=== PATIENT | male | born 1935 | race Caucasian/White ===

== ENCOUNTER 2016-09-02 14:48 | Emergency (ER) | payer MEDICARE, OTHER ==
[2016-09-02 15:05] VITALS: BP 140/78; PULSE 76; TEMP 98.5; BMI 24.7
--- NOTE | 2016-09-02 16:21 | PDOC ---
History of Present Illness - General Chief Complaint: Wound Infection Stated Complaint: Allergic Reaction Time Seen by Provider: 09/02/16 15:29 History Source: Patient Exam Limitations: No Limitations - History of Present Illness Initial Comments: 09/02/16 16:16 My Chief Complaint: tiny slit like area left corner of mouth History of present illness: Patient is a 80-year-old male with a history of hypertension, and hyperlipidemia and benign prostatic hypertrophy here today complaining of having a tender area on the corner of his left mouth for which he has been applying Zovirax cream 5% once daily and try minutes alone acetate 0.1% cream twice a day since 07/29/2016. Patient also reports that he put lemon juice on the area today. Skin on the corner of mouth appears hypopigmented & moist. Timing/Duration: other (since 07/29/16) Severity: mild Associated Symptoms: reports: other (moist, hypopigmented skin left corner of mouth ) Past History - Past Medical History Allergies/Adverse Reactions: Allergies Allergy/AdvReac Type Severity Reaction Status Date / Time No Known Allergies Allergy Verified 09/02/16 15:04 Home Medications: Ambulatory Orders Metoprolol Tartrate [Lopressor -] 50 mg PO DAILY 02/01/12 Ramipril 5 mg PO DAILY 02/03/14 Rosuvastatin Calcium [Crestor] 10 mg PO DAILY 02/03/14 Acetaminophen [Tylenol .Extra-Strength -] 500 mg PO Q6H PRN 08/01/15 Tamsulosin HCl [Flomax -] 0.8 mg PO HS 08/01/15 Anemia: No Asthma: No Cancer: No Cardiac Disorders: No CVA: No COPD: No CHF: No Dementia: No Diabetes: No GI Disorders: No Disorders: Yes (BPH) HTN: Yes Hypercholesterolemia: Yes Liver Disease: No Seizures: No Thyroid Disease: No - Surgical History Abdominal Surgery: Yes (Right Inguinal Hernia Repair) Appendectomy: No Cardiac Surgery: No Cholecystectomy: No Lung Surgery: No Neurologic Surgery: No Orthopedic Surgery: Yes (Right Knee Replacement) - Immunization History Immunization Up to Date: Yes - Psycho/Social/Smoking Cessation Hx Anxiety: No Suicidal Ideation: No Smoking Status: No Smoking History: Never smoked Have you smoked in the past 12 months: No Number of Cigarettes Smoked Daily: 0 Information on smoking cessation initiated: No Hx Alcohol Use: No Drug/Substance Use Hx: No Substance Use Type: None Hx Substance Use Treatment: No Review of Systems - Review of Systems HEENTM: No: Symptoms Reported Respiratory: No: Symptoms reported Cardiac (ROS): No: Symptoms Reported ABD/GI: No: Symptoms Reported : No: Symptoms Reported Musculoskeletal: No: Symptoms Reported Integumentary: Yes: Other (skin left corner of mouth moist, hypopigmented) Neurological: No: Symptoms reported *Physical Exam - Vital Signs Last Vital Signs Temp Pulse Resp BP Pulse Ox 98.5 F 76 18 140/78 100 09/02/16 14:55 09/02/16 14:55 09/02/16 14:55 09/02/16 14:55 09/02/16 14:55 - Physical Exam Comments: 09/02/16 16:21 General Appearance: Yes: Appropriately Dressed HEENT: positive: TMs Normal, Other (skin left corner of mouth, closed, hypopigmented, moist ). negative: Pharyngeal Erythema, Tonsillar Exudate, Tonsillar Erythema, Nasal Congestion, Rhinorrhea, Lesions Neck: negative: Lymphadenopathy (R), Lymphadenopathy (L) Respiratory/Chest: positive: Lungs Clear, Normal Breath Sounds. negative: Chest Tender, Respiratory Distress Cardiovascular: positive: Regular Rhythm, Regular Rate, S1, S2 Integumentary: positive: Moist (left corner of mouth, hypopigmented, closed ), Other Neurologic: positive: Fully Oriented, Alert, Normal Response, Responsive *DC/Admit/Observation/Transfer Diagnosis at time of Disposition: Angular cheilitis - Discharge Dispostion Disposition: HOME Condition at time of disposition: Stable - Patient Instructions Additional Instructions: follow up with treatment specialist Dr. Lofton at [phone] as soon as possible for further evaluation Stop using all creams or lemon juice to area Return to Emergency room if symptoms worsen Patient voiced understanding of discharge instructions and all questions were answered
== END 2016-09-02 16:33 | disposition home or self-care (01) ==
LOC: JER 14:48 → JERFT 14:48
DX: K13.0 Diseases of lips (principal); I10 Essential (primary) hypertension; E78.00 Pure hypercholesterolemia, unspecified; N40.0 Benign prostatic hyperplasia without lower urinary tract symptoms
CPT/HCPCS: 99281-25

== ENCOUNTER 2018-02-28 21:06 | Inpatient (IN) | payer MEDICARE, OTHER ==
--- NOTE | 2018-02-28 21:44 | PDOC ---
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 Son at bedside translating.) - History of Present Illness Initial Comments: 02/28/18 22:09 The patient is an 82M with a PMH of HTN, HLD, and BPH who presents to the ER with complaints of abdominal pain. The patient states that he's had 3 days of gradual onset, constant, and worsening LUQ pressure which radiates upwards to his chest. He admits to mild SOB, nausea, and NBNB vomiting 1 hour ago. He denies fevers and chills. He also states that he walked up 4 flights of stairs today (pt lives on 4th floor w/o elevator) and felt near syncopal but did not syncopize. Past History - Past Medical History Allergies/Adverse Reactions: Allergies Allergy/AdvReac Type Severity Reaction Status Date / Time No Known Allergies Allergy Verified 02/28/18 21:11 Home Medications: Ambulatory Orders Metoprolol Tartrate [Lopressor -] 50 mg PO DAILY 02/01/12 Ramipril 5 mg PO DAILY 02/03/14 Rosuvastatin Calcium [Crestor] 10 mg PO DAILY 02/03/14 Acetaminophen [Tylenol .Extra-Strength -] 500 mg PO Q6H PRN 08/01/15 Tamsulosin HCl [Flomax -] 0.8 mg PO HS 08/01/15 Anemia: No Asthma: No Cancer: No Cardiac Disorders: No CVA: No COPD: No CHF: No Dementia: No Diabetes: No GI Disorders: No Disorders: Yes (BPH) HTN: Yes Hypercholesterolemia: Yes Liver Disease: No Seizures: No Thyroid Disease: No - Surgical History Abdominal Surgery: Yes (Right Inguinal Hernia Repair) Appendectomy: No Cardiac Surgery: No Cholecystectomy: No Lung Surgery: No Neurologic Surgery: No Orthopedic Surgery: Yes (Right Knee Replacement) - Immunization History Immunization Up to Date: Yes - Suicide/Smoking/Psychosocial Hx Smoking Status: No Smoking History: Never smoked Have you smoked in the past 12 months: No Number of Cigarettes Smoked Daily: 0 Hx Alcohol Use: No Drug/Substance Use Hx: No Substance Use Type: None Hx Substance Use Treatment: No Review of Systems - Review of Systems Able to Perform ROS?: Yes Comments:: 02/28/18 22:21 GENERAL/CONSTITUTIONAL: No fever or chills. No weakness. HEAD, EYES, EARS, NOSE AND THROAT: No change in vision. No ear pain or discharge. No sore throat. CARDIOVASCULAR: Positive for lightheaded s/p stair climb. No chest pain, palpitations, or lightheadedness. RESPIRATORY: Positive for intermittent SOB. No cough, wheezing, or hemoptysis. GASTROINTESTINAL: Positive for nausea, vomiting, abdominal pain. GENITOURINARY: No dysuria, frequency, hematuria, or change in urination. MUSCULOSKELETAL: No joint or muscle swelling or pain. No neck or back pain. SKIN: No rash or lesions. NEUROLOGIC: No headache, numbness, tingling, focal weakness, loss of consciousness, or change in strength/sensation. Is the patient limited [place] proficient: No *Physical Exam - Vital Signs Last Vital Signs Temp Pulse Resp BP Pulse Ox 98.7 F 67 18 127/66 100 02/28/18 21:08 02/28/18 21:08 02/28/18 21:08 02/28/18 21:08 02/28/18 21:08 - Physical Exam Comments: 02/28/18 22:24 GENERAL: Well developed, well nourished. Awake and alert. No acute distress. HEENT: Normocephalic, atraumatic. Hearing grossly normal. Moist mucous membranes. PERRLA, EOMI. No conjunctival pallor. Sclera are non-icteric. NECK: Supple. Full ROM. No JVD. CARDIOVASCULAR: Regular rate and rhythm. No murmurs, rubs, or gallops. PULMONARY: No evidence of respiratory distress. Lungs clear to auscultation bilaterally. No wheezing, rales or rhonchi. ABDOMINAL: Soft. TTP over LUQ and LLQ. Non-distended. No rebound or guarding. GENITOURINARY: No CVA tenderness bilaterally. MUSCULOSKELETAL: Normal range of motion at all joints. No bony deformities or tenderness. EXTREMITIES: No cyanosis. No clubbing. No edema. No calf tenderness or swelling. SKIN: Warm and dry. Normal capillary refill. No rashes. No jaundice. NEUROLOGICAL: Alert, awake, appropriate. Cranial nerves 2-12 grossly intact. Normal speech. Gait is normal without ataxia. PSYCHIATRIC: Cooperative. Good eye contact. Appropriate mood and affect. ED Treatment Course - LABORATORY CBC & Chemistry Diagram: 02/28/18 21:45 02/28/18 21:45 - RADIOLOGY Radiology Studies Ordered: Category Date Time Status ABDOMEN & PELVIS CT WITH CONTR [CT] Stat CT Scan 02/28/18 21:36 Ordered CHEST X-RAY PORTABLE* [RAD] Stat Radiology 02/28/18 21:37 Ordered Medical Decision Making - Medical Decision Making 02/28/18 22:25 The patient is an 82M with a PMH of HTN, HLD, and BPH who presents to the ER with 3 days of worsening LUQ pain radiating to his chest, concerning for ACS, pancreatitis, diverticulitis. Pending labs, EKG, CXR, and CTAP. CBC shows mild leukocytosis of 12. CMP, lipase, and troponin. 02/28/18 23:10 Lipase >30,000. Will d/c CTAP and admit for pancreatitis. 03/01/18 00:24 I have endorsed the patient to Dr. Benavides for admission. *DC/Admit/Observation/Transfer Diagnosis at time of Disposition: Pancreatitis Qualifiers: Chronicity: acute Pancreatitis type: alcohol induced Acute pancreatitis complication: unspecified Qualified Code(s): K85.20 - Alcohol induced acute pancreatitis without necrosis or infection - Discharge Dispostion Condition at time of disposition: Guarded Decision to Admit order: Yes - Referrals - Patient Instructions - Post Discharge Activity
--- NOTE | 2018-02-28 22:03 | PDOC ---
Attending Attestation - HPI HPI: 02/28/18 22:54 The patient is a 82 year old male with a significant PMH of hypertension and hyperlipidemia who presents to the emergency department with left upper quadrant pain for 3 days. The patient describes his abdominal pain as pressure like. He reports some associated shortness of breath, nausea and vomiting ( non bilious/ non bloody). The patient states that his abdominal pain has been constant and worsening for these past 3 days. As per family at bedside, the patient experienced a near syncopal episode this afternoon secondary to going up 4 flights of stairs at home and feeling lightheadedness. The patient denies any other symptoms. He denies any fever, chills, diarrhea, constipation, or urinary symptoms. He denies any chest pain, headache or dizziness. The patient denies any other complaints. - Physicial Exam PE: 02/28/18 22:55 GENERAL: Awake, alert, and fully oriented, in no acute distress HEAD: No signs of trauma EYES: PERRLA, EOMI, sclera anicteric, conjunctiva clear ENT: Auricles normal inspection, hearing grossly normal, nares patent, oropharynx clear without exudates. Moist mucosa NECK: Normal ROM, supple, no lymphadenopathy, JVD, or masses LUNGS: Breath sounds equal, clear to auscultation bilaterally. No wheezes, and no crackles HEART: Regular rate and rhythm, normal S1 and S2, no murmurs, rubs or gallops ABDOMEN: (+)LUQ EPIGASTRIC TENDERNESS. Soft, normoactive bowel sounds. No guarding, no rebound. No masses EXTREMITIES: Normal range of motion, no edema. No clubbing or cyanosis. No cords, erythema, or tenderness NEUROLOGICAL: Cranial nerves II through XII grossly intact. Normal speech, normal gait SKIN: Warm, Dry, normal turgor, no rashes or lesions noted. Documentation prepared by Judi Bustos, acting as medical laboratory manager for Stacia Stratton MD. <Judi Bustos - Last Filed: 02/28/18 22:54> - Resident Resident Name: Brian Vee - ED Attending Attestation I have performed the following: I have examined & evaluated the patient, The case was reviewed & discussed with the resident, I agree w/resident's findings & plan - Physicial Exam PE: 03/01/18 00:18 Pt has no icterus. His skin is not jaundiced; He has RUQ pain and he has slight pain with respirations as a result. Pt has no flank pain and he has no pitting edema. Pt has some right sided inguinal lymph nodes. Pt has no fever. - Medical Decision Making 03/01/18 00:19 Pt has decreased oral iintake x 3 days. Pt states that he hasn't had a drink in 40 yrs, and that he used to be an alcoholic. <Stacia Stratton - Last Filed: 03/01/18 00:20>
[2018-02-28 22:05] LABS: BASO % 0.4 % (0-2.0); EOS % 0.4 % (0-4.5); HEMOGLOBIN 15.4 GM/dL (11.7-16.9); LYMPH % 5.5 % (8-40); MCH 33.3 pg (25.7-33.7); MCHC 34.3 g/dl (32.0-35.9); MEAN CELL VOLUME 97.1 fl (80-96); MEAN PLT VOLUME 10.6 fl (7.5-11.1); MONO % 5.6 % (3.8-10.2); NEUT % 88.1 % (42.8-82.8); PLATELET COUNT 201 K/MM3 (134-434); RBC 4.63 M/mm3 (4.00-5.60); RDW 13.2 % (11.9-15.9); WHITE BLOOD COUNT 12.1 K/mm3 (4.0-10.0)
[2018-02-28 23:06] LABS: ALBUMIN 3.6 g/dl (3.4-5.0); ALK PHOS 154 U/L (45-117); ANION GAP 7 MMOL/L (8-16); BILIRUBIN,TOTAL 2.7 mg/dL (0.2-1); BLOOD UREA NITROGEN 12 mg/dL (7-18); CALCIUM 8.8 mg/dL (8.5-10.1); CHLORIDE 102 mmol/L (98-107); CO2 31 mmol/L (21-32); CREATININE 0.9 mg/dL (0.55-1.3); GLUCOSE,RANDOM 128 mg/dL (74-106); POTASSIUM 3.5 mmol/L (3.5-5.1); SGOT/AST 506 U/L (15-37); SGPT/ALT 334 U/L (13-61); SODIUM 140 mmol/L (136-145); TOT PROT 7.2 g/dl (6.4-8.2)
[2018-02-28] MEDS ORDERED: ACETAMINOPHEN 1000 MG/100 ML VIAL (NON FORMULARY) IVPB ONE (23:13)
[2018-02-28] MEDS ORDERED: SODIUM CHLORIDE 0.9% 1000 ML INFUS.BAG IV ONE (23:13)
[2018-02-28 23:27] LABS: LIPASE > 30000 U/L (73-393)
[2018-02-28] MEDS ORDERED: ACETAMINOPHEN INJECTION 100 ML IVPB ONE (23:55)
[2018-03-01] MEDS ORDERED: LACTATED RINGERS SOLUTION 1,000 ML IV SCH (01:15)
--- NOTE | 2018-03-01 01:37 | HP ---
CHIEF COMPLAINT: abdominal pain PCP: HISTORY OF PRESENT ILLNESS: Pt is an 82 y/o M with PMH HLD, HTN who presents to ED with 3 d abdominal pain, nausea, and 1 episode vomiting red stomach contents after eating a red fruit. Pain is intermittent with no exacerbating or alleviating factors. Pt states he has never had this pain before. No other complaints. No diarrhea/dysuria. ER course was notable for: (1) vitals stable. (2) WBC 12, AST 506, ALT 334, ALP 154, Lipase 32648 (3) NS, ofirmev Recent Travel: PAST MEDICAL HISTORY: HLD, HTN PAST SURGICAL HISTORY: Social History: Smoking: denies Alcohol: former. No EtOH in 37 years Drugs: denies Family History: Allergies No Known Allergies Allergy (Verified 02/28/18 21:11) HOME MEDICATIONS: Home Medications Medication Instructions Recorded Metoprolol Tartrate [Lopressor -] 50 mg PO DAILY 02/01/12 Ramipril 5 mg PO DAILY 02/03/14 Rosuvastatin Calcium [Crestor] 10 mg PO DAILY 02/03/14 Acetaminophen [Tylenol 500 mg PO Q6H PRN 08/01/15 .Extra-Strength -] Tamsulosin HCl [Flomax -] 0.8 mg PO HS 08/01/15 REVIEW OF SYSTEMS CONSTITUTIONAL: Absent: fever, chills, diaphoresis, generalized weakness, malaise, loss of appetite, weight change HEENT: Absent: rhinorrhea, nasal congestion, throat pain, throat swelling, difficulty swallowing, mouth swelling, ear pain, eye pain, visual changes CARDIOVASCULAR: Absent: chest pain, syncope, palpitations, irregular heart rate, lightheadedness , peripheral edema RESPIRATORY: Absent: cough, shortness of breath, dyspnea with exertion, orthopnea, wheezing, stridor, hemoptysis GASTROINTESTINAL: abdominal pain, nausea, vomiting Absent: , abdominal distension, diarrhea, constipation, melena, hematochezia GENITOURINARY: Absent: dysuria, frequency, urgency, hesitancy, hematuria, flank pain, genital pain MUSCULOSKELETAL: Absent: myalgia, arthralgia, joint swelling, back pain, neck pain SKIN: Absent: rash, itching, pallor HEMATOLOGIC/IMMUNOLOGIC: Absent: easy bleeding, easy bruising, lymphadenopathy, frequent infections ENDOCRINE: Absent: unexplained weight gain, unexplained weight loss, heat intolerance, cold intolerance NEUROLOGIC: Absent: headache, focal weakness or paresthesias, dizziness, unsteady gait, seizure, mental status changes, bladder or bowel incontinence PSYCHIATRIC: Absent: anxiety, depression, suicidal or homicidal ideation, hallucinations. PHYSICAL EXAMINATION Vital Signs - 24 hr 02/28/18 21:08 Temperature 98.7 F Pulse Rate 67 Respiratory 18 Rate Blood Pressure 127/66 O2 Sat by Pulse 100 Oximetry (%) Gen: NAD comfortable HEENT: NCAT, eomi neck: supple no jvd Cardio: rrr, normal s1s2, no mrg Pulm: cta b/l Abd: nondistended, soft, tender in epigastrium, RUQ, LUQ, pos bs ext: 2+ pulses Laboratory Results - last 24 hr 02/28/18 02/28/18 21:45 21:45 WBC 12.1 H RBC 4.63 Hgb 15.4 Hct 45.0 MCV 97.1 H MCH 33.3 MCHC 34.3 RDW 13.2 Plt Count 201 D MPV 10.6 Absolute Neuts (auto) 10.7 H Neutrophils % 88.1 H D Lymphocytes % 5.5 L D Monocytes % 5.6 Eosinophils % 0.4 Basophils % 0.4 Nucleated RBC % 0 Sodium 140 Potassium 3.5 Chloride 102 Carbon Dioxide 31 Anion Gap 7 L BUN 12 Creatinine 0.9 Creat Clearance w eGFR > 60 Random Glucose 128 H Calcium 8.8 Total Bilirubin 2.7 H AST 506 H ALT 334 H Alkaline Phosphatase 154 H Creatine Kinase 78 Troponin I < 0.02 Total Protein 7.2 Albumin 3.6 Lipase > 26312 H CTAP imaging sap pp consultant: Peripancreatic fat stranding, correlate clinically for acute pancreatitis. 1 cm lipomatous focus incidentally noted in pancreatic body. No bowel obstruction, colitis, free fluid or free air. Normal appendix. Diverticulosis colon without acute diverticulitis. Unremarkable gallbladder. Small left renal cyst. Small umbilical and left inguinal region hernias containing fat. ASSESSMENT/PLAN: Pt is an 82 y/o M w/ PMH HTN, HLD who presented to ED with complaint of abd pain , nausea, and vomiting. Pt found to have acute pancreatitis. #Acute pancreatitis -Lipase > 30k -CT with fat stranding -abdominal pain -unclear etiology at this time. Pt is not a drinker, and has concominant transaminitis. No stone on imaging -LR @ 125 -NPO -morphine PRN #transaminitis -follow up official abdominal imaging read -repeat labs #HTN -c/w home Lopressor 50, ramipril 5 #HLD -c/w home crestor 10 #BPH -c/w flomax #FEN -LR -lytes wnl -NPO #PPx -HSQ #Dispo -Medsurg Joby Armstrong MD PGY-2 IM Visit type - Emergency Visit Emergency Visit: Yes ED Registration Date: 02/28/18 Care time: The patient presented to the Emergency Department on the above date and was hospitalized for further evaluation of their emergent condition. - New Patient This patient is new to me today: Yes Date on this admission: 03/01/18 - Critical Care Critical Care patient: No
--- NOTE | 2018-03-01 01:45 | PN ---
Teaching Attending Note Name of Resident: Joby Armstrong ATTENDING PHYSICIAN STATEMENT I saw and evaluated the patient. I reviewed the resident's note and discussed the case with the resident. I agree with the resident's findings and plan as documented. SUBJECTIVE: OBJECTIVE: ASSESSMENT AND PLAN: 82 y/o M with PMH HLD, HTN who presents to ED with 3 d abdominal pain, nausea, and 1 episode vomiting red stomach contents after eating a red fruit. Pain is intermittent with no exacerbating or alleviating factors. Pt states he has never had this pain before. No other complaints. No diarrhea/dysuria. plan: admit patient for acute pancreatitis c/w home medication feed the patient whenever the patient requires GI consult pain management trend LFT abdominal US possible MRCP patient can have developed choledocolithisis induced pancreatitis will follow up with GI recommendation hold the rosuvastatin for the elevated liver enzymes c/w metoprolol c/w ramipirl if the bp is elevated
[2018-03-01] MEDS ORDERED: HEPARIN NA (PORCINE) 5,000 UNITS/ML 1ML VIAL SQ SCH (06:00)
[2018-03-01 06:21] LABS: BASO % 0.4 % (0-2.0); EOS % 0.5 % (0-4.5); HEMATOCRIT 41.2 % (35.4-49); HEMOGLOBIN 14.5 GM/dL (11.7-16.9); LYMPH % 16.2 % (8-40); MCH 33.9 pg (25.7-33.7); MCHC 35.2 g/dl (32.0-35.9); MEAN CELL VOLUME 96.5 fl (80-96); MEAN PLT VOLUME 10.5 fl (7.5-11.1); MONO % 6.7 % (3.8-10.2); NEUT % 76.2 % (42.8-82.8); PLATELET COUNT 202 K/MM3 (134-434); RBC 4.27 M/mm3 (4.00-5.60); RDW 13.4 % (11.9-15.9); WHITE BLOOD COUNT 8.1 K/mm3 (4.0-10.0)
[2018-03-01 06:37] LABS: ALBUMIN 3.2 g/dl (3.4-5.0); ALK PHOS 125 U/L (45-117); ANION GAP 5 MMOL/L (8-16); BILIRUBIN,TOTAL 1.7 mg/dL (0.2-1); BLOOD UREA NITROGEN 12 mg/dL (7-18); CALCIUM 8.2 mg/dL (8.5-10.1); CHLORIDE 104 mmol/L (98-107); CO2 31 mmol/L (21-32); CREATININE 0.8 mg/dL (0.55-1.3); GLUCOSE,RANDOM 110 mg/dL (74-106); MAGNESIUM 2.3 mg/dL (1.8-2.4); PHOSPHOROUS 4.2 mg/dL (2.5-4.9); SGOT/AST 261 U/L (15-37); SGPT/ALT 288 U/L (13-61); SODIUM 140 mmol/L (136-145); TOT PROT 6.2 g/dl (6.4-8.2)
[2018-03-01] MEDS ORDERED: METOPROLOL TARTRATE 50 MG TABLET (FP) PO SCH (10:00)
[2018-03-01] MEDS: MORPHINE SULFATE 2 MG/ML VIAL IVPUSH PRN (10:08)
[2018-03-01] MEDS: RAMIPRIL 5 MG CAPSULE (FP) PO SCH (10:39)
--- NOTE | 2018-03-01 11:41 | EKG ---
Test Reason : Blood Pressure : / mmHG Vent. Rate : 067 BPM Atrial Rate : 067 BPM P-R Int : 194 ms QRS Dur : 080 ms QT Int : 438 ms P-R-T Axes : 044 -22 034 degrees QTc Int : 462 ms SINUS RHYTHM WITH OCCASIONAL PREMATURE VENTRICULAR COMPLEXES AND PREMATURE ATRIAL COMPLEXES WHEN COMPARED WITH ECG OF 01-AUG-2015 11:39, PREMATURE VENTRICULAR COMPLEXES ARE NOW PRESENT Confirmed by RADHA TERRELL MD ([id number]) on 03/01/2018 11:41:08 AM Referred By: Confirmed By:RADHA TERRELL MD
--- NOTE | 2018-03-01 11:54 | PN ---
Progress Note (short form) - Note Progress Note: Subjective: abd pain subsided now after pain meds. reports intermittent pain in LLQ with radiation to epigastric area since . pain lasted x 2-3 hours each time, then became constant yesterday. no alcohol use , no h/o gall stones, no drug use. no episodes like that in past. Objective: Vital Signs: Last Vital Signs Temp Pulse Resp BP Pulse Ox 98.4 F 69 20 140/88 100 03/01/18 06:45 03/01/18 06:45 03/01/18 06:45 03/01/18 06:45 03/01/18 04:30 Laboratory Results - last 24 hr 02/28/18 02/28/18 03/01/18 21:45 21:45 06:08 WBC 12.1 H 8.1 RBC 4.63 4.27 Hgb 15.4 14.5 Hct 45.0 41.2 MCV 97.1 H 96.5 H MCH 33.3 33.9 H MCHC 34.3 35.2 RDW 13.2 13.4 Plt Count 201 D 202 MPV 10.6 10.5 Absolute Neuts (auto) 10.7 H 6.1 Neutrophils % 88.1 H D 76.2 Lymphocytes % 5.5 L D 16.2 D Monocytes % 5.6 6.7 Eosinophils % 0.4 0.5 Basophils % 0.4 0.4 Nucleated RBC % 0 0 Sodium 140 Potassium 3.5 Chloride 102 Carbon Dioxide 31 Anion Gap 7 L BUN 12 Creatinine 0.9 Creat Clearance w eGFR > 60 Random Glucose 128 H Calcium 8.8 Phosphorus Magnesium Total Bilirubin 2.7 H AST 506 H ALT 334 H Alkaline Phosphatase 154 H Creatine Kinase 78 Troponin I < 0.02 Total Protein 7.2 Albumin 3.6 Lipase > 34971 H 03/01/18 06:08 WBC RBC Hgb Hct MCV MCH MCHC RDW Plt Count MPV Absolute Neuts (auto) Neutrophils % Lymphocytes % Monocytes % Eosinophils % Basophils % Nucleated RBC % Sodium 140 Potassium 4.0 Chloride 104 Carbon Dioxide 31 Anion Gap 5 L BUN 12 Creatinine 0.8 Creat Clearance w eGFR > 60 Random Glucose 110 H Calcium 8.2 L Phosphorus 4.2 Magnesium 2.3 Total Bilirubin 1.7 H AST 261 H ALT 288 H Alkaline Phosphatase 125 H Creatine Kinase Troponin I Total Protein 6.2 L Albumin 3.2 L Lipase Physical Exam: NAD , AAox3. HEENT: icteric sclera, jaundiced MM. MMM CV: RRR no mTRG Lungs: CATB Abd: sfot, ND, TTP in all quadrants, no rebound tenderness or guarding, Neg Bautista's Ext : no edema ,. scaly skin on toes Imaging: Ct scan image reviewed. report pending Assessment/Plan: 82 y/o man with h/o HTN, HLP, and BPH who presented with abd pain and was found to have acute pancreatitis with transaminitis . 1- Acute pancreatitis: unclear etiology, but might be due to gall stones . he might have passed a stone. doubt cholecystitis. no alcohol use or drug use. he is not taking statins an y more. - IVF - pain control - check triglycerides - check MRCP to r/o CBD stones and to evaluate tail of pancreas. - GI consult - monitor LFTs 2- HTN: cont toprol and ramipril 3- BPH hold off DVT px in case he needs ERCP d/w him and his son Visit type - Emergency Visit Emergency Visit: Yes ED Registration Date: 02/28/18 Care time: The patient presented to the Emergency Department on the above date and was hospitalized for further evaluation of their emergent condition. - New Patient This patient is new to me today: Yes Date on this admission: 03/01/18 - Critical Care Critical Care patient: No
--- NOTE | 2018-03-01 12:43 | CON.GI ---
Consult Consult Specialty:: Gastroenterology Referred by:: Dr. Jeni Castro Reason for Consultation:: abdominal pain - History of Present Illness Chief Complaint: severe abdominal pain and inability to eat History of Present Illness: 82M developed severe left abdominal pain on 02/26 that later spread to the epigastrium. He has been unable to eat since the pain began. He has been moving his bowels well. Has nausea and did vomit a few times. He had a near syncopal spell at home. He has never had this pain before. He had an EGD with Dr Britt which was unrevealing and a colonoscopy with my group that he also reports as having been normal. No previous GI problems. No alcohol usage. His lipase is over 30K and his LFTs and bilirubin are elevated and trending down. CT scan reveals pancreatitis. His son Cesar served as our foreign language interpreter. 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 (year): age 42 History of Recent Travel: No Home Medications - Allergies Allergies/Adverse Reactions: Allergies Allergy/AdvReac Type Severity Reaction Status Date / Time No Known Allergies Allergy Verified 02/28/18 21:11 - Home Medications Home Medications: Ambulatory Orders Ramipril 5 mg PO DAILY 02/03/14 Tamsulosin HCl [Flomax -] 0.8 mg PO HS 08/01/15 Metoprolol Succinate 50 mg PO DAILY 03/01/18 Family Disease History - Family Disease History Family Disease History: Heart Disease: Mother ( 72 heart disease), CA: Father ( 83 throat cancer), Other: Father, Sister (Alzheimers) Review of Systems - Review of Systems Constitutional: reports: No Symptoms Eyes: reports: No Symptoms HENT: reports: No Symptoms Neck: reports: No Symptoms Cardiovascular: reports: No Symptoms Respiratory: reports: No Symptoms Gastrointestinal: reports: No Symptoms Genitourinary: reports: Frequency Musculoskeletal: reports: No Symptoms Physical Exam-GI Vital Signs: Vital Signs Temperature 98.4 F 03/01/18 06:45 Pulse Rate 69 03/01/18 06:45 Respiratory Rate 20 03/01/18 06:45 Blood Pressure 140/88 03/01/18 06:45 O2 Sat by Pulse Oximetry (%) 100 03/01/18 04:30 CBC,CMP WBC 8.1 K/mm3 (4.0-10.0) 03/01/18 06:08 RBC 4.27 M/mm3 (4.00-5.60) 03/01/18 06:08 Hgb 14.5 GM/dL (11.7-16.9) 03/01/18 06:08 Hct 41.2 % (35.4-49) 03/01/18 06:08 MCV 96.5 fl (80-96) H 03/01/18 06:08 MCH 33.9 pg (25.7-33.7) H 03/01/18 06:08 MCHC 35.2 g/dl (32.0-35.9) 03/01/18 06:08 RDW 13.4 % (11.9-15.9) 03/01/18 06:08 Plt Count 202 K/MM3 (134-434) 03/01/18 06:08 MPV 10.5 fl (7.5-11.1) 03/01/18 06:08 Absolute Neuts (auto) 6.1 K/mm3 (1.5-8.0) 03/01/18 06:08 Neutrophils % 76.2 % (42.8-82.8) 03/01/18 06:08 Lymphocytes % 16.2 % (8-40) D 03/01/18 06:08 Monocytes % 6.7 % (3.8-10.2) 03/01/18 06:08 Eosinophils % 0.5 % (0-4.5) 03/01/18 06:08 Basophils % 0.4 % (0-2.0) 03/01/18 06:08 Nucleated RBC % 0 % (0-0) 03/01/18 06:08 Sodium 140 mmol/L (136-145) 03/01/18 06:08 Potassium 4.0 mmol/L (3.5-5.1) 03/01/18 06:08 Chloride 104 mmol/L (98-107) 03/01/18 06:08 Carbon Dioxide 31 mmol/L (21-32) 03/01/18 06:08 Anion Gap 5 MMOL/L (8-16) L 03/01/18 06:08 BUN 12 mg/dL (7-18) 03/01/18 06:08 Creatinine 0.8 mg/dL (0.55-1.3) 03/01/18 06:08 Creat Clearance w eGFR > 60 (>60) 03/01/18 06:08 Random Glucose 110 mg/dL (74-106) H 03/01/18 06:08 Calcium 8.2 mg/dL (8.5-10.1) L 03/01/18 06:08 Phosphorus 4.2 mg/dL (2.5-4.9) 03/01/18 06:08 Magnesium 2.3 mg/dL (1.8-2.4) 03/01/18 06:08 Total Bilirubin 1.7 mg/dL (0.2-1) H 03/01/18 06:08 AST 261 U/L (15-37) H 03/01/18 06:08 ALT 288 U/L (13-61) H 03/01/18 06:08 Alkaline Phosphatase 125 U/L (45-117) H 03/01/18 06:08 Creatine Kinase 78 IU/L (26-308) 02/28/18 21:45 Troponin I < 0.02 ng/ml (0.00-0.05) 02/28/18 21:45 Total Protein 6.2 g/dl (6.4-8.2) L 03/01/18 06:08 Albumin 3.2 g/dl (3.4-5.0) L 03/01/18 06:08 Lipase > 25323 U/L (73-393) H 02/28/18 21:45 Current Medications Generic Name Dose Route Start Last Admin Trade Name Freq PRN Reason Stop Dose Admin Lactated Ringer's 1,000 mls @ 125 mls/hr 03/01/18 01:15 EST 03/01/18 02:45 Lactated Ringers Solution IV 125 mls/hr ASDIR [facility] Administration Metoprolol Succinate 50 mg 03/02/18 10:00 Toprol Xl - PO DAILY [facility] Morphine Sulfate 2 mg 03/01/18 01:59 EST 03/01/18 10:08 Morphine Sulfate IVPUSH 2 mg Q6H PRN Administration PAIN LEVEL 1-5 Ramipril 5 mg 03/01/18 10:00 03/01/18 10:39 Altace - PO 5 mg DAILY [facility] Administration Tamsulosin HCl 0.8 mg 03/01/18 22:00 Flomax - PO HS [facility] Constitutional: Yes: Calm Eyes: Yes: Conjunctiva Clear HENT: Yes: Atraumatic Neck: Yes: Supple Cardiovascular: Yes: Regular Rate and Rhythm Respiratory: Yes: CTA Bilaterally Gastrointestinal Inspection: Yes: WNL, Scars (RIH incision) ...Auscultate: Yes: Hypoactive Bowel Sounds ...Palpate: Yes: Tenderness (diffuse tenderness that is worst in the LLQ, no peritoneal signs) ...Rectal Exam: Yes: Guaiac Negative, Other (2+ prostate, no masses, g neg stool ) Edema: No Peripheral Pulses WNL: Yes Neurological: Yes: Alert, Oriented Labs: CBC, BMP 03/01/18 06:08 03/01/18 06:08 Laboratory Tests 02/01/12 08/01/15 02/28/18 10:46 11:53 21:45 Total Bilirubin 1.3 H 0.8 D 2.7 H ALT 35 20 D 334 H AST 25 24 506 H Alkaline Phosphatase 154 H Lipase > 06165 H 03/01/18 06:08 Total Bilirubin 1.7 H ALT 288 H AST 261 H Alkaline Phosphatase 125 H Lipase Imaging - Results Cat Scan: Image Reviewed (pancreatitis is evident) Problem List - Problems (1) Acute biliary pancreatitis Assessment/Plan: The pain pattern, imaging and LFT abnormalities are most consistent with biliary pancreatitis. With his son Herbert franco I therefore discussed the ultimate need for surgery and more imminent need for an ERCP. I have informed him of the potential complications associated with ERCP including perforation, hemorrhage and ERCP induced pancreatitis that could lead to multiorgan failure. The downward LFT trend suggests that he has passed the stone. Await MRCP results. Surgery should be consulted. Will order blood cultures, start antibiotics and increase RL rate. Code(s): K85.10 - BILIARY ACUTE PANCREATITIS WITHOUT NECROSIS OR INFECTION (2) Abdominal pain Code(s): R10.9 - UNSPECIFIED ABDOMINAL PAIN (3) Vomiting Code(s): R11.10 - VOMITING, UNSPECIFIED (4) Abnormal liver function tests Code(s): R94.5 - ABNORMAL RESULTS OF LIVER FUNCTION STUDIES Assessment/Plan NPO for biliary pancreatittis Will start antibiotics to protect against cholangitis Await MRCP as may need ERCP Communicated with Dr Castro for surgical consultation and in general about this case
[2018-03-01] MEDS: LACTATED RINGERS SOLUTION 1,000 ML IV SCH (13:18)
[2018-03-01 14:19] VITALS: BMI 24.0
[2018-03-01] MEDS: AMPICILLIN NA/SULBACTAM NA 1.5 GM in SODIUM CHLORIDE 100 ML IVPB SCH (18:17)
[2018-03-01] MEDS: TAMSULOSIN HCL 0.4 MG CAP PO SCH (21:46)
[2018-03-01] MEDS ORDERED: ROSUVASTATIN CA 10 MG TABLET (FP) PO SCH (22:00)
[2018-03-02] MEDS: LACTATED RINGERS SOLUTION 1,000 ML IV SCH (00:30)
[2018-03-02] MEDS: AMPICILLIN NA/SULBACTAM NA 1.5 GM in SODIUM CHLORIDE 100 ML IVPB SCH ×3 (01:04→18:04)
[2018-03-02 06:30] LABS: BASO % 0.3 % (0-2.0); EOS % 0.5 % (0-4.5); HEMATOCRIT 38.8 % (35.4-49); HEMOGLOBIN 13.7 GM/dL (11.7-16.9); LYMPH % 9.7 % (8-40); MCH 34.3 pg (25.7-33.7); MCHC 35.2 g/dl (32.0-35.9); MEAN CELL VOLUME 97.5 fl (80-96); MEAN PLT VOLUME 10.7 fl (7.5-11.1); MONO % 7.1 % (3.8-10.2); NEUT % 82.4 % (42.8-82.8); PLATELET COUNT 179 K/MM3 (134-434); RBC 3.98 M/mm3 (4.00-5.60); RDW 13.2 % (11.9-15.9); WHITE BLOOD COUNT 9.8 K/mm3 (4.0-10.0)
[2018-03-02 06:46] LABS: INR 1.25 (0.83-1.09); PROTHROMBIN TIME (PATIENT) 14.8 SEC (9.7-13.0)
[2018-03-02 07:01] LABS: ALBUMIN 2.8 g/dl (3.4-5.0); ALK PHOS 96 U/L (45-117); AMYLASE 180 U/L (25-115); ANION GAP 9 MMOL/L (8-16); BILIRUBIN,DIRECT 0.4 mg/dL (0.0-0.2); BILIRUBIN,TOTAL 1.8 mg/dL (0.2-1); BLOOD UREA NITROGEN 11 mg/dL (7-18); CALCIUM 7.9 mg/dL (8.5-10.1); CHLORIDE 102 mmol/L (98-107); CO2 27 mmol/L (21-32); CREATININE 0.7 mg/dL (0.55-1.3); GLUCOSE,RANDOM 96 mg/dL (74-106); LIPASE 313 U/L (73-393); MAGNESIUM 1.9 mg/dL (1.8-2.4); PHOSPHOROUS 3.5 mg/dL (2.5-4.9); POTASSIUM 3.5 mmol/L (3.5-5.1); SGOT/AST 96 U/L (15-37); SGPT/ALT 153 U/L (13-61); SODIUM 138 mmol/L (136-145); TOT PROT 5.5 g/dl (6.4-8.2)
[2018-03-02] MEDS ORDERED: LACTATED RINGERS SOLUTION 1,000 ML IV SCH ×2 (08:45→21:23)
[2018-03-02] MEDS ORDERED: AMPICILLIN NA/SULBACTAM NA 1.5 GM VIAL ONE ×2 (09:05→17:42)
[2018-03-02] MEDS ORDERED: SODIUM CHLORIDE 100 ML IVPB ONE ×2 (09:05→17:42)
[2018-03-02] MEDS: RAMIPRIL 5 MG CAPSULE (FP) PO SCH (10:28)
--- NOTE | 2018-03-02 10:42 | CONSULT ---
- Consultation REQUESTING PROVIDER: Matthew SHEPHERD CONSULT REQUEST: We have been asked to surgically evaluate this patient for ( specify). PCP:Jeni Castro HISTORY OF PRESENT ILLNESS: Nausea and vomiting and abdominal pain after eating which brought him to the ER; he never had this before PMHx: HTN; BPH PSHx: none Home Medications Medication Instructions Recorded Ramipril 5 mg PO DAILY 02/03/14 Tamsulosin HCl [Flomax -] 0.8 mg PO HS 08/01/15 Metoprolol Succinate 50 mg PO DAILY 03/01/18 Allergies Allergy/AdvReac Type Severity Reaction Status Date / Time No Known Allergies Allergy Verified 02/28/18 21:11 REVIEW OF SYSTEMS: CONSTITUTIONAL: Absent: fever, chills, diaphoresis, generalized weakness, malaise, loss of appetite, weight change CARDIOVASCULAR: Absent: chest pain, syncope, palpitations, irregular heart rate, lightheadedness , peripheral edema RESPIRATORY: Absent: cough, shortness of breath, dyspnea with exertion, wheezing, stridor, hemoptysis GASTROINTESTINAL: Absent: abdominal pain, abdominal distension, nausea, vomiting, diarrhea, constipation, melena, hematochezia GENITOURINARY: Present: dysuria, frequency, urgency, hesitancy, MUSCULOSKELETAL: Absent: myalgia, arthralgia, joint swelling, back pain, neck pain SKIN: Absent: rash, itching, pallor HEMATOLOGIC/IMMUNOLOGIC: Absent: easy bleeding, easy bruising, lymphadenopathy NEUROLOGIC: Absent: headache, focal weakness, paresthesias, dizziness, unsteady gait, seizure, mental status changes, bladder or bowel incontinence PSYCHIATRIC: Absent: anxiety, depression, suicidal or homicidal ideation, hallucinations. PHYSICAL EXAM: GENERAL: Awake, alert, and fully oriented, in no acute distress. HEAD: Normal with no signs of trauma. EYES: sclera anicteric, conjunctiva clear. NECK: Normal ROM, supple without lymphadenopathy, JVD, or masses. ABDOMEN: Soft, nontender, not distended, normoactive bowel sounds, no guarding, no rebound, no masses. No organomegaly. reducible umbilical hernia MUSCULOSKELETAL: Normal ROM at all joints. No bony deformities or tenderness. No CVA tenderness. UPPER EXTREMITIES: 2+ pulses, warm, well-perfused. No cyanosis. Cap refill <2 seconds. No peripheral edema. LOWER EXTREMITIES: 2+ pulses, warm, well-perfused. No calf tenderness. No peripheral edema. NEUROLOGICAL: Normal speech, gait not observed. PSYCH: Cooperative. Good eye contact. Appropriate mood and affect. SKIN: Warm, dry, normal turgor, no rashes or lesions noted. Vital Signs Temperature 98.6 F 03/02/18 09:10 Pulse Rate 70 03/02/18 09:10 Respiratory Rate 18 03/02/18 09:10 Blood Pressure 108/72 03/02/18 09:10 O2 Sat by Pulse Oximetry (%) 99 03/01/18 20:44 Lab Results WBC 9.8 K/mm3 (4.0-10.0) 03/02/18 05:30 RBC 3.98 M/mm3 (4.00-5.60) L 03/02/18 05:30 Hgb 13.7 GM/dL (11.7-16.9) 03/02/18 05:30 Hct 38.8 % (35.4-49) 03/02/18 05:30 MCV 97.5 fl (80-96) H 03/02/18 05:30 MCHC 35.2 g/dl (32.0-35.9) 03/02/18 05:30 RDW 13.2 % (11.9-15.9) 03/02/18 05:30 Plt Count 179 K/MM3 (134-434) 03/02/18 05:30 Sodium 138 mmol/L (136-145) 03/02/18 05:30 Potassium 3.5 mmol/L (3.5-5.1) 03/02/18 05:30 Chloride 102 mmol/L (98-107) 03/02/18 05:30 Carbon Dioxide 27 mmol/L (21-32) 03/02/18 05:30 Anion Gap 9 MMOL/L (8-16) 03/02/18 05:30 BUN 11 mg/dL (7-18) 03/02/18 05:30 Creatinine 0.7 mg/dL (0.55-1.3) 03/02/18 05:30 Random Glucose 96 mg/dL (74-106) 03/02/18 05:30 Calcium 7.9 mg/dL (8.5-10.1) L 03/02/18 05:30 INR 1.25 (0.83-1.09) H 03/02/18 05:30 IMP: gallstone pancreatitis PLAN:NPO/IVF/MRCP +/- ERCP; US RUQ and lap marcy possible open once pancreatitis resolves and imaging w/u is completed. Montrell Domingo MD FACS
--- NOTE | 2018-03-02 13:00 | PN ---
Teaching Attending Note Name of Resident: Wes Stearns ATTENDING PHYSICIAN STATEMENT I saw and evaluated the patient. I reviewed the resident's note and discussed the case with the resident. I agree with the resident's findings and plan as documented. SUBJECTIVE: No fever or chills . No abd pain, no diarrhea , no BM yesterday OBJECTIVE: NAD, AAox3. CV: RRR no MRG Lungs: CATB Abd: soft, ND, no TTP . nl BS Ext : no edema Assessment/Plan: 82 y/o man with h/o HTN, HLP, and BPH who presented with abd pain and was found to have acute pancreatitis with transaminitis . 1- Acute pancreatitis: likely due to gall stones. LFTS trended down and pain has resolved no evidence of hypertriglyceredemia and US showed thickened gall bladder with stones - cont IVF - cont NPO in case he needs procedure, and pending GI eval - pain control - MRCP pending - surgery input noted and appreciated 2- HTN: cont toprol and ramipril 3- BPH cont to hold off DVT px in case he needs ERCP
--- NOTE | 2018-03-02 15:59 | PN ---
<Wes Stearns - Last Filed: 03/02/18 18:52> Physical Exam: SUBJECTIVE: Patient seen and examined. No acute events overnight. Teleetry strip noted to have HR to 130s. Discussed with Pt.s son Pt.s condition and expected plan for next few days, questions answered to good effect and agreement with everyone on hospital course. OBJECTIVE: Vital Signs Period Temp Pulse Resp BP Sys/Mcbride Pulse Ox Last 24 Hr 98.6 F-99.4 F 67-82 18-20 108-162/53-86 99-99 GENERAL: The patient is awake, alert, and fully oriented, in no acute distress. EYES: sclera anicteric, conjunctiva clear. No ptosis. ENT: Ears normal, nares patent, moist mucous membranes LUNGS: Breath sounds equal, clear to auscultation bilaterally, no wheezes, no crackles, no accessory muscle use. HEART: Regular rate and rhythm, S1, S2 without murmur ABDOMEN: Soft, nontender, nondistended, normoactive bowel sounds, no guarding, no rebound EXTREMITIES: 2+ dorsal pedal pulses, warm, no calf tenderness, well-perfused, no edema. NEUROLOGICAL: Normal speech, gait not observed. PSYCH: Normal mood, normal affect. SKIN: Warm, dry, normal turgor Laboratory Results - last 24 hr 03/02/18 03/02/18 03/02/18 05:30 05:30 05:30 WBC 9.8 RBC 3.98 L Hgb 13.7 Hct 38.8 MCV 97.5 H MCH 34.3 H MCHC 35.2 RDW 13.2 Plt Count 179 MPV 10.7 Absolute Neuts (auto) 8.1 H Neutrophils % 82.4 Lymphocytes % 9.7 D Monocytes % 7.1 Eosinophils % 0.5 Basophils % 0.3 Nucleated RBC % 0 PT with INR INR Sodium 138 Potassium 3.5 Chloride 102 Carbon Dioxide 27 Anion Gap 9 BUN 11 Creatinine 0.7 Creat Clearance w eGFR > 60 Random Glucose 96 Calcium 7.9 L Phosphorus 3.5 Magnesium 1.9 Total Bilirubin 1.8 H Direct Bilirubin 0.4 H Cancelled AST 96 H ALT 153 H Alkaline Phosphatase 96 C-Reactive Protein 6.1 H Cancelled Total Protein 5.5 L Albumin 2.8 L Total Amylase 180 H Cancelled Lipase 313 Cancelled 03/02/18 05:30 WBC RBC Hgb Hct MCV MCH MCHC RDW Plt Count MPV Absolute Neuts (auto) Neutrophils % Lymphocytes % Monocytes % Eosinophils % Basophils % Nucleated RBC % PT with INR 14.80 H INR 1.25 H Sodium Potassium Chloride Carbon Dioxide Anion Gap BUN Creatinine Creat Clearance w eGFR Random Glucose Calcium Phosphorus Magnesium Total Bilirubin Direct Bilirubin AST ALT Alkaline Phosphatase C-Reactive Protein Total Protein Albumin Total Amylase Lipase Active Medications Current Medications Ampicillin Sodium/Sulbactam (Sodium 1.5 gm/ Sodium Chloride) 100 mls @ 200 mls/ hr IVPB Q8H-IV [facility] Last Admin: 03/02/18 10:28 Dose: 200 mls/hr Metronidazole (Flagyl 500mg Premixed Ivpb -) 500 mg in 100 mls @ 100 mls/hr IVPB Q8H-IV [facility] Last Admin: 03/02/18 10:28 Dose: 100 mls/hr Lactated Ringer's (Lactated Ringers Solution) 1,000 mls @ 125 mls/hr IV ASDIR [facility] Last Admin: 03/02/18 10:28 Dose: 125 mls/hr Metoprolol Succinate (Toprol Xl -) 50 mg PO DAILY [facility] Last Admin: 03/02/18 10:28 Dose: 50 mg Morphine Sulfate (Morphine Sulfate) 2 mg IVPUSH Q6H PRN PRN Reason: PAIN LEVEL 1-5 Last Admin: 03/01/18 10:08 Dose: 2 mg Ramipril (Altace -) 5 mg PO DAILY [facility] Last Admin: 03/02/18 10:28 Dose: 5 mg Tamsulosin HCl (Flomax -) 0.8 mg PO HS [facility] Last Admin: 03/01/18 21:46 Dose: 0.8 mg Home Medications Medication Instructions Recorded Ramipril 5 mg PO DAILY 02/03/14 Tamsulosin HCl [Flomax -] 0.8 mg PO HS 08/01/15 Metoprolol Succinate 50 mg PO DAILY 03/01/18 Finasteride [Proscar -] 5 mg PO DAILY 03/02/18 ASSESSMENT/PLAN: An 82 y.o. M w/ PMHx. of HTN, HLD, BPH #Gastroenterology -Acute pancreatitis likely 2/[address]: showed fat stranding consistent with pancretitis Abd US: thick walled gallbladder w/ stones and diffuse fatty infiltrates f/u MRCP in AM surgery on board (Dr. Domingo) CCY tentatively planned for decreased abdominal pain c/w LR @ 125 NPO morphine PRN Lipase > 30k on admission now resolved. -transaminitis likely 2/2 cholecystitis and pancreatitis- resolving Abd US as noted above trend LFTs c/w IVF #Cardiology -HTN c/w Lopressor 50mg c/w ramipril 5mg -HLD Pt. no longer on statins f/u after resolution of pancreatitis if statins should be restarted Trigs wnl #Urology -BPH c/w flomax #F/E/N -LR @ 150ml/hr -monitor electrolytes, replete as needed -NPO #DVTPPx -HSQ <Jayden Thomas - Last Filed: 03/03/18 12:07> Physical Exam: SUBJECTIVE: Patient seen and examined OBJECTIVE: Vital Signs Period Temp Pulse Resp BP Sys/Mcbride Pulse Ox Last 24 Hr 97.8 F-99.8 F 64-78 16-20 112-140/63-80 99 GENERAL: The patient is awake, alert, and fully oriented, in no acute distress. HEAD: Normal with no signs of trauma. EYES: PERRL, extraocular movements intact, sclera anicteric, conjunctiva clear. No ptosis. ENT: Ears normal, nares patent, oropharynx clear without exudates, moist mucous membranes. NECK: Trachea midline, full range of motion, supple. LUNGS: Breath sounds equal, clear to auscultation bilaterally, no wheezes, no crackles, no accessory muscle use. HEART: Regular rate and rhythm, S1, S2 without murmur, rub or gallop. ABDOMEN: Soft, nontender, nondistended, normoactive bowel sounds, no guarding, no rebound, no hepatosplenomegaly, no masses. EXTREMITIES: 2+ pulses, warm, well-perfused, no edema. NEUROLOGICAL: Cranial nerves II through XII grossly intact. Normal speech, gait not observed. PSYCH: Normal mood, normal affect. SKIN: Warm, dry, normal turgor, no rashes or lesions noted Laboratory Results - last 24 hr 03/02/18 03/02/18 03/03/18 05:30 13:00 06:35 WBC RBC Hgb Hct MCV MCH MCHC RDW Plt Count MPV Absolute Neuts (auto) Neutrophils % Lymphocytes % Monocytes % Eosinophils % Basophils % Nucleated RBC % Sodium 139 Potassium 3.5 Chloride 104 Carbon Dioxide 25 Anion Gap 9 BUN 8 Creatinine 0.6 Creat Clearance w eGFR > 60 Random Glucose 86 Calcium 7.8 L Phosphorus 2.5 Magnesium 2.0 Total Bilirubin 1.6 H Direct Bilirubin 0.4 H AST 45 H ALT 99 H Alkaline Phosphatase 80 Total Protein 5.6 L Albumin 2.7 L Lipase Hep B Core IgM Ab Negative Hep C Ab Diagnostic <0.1 Blood Type Antibody Screen 03/03/18 03/03/18 03/03/18 06:35 06:35 08:30 WBC 8.8 RBC 3.97 L Hgb 12.8 Hct 38.4 MCV 96.8 H MCH 32.2 MCHC 33.3 RDW 12.9 Plt Count 166 MPV 10.6 Absolute Neuts (auto) 6.7 Neutrophils % 76.1 Lymphocytes % 13.4 D Monocytes % 8.4 Eosinophils % 1.7 D Basophils % 0.4 Nucleated RBC % 0 Sodium Potassium Chloride Carbon Dioxide Anion Gap BUN Creatinine Creat Clearance w eGFR Random Glucose Calcium Phosphorus Magnesium Total Bilirubin 1.6 H Direct Bilirubin 0.4 H AST 45 H ALT 100 H Alkaline Phosphatase 83 Total Protein 5.6 L Albumin 2.7 L Lipase 183 Hep B Core IgM Ab Hep C Ab Diagnostic Blood Type O POSITIVE Antibody Screen Negative 03/03/18 10:05 WBC RBC Hgb Hct MCV MCH MCHC RDW Plt Count MPV Absolute Neuts (auto) Neutrophils % Lymphocytes % Monocytes % Eosinophils % Basophils % Nucleated RBC % Sodium Potassium Chloride Carbon Dioxide Anion Gap BUN Creatinine Creat Clearance w eGFR Random Glucose Calcium Phosphorus Magnesium Total Bilirubin Direct Bilirubin AST ALT Alkaline Phosphatase Total Protein Albumin Lipase Hep B Core IgM Ab Hep C Ab Diagnostic Blood Type O POSITIVE Antibody Screen Active Medications Current Medications Current Medications Ampicillin Sodium/Sulbactam (Sodium 1.5 gm/ Sodium Chloride) 100 mls @ 200 mls/ hr IVPB Q8H-IV [facility] Last Admin: 03/03/18 10:48 Dose: 200 mls/hr Metronidazole (Flagyl 500mg Premixed Ivpb -) 500 mg in 100 mls @ 100 mls/hr IVPB Q8H-IV [facility] Last Admin: 03/03/18 10:48 Dose: 100 mls/hr Lactated Ringer's (Lactated Ringers Solution) 1,000 mls @ 100 mls/hr IV ASDIR [facility] Last Admin: 03/02/18 21:56 Dose: 100 mls/hr Metoprolol Succinate (Toprol Xl -) 50 mg PO DAILY [facility] Last Admin: 03/03/18 10:00 Dose: 50 mg Morphine Sulfate (Morphine Sulfate) 2 mg IVPUSH Q6H PRN PRN Reason: PAIN LEVEL 1-5 Last Admin: 03/01/18 10:08 Dose: 2 mg Ramipril (Altace -) 5 mg PO DAILY [facility] Last Admin: 03/03/18 10:00 Dose: 5 mg Tamsulosin HCl (Flomax -) 0.8 mg PO [facility] Last Admin: 03/02/18 21:56 Dose: 0.8 mg Home Medications Medication Instructions Recorded Ramipril 5 mg PO DAILY 02/03/14 Tamsulosin HCl [Flomax -] 0.8 mg PO HS 08/01/15 Metoprolol Succinate 50 mg PO DAILY 03/01/18 Finasteride [Proscar -] 5 mg PO DAILY 03/02/18 ASSESSMENT/PLAN:
--- NOTE | 2018-03-02 21:21 | PN ---
GI Progress Note Subjective: GI NOte: Twan is in the MRI machine. His LFTs and lipase have markedly improved suggesting that he has passed the stone. - Objective Vital Signs: Vital Signs Temperature 99.8 F H 03/02/18 19:00 Pulse Rate 66 03/02/18 19:00 Respiratory Rate 16 03/02/18 19:00 Blood Pressure 124/72 03/02/18 19:00 O2 Sat by Pulse Oximetry (%) 99 03/02/18 09:00 Laboratory Tests 02/28/18 03/02/18 21:45 05:30 Total Bilirubin 2.7 H 1.8 H Direct Bilirubin 0.4 H AST 506 H 96 H ALT 334 H 153 H Alkaline Phosphatase 154 H 96 C-Reactive Protein 6.1 H Total Amylase 180 H Lipase > 97716 H 313 Labs: CBC, BMP 03/02/18 05:30 03/02/18 05:30 INR, PTT INR 1.25 (0.83-1.09) H 03/02/18 05:30 Problem List - Problems (1) Acute biliary pancreatitis Assessment/Plan: Clinical picture is consistent with biliary pancreatitis which appears to be reesolving. Will alllow clear liquids but will keep NPO after midnight should the CT reveal a residual CBD stone. Code(s): K85.10 - BILIARY ACUTE PANCREATITIS WITHOUT NECROSIS OR INFECTION (2) Abdominal pain Code(s): R10.9 - UNSPECIFIED ABDOMINAL PAIN (3) Vomiting Code(s): R11.10 - VOMITING, UNSPECIFIED (4) Abnormal liver function tests Code(s): R94.5 - ABNORMAL RESULTS OF LIVER FUNCTION STUDIES
[2018-03-02] MEDS: TAMSULOSIN HCL 0.4 MG CAP PO SCH (21:56)
[2018-03-03] MEDS: AMPICILLIN NA/SULBACTAM NA 1.5 GM in SODIUM CHLORIDE 100 ML IVPB SCH ×3 (03:20→17:39)
[2018-03-03] MEDS ORDERED: AMPICILLIN NA/SULBACTAM NA 1.5 GM VIAL ONE ×3 (03:56→17:33)
[2018-03-03] MEDS ORDERED: SODIUM CHLORIDE 100 ML IVPB ONE ×3 (03:56→17:33)
[2018-03-03 07:38] LABS: BASO % 0.4 % (0-2.0); EOS % 1.7 % (0-4.5); HEMATOCRIT 38.4 % (35.4-49); HEMOGLOBIN 12.8 GM/dL (11.7-16.9); LYMPH % 13.4 % (8-40); MCH 32.2 pg (25.7-33.7); MCHC 33.3 g/dl (32.0-35.9); MEAN CELL VOLUME 96.8 fl (80-96); MEAN PLT VOLUME 10.6 fl (7.5-11.1); MONO % 8.4 % (3.8-10.2); NEUT % 76.1 % (42.8-82.8); PLATELET COUNT 166 K/MM3 (134-434); RBC 3.97 M/mm3 (4.00-5.60); RDW 12.9 % (11.9-15.9); WHITE BLOOD COUNT 8.8 K/mm3 (4.0-10.0)
[2018-03-03] MEDS ORDERED: POTASSIUM CHLORIDE 20 MEQ PREMIX IVPB 100 ML IVPB ONE (07:50)
--- NOTE | 2018-03-03 08:13 | SPA.PREOP ---
- PRE-OP NOTE Dx: Gallstone pancreatitis Planned Procedure: Laparocsopic cholecystectomy Surgeon: Chayo Consent: To be obtained at the bedside after surgeon explains all risks, benefits and alternatives and patient has the opportunity for questions. Last Vital Signs Temp Pulse Resp BP Pulse Ox 98.1 F 74 20 136/80 99 03/03/18 06:00 03/03/18 06:00 03/03/18 06:00 03/03/18 06:00 03/02/18 21:00 Lab Results WBC 8.8 K/mm3 (4.0-10.0) 03/03/18 06:35 RBC 3.97 M/mm3 (4.00-5.60) L 03/03/18 06:35 Hgb 12.8 GM/dL (11.7-16.9) 03/03/18 06:35 Hct 38.4 % (35.4-49) 03/03/18 06:35 MCV 96.8 fl (80-96) H 03/03/18 06:35 MCHC 33.3 g/dl (32.0-35.9) 03/03/18 06:35 RDW 12.9 % (11.9-15.9) 03/03/18 06:35 Plt Count 166 K/MM3 (134-434) 03/03/18 06:35 Sodium 138 mmol/L (136-145) 03/02/18 05:30 Potassium 3.5 mmol/L (3.5-5.1) 03/02/18 05:30 Chloride 102 mmol/L (98-107) 03/02/18 05:30 Carbon Dioxide 27 mmol/L (21-32) 03/02/18 05:30 Anion Gap 9 MMOL/L (8-16) 03/02/18 05:30 BUN 11 mg/dL (7-18) 03/02/18 05:30 Creatinine 0.7 mg/dL (0.55-1.3) 03/02/18 05:30 Random Glucose 96 mg/dL (74-106) 03/02/18 05:30 Calcium 7.9 mg/dL (8.5-10.1) L 03/02/18 05:30 INR 1.25 (0.83-1.09) H 03/02/18 05:30 MRCP: Cholelithiasis with MRI findings suggestive of Cholecystisis , Distal choledocholithiasis, Acute pancreatitis - ASSESSMENT/PLAN Problem List - Problems (1) Gallstone pancreatitis Assessment/Plan: 1. Make NPO after midnight except po meds for OR tomorrow 03/04/18 2. GI/DVT PPX 3. Medical optimization / clearance Code(s): K85.10 - BILIARY ACUTE PANCREATITIS WITHOUT NECROSIS OR INFECTION
[2018-03-03 08:19] LABS: ALBUMIN 2.7 g/dl (3.4-5.0); ALK PHOS 80 U/L (45-117); ANION GAP 9 MMOL/L (8-16); BILIRUBIN,DIRECT 0.4 mg/dL (0.0-0.2); BILIRUBIN,TOTAL 1.6 mg/dL (0.2-1); BLOOD UREA NITROGEN 8 mg/dL (7-18); CALCIUM 7.8 mg/dL (8.5-10.1); CHLORIDE 104 mmol/L (98-107); CO2 25 mmol/L (21-32); CREATININE 0.6 mg/dL (0.55-1.3); GLUCOSE,RANDOM 86 mg/dL (74-106); PHOSPHOROUS 2.5 mg/dL (2.5-4.9); POTASSIUM 3.5 mmol/L (3.5-5.1); SGOT/AST 45 U/L (15-37); SGPT/ALT 99 U/L (13-61); SODIUM 139 mmol/L (136-145); TOT PROT 5.6 g/dl (6.4-8.2)
[2018-03-03 08:21] LABS: ALBUMIN 2.7 g/dl (3.4-5.0); BILIRUBIN,DIRECT 0.4 mg/dL (0.0-0.2); BILIRUBIN,TOTAL 1.6 mg/dL (0.2-1); TOT PROT 5.6 g/dl (6.4-8.2)
[2018-03-03] MEDS: KCL 10 MEQ IVPB 10 MEQ/100 ML INFUS.BAG IVPB SCH ×2 (08:53→10:00)
[2018-03-03] MEDS: RAMIPRIL 5 MG CAPSULE (FP) PO SCH (10:00)
--- NOTE | 2018-03-03 12:09 | PN ---
Teaching Attending Note Name of Resident: Wes Stearns ATTENDING PHYSICIAN STATEMENT I saw and evaluated the patient. I reviewed the resident's note and discussed the case with the resident. I agree with the resident's findings and plan as documented. SUBJECTIVE: No fever or chills No abd pain, no N/V. OBJECTIVE: NAD, AAox3. CV: RRR no MRG Lungs: CATB Abd: soft, ND, no TTP . nl BS Ext: no edema Assessment/Plan: 82 y/o man with h/o HTN, HLP, and BPH who presented with abd pain and was found to have acute pancreatitis with transaminitis . 1- Acute gall stone pancreatitis: - MRI with choledocolithiasis on MRCP. - d/w Dr. Mejia . ERCP today. - NPO - IVF - pain control if needed - CCY is scheduled for tomorrow if no complications after ERCP 2- Acute cholecystitis : seen on MRCP - cont Abx - CCY as above 3- HTN : cont meds HLOC
--- NOTE | 2018-03-03 12:16 | PN ---
Physical Exam: SUBJECTIVE: Patient seen and examined. No acute events overnight. Telemetry strip noted to have HR to 130s. Discussed with Pt.s son Pt.s condition and expected plan for next few days, questions answered to good effect and agreement with everyone on hospital course. OBJECTIVE: Vital Signs Period Temp Pulse Resp BP Sys/Mcbride Pulse Ox Last 24 Hr 98.6 F-99.4 F 67-82 18-20 108-162/53-86 99-99 GENERAL: The patient is awake, alert, and fully oriented, in no acute distress. EYES: sclera anicteric, conjunctiva clear. No ptosis. ENT: Ears normal, nares patent, moist mucous membranes LUNGS: Breath sounds equal, clear to auscultation bilaterally, no wheezes, no crackles, no accessory muscle use. HEART: Regular rate and rhythm, S1, S2 without murmur ABDOMEN: Soft, nontender, nondistended, normoactive bowel sounds, no guarding, no rebound EXTREMITIES: 2+ dorsal pedal pulses, warm, no calf tenderness, well-perfused, no edema. NEUROLOGICAL: Normal speech, gait not observed. PSYCH: Normal mood, normal affect. SKIN: Warm, dry, normal turgo Laboratory Results - last 24 hr 03/02/18 03/02/18 03/03/18 05:30 13:00 06:35 WBC RBC Hgb Hct MCV MCH MCHC RDW Plt Count MPV Absolute Neuts (auto) Neutrophils % Lymphocytes % Monocytes % Eosinophils % Basophils % Nucleated RBC % Sodium 139 Potassium 3.5 Chloride 104 Carbon Dioxide 25 Anion Gap 9 BUN 8 Creatinine 0.6 Creat Clearance w eGFR > 60 Random Glucose 86 Calcium 7.8 L Phosphorus 2.5 Magnesium 2.0 Total Bilirubin 1.6 H Direct Bilirubin 0.4 H AST 45 H ALT 99 H Alkaline Phosphatase 80 Total Protein 5.6 L Albumin 2.7 L Lipase Hep B Core IgM Ab Negative Hep C Ab Diagnostic <0.1 Blood Type Antibody Screen 03/03/18 03/03/18 03/03/18 06:35 06:35 08:30 WBC 8.8 RBC 3.97 L Hgb 12.8 Hct 38.4 MCV 96.8 H MCH 32.2 MCHC 33.3 RDW 12.9 Plt Count 166 MPV 10.6 Absolute Neuts (auto) 6.7 Neutrophils % 76.1 Lymphocytes % 13.4 D Monocytes % 8.4 Eosinophils % 1.7 D Basophils % 0.4 Nucleated RBC % 0 Sodium Potassium Chloride Carbon Dioxide Anion Gap BUN Creatinine Creat Clearance w eGFR Random Glucose Calcium Phosphorus Magnesium Total Bilirubin 1.6 H Direct Bilirubin 0.4 H AST 45 H ALT 100 H Alkaline Phosphatase 83 Total Protein 5.6 L Albumin 2.7 L Lipase 183 Hep B Core IgM Ab Hep C Ab Diagnostic Blood Type O POSITIVE Antibody Screen Negative 03/03/18 10:05 WBC RBC Hgb Hct MCV MCH MCHC RDW Plt Count MPV Absolute Neuts (auto) Neutrophils % Lymphocytes % Monocytes % Eosinophils % Basophils % Nucleated RBC % Sodium Potassium Chloride Carbon Dioxide Anion Gap BUN Creatinine Creat Clearance w eGFR Random Glucose Calcium Phosphorus Magnesium Total Bilirubin Direct Bilirubin AST ALT Alkaline Phosphatase Total Protein Albumin Lipase Hep B Core IgM Ab Hep C Ab Diagnostic Blood Type O POSITIVE Antibody Screen Active Medications Current Medications Ampicillin Sodium/Sulbactam (Sodium 1.5 gm/ Sodium Chloride) 100 mls @ 200 mls/ hr IVPB Q8H-IV [facility] Last Admin: 03/03/18 10:48 Dose: 200 mls/hr Metronidazole (Flagyl 500mg Premixed Ivpb -) 500 mg in 100 mls @ 100 mls/hr IVPB Q8H-IV [facility] Last Admin: 03/03/18 10:48 Dose: 100 mls/hr Lactated Ringer's (Lactated Ringers Solution) 1,000 mls @ 100 mls/hr IV ASDIR [facility] Last Admin: 03/02/18 21:56 Dose: 100 mls/hr Metoprolol Succinate (Toprol Xl -) 50 mg PO DAILY [facility] Last Admin: 03/03/18 10:00 Dose: 50 mg Morphine Sulfate (Morphine Sulfate) 2 mg IVPUSH Q6H PRN PRN Reason: PAIN LEVEL 1-5 Last Admin: 03/01/18 10:08 Dose: 2 mg Ramipril (Altace -) 5 mg PO DAILY [facility] Last Admin: 03/03/18 10:00 Dose: 5 mg Tamsulosin HCl (Flomax -) 0.8 mg PO HS [facility] Last Admin: 03/02/18 21:56 Dose: 0.8 mg ASSESSMENT/PLAN: An 82 y.o. M w/ PMHx. of HTN, HLD, BPH, present to the ED with abdominal pain, nausea and vomiting, admitted for acute pancreatitis 2/2 cholecystitis #Gastroenterology -Acute pancreatitis likely 2/[address]: showed fat stranding consistent with pancretitis Abd US: thick walled gallbladder w/ stones and diffuse fatty liver infiltrates f/u MRCP in AM surgery on board (Dr. Domingo) CCY tentatively planned for decreased abdominal pain c/w LR @ 125 NPO morphine PRN Lipase > 30k on admission now resolved. -Transaminitis likely 2/2 cholecystitis and pancreatitis- resolving Abd US as noted above trend LFTs c/w IVF #Cardiology -HTN c/w Lopressor 50mg c/w ramipril 5mg -HLD Pt. no longer on statins f/u after resolution of pancreatitis if statins should be restarted Trigs wnl #Urology -BPH c/w flomax #F/E/N -LR @ 150ml/hr -monitor electrolytes, replete as needed -NPO #DVTPPx -HSQ Visit type - Emergency Visit Emergency Visit: Yes ED Registration Date: 02/28/18 Care time: The patient presented to the Emergency Department on the above date and was hospitalized for further evaluation of their emergent condition. - New Patient This patient is new to me today: Yes Date on this admission: 03/02/18 - Critical Care Critical Care patient: No - Discharge Referral Referred to [facility] No
--- NOTE | 2018-03-03 12:21 | PN ---
Physical Exam: SUBJECTIVE: Patient seen and examined. No acute events overnight. Pt. endorses passing gas, good urine output and appetite. Pt. denies SOB, abdominal pain, palpitations, nausea or passing stool at this time. OBJECTIVE: Vital Signs Period Temp Pulse Resp BP Sys/Mcbride Pulse Ox Last 24 Hr 97.8 F-99.8 F 64-78 16-20 112-140/63-80 99 GENERAL: The patient is awake, alert, and fully oriented, in no acute distress. EYES: sclera anicteric, conjunctiva clear. No ptosis. ENT: Ears normal, nares patent, moist mucous membranes LUNGS: Breath sounds equal, clear to auscultation bilaterally, no wheezes, no crackles, no accessory muscle use. HEART: Regular rate and rhythm, S1, S2 without murmur ABDOMEN: Soft, nontender, nondistended, normoactive bowel sounds, no guarding, no rebound EXTREMITIES: 2+ dorsal pedal pulses, warm, no calf tenderness, well-perfused, no edema. NEUROLOGICAL: Normal speech, gait not observed. PSYCH: Normal mood, normal affect. SKIN: Warm, dry, normal turgo Laboratory Results - last 24 hr 03/02/18 03/02/18 03/03/18 05:30 13:00 06:35 WBC RBC Hgb Hct MCV MCH MCHC RDW Plt Count MPV Absolute Neuts (auto) Neutrophils % Lymphocytes % Monocytes % Eosinophils % Basophils % Nucleated RBC % Sodium 139 Potassium 3.5 Chloride 104 Carbon Dioxide 25 Anion Gap 9 BUN 8 Creatinine 0.6 Creat Clearance w eGFR > 60 Random Glucose 86 Calcium 7.8 L Phosphorus 2.5 Magnesium 2.0 Total Bilirubin 1.6 H Direct Bilirubin 0.4 H AST 45 H ALT 99 H Alkaline Phosphatase 80 Total Protein 5.6 L Albumin 2.7 L Lipase Hep B Core IgM Ab Negative Hep C Ab Diagnostic <0.1 Blood Type Antibody Screen 03/03/18 03/03/18 03/03/18 06:35 06:35 08:30 WBC 8.8 RBC 3.97 L Hgb 12.8 Hct 38.4 MCV 96.8 H MCH 32.2 MCHC 33.3 RDW 12.9 Plt Count 166 MPV 10.6 Absolute Neuts (auto) 6.7 Neutrophils % 76.1 Lymphocytes % 13.4 D Monocytes % 8.4 Eosinophils % 1.7 D Basophils % 0.4 Nucleated RBC % 0 Sodium Potassium Chloride Carbon Dioxide Anion Gap BUN Creatinine Creat Clearance w eGFR Random Glucose Calcium Phosphorus Magnesium Total Bilirubin 1.6 H Direct Bilirubin 0.4 H AST 45 H ALT 100 H Alkaline Phosphatase 83 Total Protein 5.6 L Albumin 2.7 L Lipase 183 Hep B Core IgM Ab Hep C Ab Diagnostic Blood Type O POSITIVE Antibody Screen Negative 03/03/18 10:05 WBC RBC Hgb Hct MCV MCH MCHC RDW Plt Count MPV Absolute Neuts (auto) Neutrophils % Lymphocytes % Monocytes % Eosinophils % Basophils % Nucleated RBC % Sodium Potassium Chloride Carbon Dioxide Anion Gap BUN Creatinine Creat Clearance w eGFR Random Glucose Calcium Phosphorus Magnesium Total Bilirubin Direct Bilirubin AST ALT Alkaline Phosphatase Total Protein Albumin Lipase Hep B Core IgM Ab Hep C Ab Diagnostic Blood Type O POSITIVE Antibody Screen Active Medications ASSESSMENT/PLAN: An 82 y.o. M w/ PMHx. of HTN, HLD, BPH, present to the ED with abdominal pain, nausea and vomiting, admitted for acute pancreatitis 2/2 cholecystitis #Gastroenterology -Acute pancreatitis likely 2/[address]: showed fat stranding consistent with pancreatitis Abd US: thick walled gallbladder w/ stones and diffuse fatty liver infiltrates MRCP: cholelithiasis, distal choledocolithiasis, 8mm pancreatic tail lipoma, acute pancreatitis w/o ductal involvement or necrosis, trace b/l pleural effusions, f/u MRI in 1 year. surgery on board (Dr. Domingo) CCY tentatively planned for tomorrow ERCP: removed fragments of stones, s/p sphincterotomy decreased abdominal pain c/w LR @ 125 NPO morphine PRN Lipase > 30k on admission now resolved. -Transaminitis likely 2/2 cholecystitis and pancreatitis- resolving Abd US as noted above trend LFTs c/w IVF #Cardiology -HTN c/w Lopressor 50mg c/w Ramipril 5mg -HLD Pt. no longer on statins f/u after resolution of pancreatitis if statins should be restarted Trigs wnl #Urology -BPH c/w flomax #F/E/N -LR @ 150ml/hr -monitor electrolytes, replete as needed -NPO after midnight #PPx -DVT d/c Hep SQ for CCY tomorrow -GI Protonix 40mg Visit type - Emergency Visit Emergency Visit: Yes ED Registration Date: 02/28/18 Care time: The patient presented to the Emergency Department on the above date and was hospitalized for further evaluation of their emergent condition. - New Patient This patient is new to me today: No - Critical Care Critical Care patient: No - Discharge Referral Referred to [facility] No
[2018-03-03] MEDS ORDERED: ONDANSETRON 4 MG/2 ML VIAL IVPUSH PRN (14:26)
[2018-03-03] MEDS ORDERED: PROMETHAZINE HCL 25 MG/1 ML VIAL IVPUSH PRN (14:26)
[2018-03-03] MEDS ORDERED: LACTATED RINGERS SOLUTION 1,000 ML IV SCH (14:30)
[2018-03-03] MEDS ORDERED: IOHEXOL 300 MG/ML INFUS..BTL IV ONE (15:19)
--- NOTE | 2018-03-03 16:20 | PN ---
Progress Note (short form) - Note Progress Note: GI Procedure NOte: Please see ERCP report. Stone fragments removed after a sphincterotomy was created. Communicated with Dr. Domingo and spoke with son Herbert who is present. Plans is to proceed with richardson sena tomorrow. Problem List - Problems (1) Acute biliary pancreatitis Code(s): K85.10 - BILIARY ACUTE PANCREATITIS WITHOUT NECROSIS OR INFECTION (2) Abdominal pain Code(s): R10.9 - UNSPECIFIED ABDOMINAL PAIN (3) Vomiting Code(s): R11.10 - VOMITING, UNSPECIFIED (4) Abnormal liver function tests Code(s): R94.5 - ABNORMAL RESULTS OF LIVER FUNCTION STUDIES
[2018-03-03] MEDS ORDERED: LACTATED RINGERS SOLUTION 1,000 ML/1,000 ML INFUS.BAG IV SCH ×2 (16:30→22:30)
[2018-03-03] MEDS: PANTOPRAZOLE SODIUM 40 MG VIAL IVPUSH SCH (18:55)
[2018-03-03] MEDS: MORPHINE SULFATE 2 MG/ML VIAL IVPUSH PRN (20:09)
[2018-03-03] MEDS: TAMSULOSIN HCL 0.4 MG CAP PO SCH (21:21)
[2018-03-04 00:12] LABS: HBSAG SCREEN Negative (Negative); HEP A AB, IGM Negative (Negative); HEP B CORE AB, TOT Negative (Negative)
[2018-03-04] MEDS ORDERED: AMPICILLIN NA/SULBACTAM NA 1.5 GM VIAL ONE ×3 (01:22→17:33)
[2018-03-04] MEDS ORDERED: SODIUM CHLORIDE 100 ML IVPB ONE ×3 (01:22→17:34)
[2018-03-04] MEDS: AMPICILLIN NA/SULBACTAM NA 1.5 GM in SODIUM CHLORIDE 100 ML IVPB SCH ×3 (02:45→17:37)
--- NOTE | 2018-03-04 04:10 | PN ---
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 Subjective: Patient admits pain in upper left chest radiating inferiorly to left sided abdomen. Began one hour prior, without clear inciting factor. Physical exam: General: Patient noted to be laying supine in exam bed, comfortably in no acute distress. HEENT: PERRLA, EOMI, no nystagmus, no scleral icterus, no conjunctival injection PULMONARY: Lungs clear to auscultation b/l. No accessory muscles of respiration used. No wheezes, no rhonchi CARDIAC: +S1, S2 auscultated without murmur, rub, gallop. CHEST: Pain reproducible upon palpation of left upper chest. ABDOMINAL: Soft, distended. Diffusely tender to palpation, worst at left upper quadrant abdomen. No guarding, no rebound tenderness. No hepatospelnomegaly EXTREMITIES: Radial and dorsalis pedis pulses 2+ b/l. No lower extremity edema b /l. NEURO: Strength 5/5 b/l upper and lower extremities. CN II-XII intact. Assessment and Plan: Pain is reproducible upon palpation. New onset, atypical chest pain, radiating to left sided abdomen. Likely secondary to acute pancreatitis, cholecystitis EKG STAT Troponin STAT Morphine 2mg IV for pain Patient receiving IV lactated ringer's at 125mL/ hour
[2018-03-04 06:29] LABS: BASO % 0.1 % (0-2.0); EOS % 0.2 % (0-4.5); HEMATOCRIT 38.5 % (35.4-49); HEMOGLOBIN 13.7 GM/dL (11.7-16.9); LYMPH % 4.5 % (8-40); MCH 34.5 pg (25.7-33.7); MCHC 35.5 g/dl (32.0-35.9); MEAN CELL VOLUME 97.2 fl (80-96); MONO % 5.5 % (3.8-10.2); NEUT % 89.7 % (42.8-82.8); PLATELET COUNT 172 K/MM3 (134-434); RBC 3.96 M/mm3 (4.00-5.60); RDW 13.1 % (11.9-15.9)
[2018-03-04 07:30] LABS: ALBUMIN 2.6 g/dl (3.4-5.0); ALK PHOS 319 U/L (45-117); AMYLASE 38 U/L (25-115); ANION GAP 11 MMOL/L (8-16); BILIRUBIN,DIRECT 3.5 mg/dL (0.0-0.2); BILIRUBIN,TOTAL 5.7 mg/dL (0.2-1); BLOOD UREA NITROGEN 6 mg/dL (7-18); CALCIUM 7.9 mg/dL (8.5-10.1); CHLORIDE 99 mmol/L (98-107); CO2 26 mmol/L (21-32); CREATININE 0.7 mg/dL (0.55-1.3); GLUCOSE,RANDOM 113 mg/dL (74-106); LIPASE 117 U/L (73-393); MAGNESIUM 1.8 mg/dL (1.8-2.4); PHOSPHOROUS 3.4 mg/dL (2.5-4.9); POTASSIUM 3.9 mmol/L (3.5-5.1); SGOT/AST 150 U/L (15-37); SGPT/ALT 127 U/L (13-61); SODIUM 136 mmol/L (136-145); TOT PROT 5.4 g/dl (6.4-8.2)
--- NOTE | 2018-03-04 08:15 | PN ---
Teaching Attending Note Name of Resident: Wes Stearns ATTENDING PHYSICIAN STATEMENT I saw and evaluated the patient. I reviewed the resident's note and discussed the case with the resident. I agree with the resident's findings and plan as documented. SUBJECTIVE: Patient is comfortable with no acute distress, no shortness of breath. Going for ERCP today with OBJECTIVE: Vital Signs Temperature 100.3 F H 03/04/18 05:52 Pulse Rate 84 03/04/18 05:52 Respiratory Rate 20 03/04/18 05:52 Blood Pressure 137/84 03/04/18 05:52 O2 Sat by Pulse Oximetry (%) 95 03/03/18 21:00 GENERAL: The patient is awake, alert, and fully oriented, in no acute distress. EYES: sclera anicteric, conjunctiva clear. ENT: Ears normal, moist mucous membranes LUNGS: Breath sounds equal, clear to auscultation bilaterally, no wheezes, no crackles, no accessory muscle use. HEART: Regular rate and rhythm, S1, S2 without murmur ABDOMEN: Soft, nontender, nondistended, normoactive bowel sounds, no guarding, no rebound EXTREMITIES: 2+ dorsal pedal pulses, warm, no calf tenderness, well-perfused, no edema. NEUROLOGICAL: Normal speech, gait not observed. PSYCH: Normal mood, normal affect. SKIN: Warm, dry, normal turgo CBCD WBC 12.0 K/mm3 (4.0-10.0) H 03/04/18 05:30 RBC 3.96 M/mm3 (4.00-5.60) L 03/04/18 05:30 Hgb 13.7 GM/dL (11.7-16.9) 03/04/18 05:30 Hct 38.5 % (35.4-49) 03/04/18 05:30 MCV 97.2 fl (80-96) H 03/04/18 05:30 MCHC 35.5 g/dl (32.0-35.9) 03/04/18 05:30 RDW 13.1 % (11.9-15.9) 03/04/18 05:30 Plt Count 172 K/MM3 (134-434) 03/04/18 05:30 MPV 11.0 fl (7.5-11.1) 03/04/18 05:30 CMP Sodium 136 mmol/L (136-145) 03/04/18 05:30 Potassium 3.9 mmol/L (3.5-5.1) 03/04/18 05:30 Chloride 99 mmol/L (98-107) 03/04/18 05:30 Carbon Dioxide 26 mmol/L (21-32) 03/04/18 05:30 Anion Gap 11 MMOL/L (8-16) 03/04/18 05:30 BUN 6 mg/dL (7-18) L 03/04/18 05:30 Creatinine 0.7 mg/dL (0.55-1.3) 03/04/18 05:30 Creat Clearance w eGFR > 60 (>60) 03/04/18 05:30 Random Glucose 113 mg/dL (74-106) H 03/04/18 05:30 Calcium 7.9 mg/dL (8.5-10.1) L 03/04/18 05:30 Total Bilirubin 5.7 mg/dL (0.2-1) H 03/04/18 05:30 AST 150 U/L (15-37) H 03/04/18 05:30 ALT 127 U/L (13-61) H 03/04/18 05:30 Alkaline Phosphatase 319 U/L (45-117) H 03/04/18 05:30 Total Protein 5.4 g/dl (6.4-8.2) L 03/04/18 05:30 Albumin 2.6 g/dl (3.4-5.0) L 03/04/18 05:30 CARDIAC ENZYMES Creatine Kinase 78 IU/L (26-308) 02/28/18 21:45 Troponin I < 0.02 ng/ml (0.00-0.05) 03/03/18 20:15 Current Medications Generic Name Dose Route Start Last Admin Trade Name Freq PRN Reason Stop Dose Admin Fentanyl 50 mcg 03/03/18 14:26 Sublimaze Injection - IVPUSH [id number] PRN PAIN-PACU ORDER X 4 DOSES ONLY Ampicillin Sodium/Sulbactam 100 mls @ 200 mls/hr 03/01/18 18:00 03/04/18 02: 45 Sodium 1.5 gm/ Sodium Chloride IVPB 200 mls/hr Q8H-IV [facility] Administration Metronidazole 500 mg in 100 mls @ 100 mls/hr 03/01/18 18:00 03/04/18 03:30 Flagyl 500mg Premixed Ivpb - IVPB 100 mls/hr Q8H-IV [facility] Administration Metoprolol Succinate 50 mg 03/02/18 10:00 03/03/18 10:00 Toprol Xl - PO 50 mg DAILY [facility] Administration Ondansetron HCl 4 mg 03/03/18 14:26 Zofran Injection IVPUSH Q6H PRN NAUSEA AND/OR VOMITING Pantoprazole Sodium 40 mg 03/03/18 17:30 03/03/18 18:55 Protonix Iv IVPUSH 40 mg DAILY [facility] Administration Promethazine HCl 12.5 mg 03/03/18 14:26 Phenergan Injection - IVPUSH Q6H PRN NAUSEA-FOR RESCUE AFTER 15 MIN Ramipril 5 mg 03/01/18 10:00 03/03/18 10:00 Altace - PO 5 mg DAILY [facility] Administration Tamsulosin HCl 0.8 mg 03/01/18 22:00 03/03/18 21:21 Flomax - PO 0.8 mg HS [facility] Administration Home Medications Medication Instructions Recorded Ramipril 5 mg PO DAILY 02/03/14 Tamsulosin HCl [Flomax -] 0.8 mg PO HS 08/01/15 Metoprolol Succinate 50 mg PO DAILY 03/01/18 Finasteride [Proscar -] 5 mg PO DAILY 03/02/18 Microbiology 03/01/18 15:20 Blood - Peripheral Venous Blood Culture - Preliminary NO GROWTH OBTAINED AFTER 48 HOURS, INCUBATION TO CONTINUE FOR 3 DAYS. 03/01/18 15:15 Blood - Peripheral Venous Blood Culture - Preliminary NO GROWTH OBTAINED AFTER 48 HOURS, INCUBATION TO CONTINUE FOR 3 DAYS. ASSESSMENT AND PLAN: Patient is a 82 y/o man with h/o HTN, HLP, and BPH who presented with abdominal pain and was found to have acute pancreatitis with transaminitis . # Acute gallstone pancreatitis: MRCP positive for choledocolithiasis , patient is scheduled to have ERCP done by Dr. Mejia . continue NPO , IVF , pain control if needed , CCY is scheduled for tomorrow if no complications after ERCP # Acute cholecystitis : seen on MRCP; cont Abx , CCY as above # HTN : cont meds DVT Px: SCDs
--- NOTE | 2018-03-04 08:38 | PN ---
Physical Exam: SUBJECTIVE: Patient seen and examined. Pt. complained of left chest pain radiating to left abdomen overnight that was reproducible on palpation. Pt. was nauseous. EKG and Troponins taken at the time were negative. Pt. given 2mg Morphine to good effect. Pt. no longer complaining of nausea or pain anywhere. Denies fever, or abdominal pain this morning. Surgery cancelled for today. Pt. NPO for CCY tomorrow. OBJECTIVE: Vital Signs Period Temp Pulse Resp BP Sys/Mcbride Pulse Ox Last 24 Hr 97.6 F-100.3 F 68-99 18-20 122-156/20-86 95-99 GENERAL: The patient is awake, alert, and fully oriented, in no acute distress. EYES: Sclera anicteric, conjunctiva clear. No ptosis. ENT: Ears normal, nares patent, moist mucous membranes. LUNGS: Breath sounds equal, clear to auscultation bilaterally, no wheezes, no crackles, no accessory muscle use. HEART: Iregular rate and rhythm, S1, S2 with click? ABDOMEN: Soft, nontender, nondistended, normoactive bowel sounds, no guarding, no rebound EXTREMITIES: 2+ dorsal pedal pulses, no calf tenderness, warm, well-perfused, no edema. NEUROLOGICAL: Normal speech, gait not observed. PSYCH: Normal mood, normal affect. SKIN: Warm, dry, normal turgor Laboratory Results - last 24 hr 03/02/18 03/03/18 03/03/18 05:30 08:30 10:05 WBC RBC Hgb Hct MCV MCH MCHC RDW Plt Count MPV Absolute Neuts (auto) Neutrophils % Lymphocytes % Monocytes % Eosinophils % Basophils % Nucleated RBC % Sodium Potassium Chloride Carbon Dioxide Anion Gap BUN Creatinine Creat Clearance w eGFR Random Glucose Calcium Phosphorus Magnesium Total Bilirubin Direct Bilirubin AST ALT Alkaline Phosphatase Troponin I C-Reactive Protein Total Protein Albumin Total Amylase Lipase Hep A IgM Ab Confirm Negative Hepatitis A Ab Total Positive H Hep Bs Antigen Negative Hep Bs Antibody Non reactive Hep B Core Total Ab Negative Blood Type O POSITIVE O POSITIVE Antibody Screen Negative 03/03/18 03/04/18 03/04/18 20:15 05:30 05:30 WBC 12.0 H RBC 3.96 L Hgb 13.7 Hct 38.5 MCV 97.2 H MCH 34.5 H MCHC 35.5 RDW 13.1 Plt Count 172 MPV 11.0 Absolute Neuts (auto) 10.7 H Neutrophils % 89.7 H Lymphocytes % 4.5 L D Monocytes % 5.5 Eosinophils % 0.2 D Basophils % 0.1 Nucleated RBC % 0 Sodium 136 Potassium 3.9 Chloride 99 Carbon Dioxide 26 Anion Gap 11 BUN 6 L Creatinine 0.7 Creat Clearance w eGFR > 60 Random Glucose 113 H Calcium 7.9 L Phosphorus 3.4 Magnesium 1.8 Total Bilirubin 5.7 H Direct Bilirubin 3.5 H AST 150 H ALT 127 H Alkaline Phosphatase 319 H Troponin I < 0.02 C-Reactive Protein 9.6 H Total Protein 5.4 L Albumin 2.6 L Total Amylase 38 Lipase 117 Hep A IgM Ab Confirm Hepatitis A Ab Total Hep Bs Antigen Hep Bs Antibody Hep B Core Total Ab Blood Type Antibody Screen Active Medications Current Medications Fentanyl (Sublimaze Injection -) 50 mcg IVPUSH [id number] PRN PRN Reason: PAIN-PACU ORDER X 4 DOSES ONLY Finasteride (Proscar -) 5 mg PO DAILY [facility] Ampicillin Sodium/Sulbactam (Sodium 1.5 gm/ Sodium Chloride) 100 mls @ 200 mls/ hr IVPB Q8H-IV [facility] Last Admin: 03/04/18 11:29 Dose: 200 mls/hr Metronidazole (Flagyl 500mg Premixed Ivpb -) 500 mg in 100 mls @ 100 mls/hr IVPB Q8H-IV [facility] Last Admin: 03/04/18 11:29 Dose: 100 mls/hr Metoprolol Succinate (Toprol Xl -) 50 mg PO DAILY [facility] Ondansetron HCl (Zofran Injection) 4 mg IVPUSH Q6H PRN PRN Reason: NAUSEA AND/OR VOMITING Pantoprazole Sodium (Protonix Iv) 40 mg IVPUSH DAILY [facility] Last Admin: 03/04/18 11:46 Dose: 40 mg Promethazine HCl (Phenergan Injection -) 12.5 mg IVPUSH Q6H PRN PRN Reason: NAUSEA-FOR RESCUE AFTER 15 MIN Ramipril (Altace -) 5 mg PO DAILY [facility] Last Admin: 03/04/18 11:30 Dose: 5 mg Home Medications Medication Instructions Recorded Ramipril 5 mg PO DAILY 02/03/14 Tamsulosin HCl [Flomax -] 0.8 mg PO 08/01/15 Metoprolol Succinate 50 mg PO DAILY 03/01/18 Finasteride [Proscar -] 5 mg PO DAILY 03/02/18 ASSESSMENT/PLAN: An 82 y.o. M w/ PMHx. of HTN, HLD, BPH, present to the ED with abdominal pain, nausea and vomiting, admitted for acute pancreatitis 2/2 cholecystitis #Gastroenterology -Acute pancreatitis likely 2/[address]: showed fat stranding consistent with pancreatitis Abd US: thick walled gallbladder w/ stones and diffuse fatty liver infiltrates MRCP: cholelithiasis, distal choledocolithiasis, 8mm pancreatic tail lipoma, acute pancreatitis w/o ductal involvement or necrosis, trace b/l pleural effusions, f/u MRI in 1 year. surgery on board (Dr. Domingo) CCY cancelled d/t uptrending LFTs and total Bilirubin. 2nd ERCP done emergently d/t concerns of developing cholangitis 1st ERCP: removed fragments of stones, s/p sphincterotomy; On Rpt. ERCP: 2 stones found that had moved from GB, 1 was in the CBD- removed, 1 in the left hepatic duct was unable to be removed, therefore stent (7 FR-4 cm length) was placed. decreased abdominal pain c/w LR @ 125 NPO afer midnight morphine PRN Lipase > 30k on admission now resolved. -Transaminitis likely 2/2 cholecystitis and pancreatitis LFTs and bilirubin up trending s/p ERCP trend LFTs Abd US as noted above c/w IVF #Cardiology -HTN c/w Lopressor 50mg c/w Ramipril 5mg -HLD Pt. no longer on statins f/u after resolution of pancreatitis if statins should be restarted Trigs wnl #Urology -BPH d/c flomax resumed Finasteride 5mg #F/E/N -LR @ 150ml/hr -monitor electrolytes, replete as needed -NPO after midnight, clear liquids this evening. #PPx -DVT d/c Hep SQ for CCY tomorrow -GI Protonix 40mg Visit type - Emergency Visit Emergency Visit: Yes ED Registration Date: 02/28/18 Care time: The patient presented to the Emergency Department on the above date and was hospitalized for further evaluation of their emergent condition. - New Patient This patient is new to me today: No - Critical Care Critical Care patient: No - Discharge Referral Referred to [facility] No
--- NOTE | 2018-03-04 09:56 | EKG ---
Test Reason : Blood Pressure : / mmHG Vent. Rate : 068 BPM Atrial Rate : 068 BPM P-R Int : 198 ms QRS Dur : 088 ms QT Int : 424 ms P-R-T Axes : 033 -20 004 degrees QTc Int : 450 ms SINUS RHYTHM WITH PREMATURE SUPRAVENTRICULAR COMPLEXES MINIMAL VOLTAGE CRITERIA FOR LVH, MAY BE NORMAL VARIANT BORDERLINE ECG WHEN COMPARED WITH ECG OF 28-FEB-2018 22:39, PREMATURE VENTRICULAR COMPLEXES ARE NO LONGER PRESENT Confirmed by ANNETTE SHEPHERD, SIXTO ([id number]) on 03/04/2018 9:55:59 AM Referred By: Confirmed By:SIXTO BRYANT MD
[2018-03-04] MEDS: RAMIPRIL 5 MG CAPSULE (FP) PO SCH (11:30)
[2018-03-04] MEDS: PANTOPRAZOLE SODIUM 40 MG VIAL IVPUSH SCH (11:46)
--- NOTE | 2018-03-04 13:08 | PN ---
Progress Note (short form) - Note Progress Note: Attending Surgeon OR for today cancelled given elevated bili and low grade temp post ERCP/ sphincterotomy; case d/w Dr. Mejia and will plan on possible lap marcy tomorrow. Montrell Domingo MD FACS
--- NOTE | 2018-03-04 14:02 | PN ---
Progress Note (short form) - Note Progress Note: GI Procedure: Please see ERCP report. When the jaundice was discovered consent was obtained from Twan for a repeat ERCP. I also informed his son Herbert. Two stones were found to have passes from the GB into the common bile duct and the left hepatic duct. The CBD stone was extracted but the left hepatic duct could not be accessed so a 7FR x 4cm length double pigtail stent was advanced into the right hepatic duct. Post stenting fluoroscopy revealed that both lobes of the liver drained completely. Problem List - Problems (1) Acute biliary pancreatitis Code(s): K85.10 - BILIARY ACUTE PANCREATITIS WITHOUT NECROSIS OR INFECTION (2) Abdominal pain Code(s): R10.9 - UNSPECIFIED ABDOMINAL PAIN (3) Vomiting Code(s): R11.10 - VOMITING, UNSPECIFIED (4) Abnormal liver function tests Code(s): R94.5 - ABNORMAL RESULTS OF LIVER FUNCTION STUDIES
[2018-03-04] MEDS ORDERED: LACTATED RINGERS SOLUTION 1,000 ML/1,000 ML INFUS.BAG IV SCH (14:15)
--- NOTE | 2018-03-04 14:15 | SPA.PREOP ---
- PRE-OP NOTE Dx: Gallstone pancreatitis Planned Procedure: Laparoscopic cholecystectomy Surgeon: Dr. Montrell Domingo Consent: Obtained after surgeon explained all risks, benefits and alternatives. Opportunity for questions. Patient had none. Understood and signed without reservation. Last Vital Signs Temp Pulse Resp BP Pulse Ox 100.9 F H 83 20 125/78 95 03/04/18 10:00 03/04/18 10:00 03/04/18 10:00 03/04/18 10:00 03/04/18 09:00 Lab Results WBC 12.0 K/mm3 (4.0-10.0) H 03/04/18 05:30 RBC 3.96 M/mm3 (4.00-5.60) L 03/04/18 05:30 Hgb 13.7 GM/dL (11.7-16.9) 03/04/18 05:30 Hct 38.5 % (35.4-49) 03/04/18 05:30 MCV 97.2 fl (80-96) H 03/04/18 05:30 MCHC 35.5 g/dl (32.0-35.9) 03/04/18 05:30 RDW 13.1 % (11.9-15.9) 03/04/18 05:30 Plt Count 172 K/MM3 (134-434) 03/04/18 05:30 Sodium 136 mmol/L (136-145) 03/04/18 05:30 Potassium 3.9 mmol/L (3.5-5.1) 03/04/18 05:30 Chloride 99 mmol/L (98-107) 03/04/18 05:30 Carbon Dioxide 26 mmol/L (21-32) 03/04/18 05:30 Anion Gap 11 MMOL/L (8-16) 03/04/18 05:30 BUN 6 mg/dL (7-18) L 03/04/18 05:30 Creatinine 0.7 mg/dL (0.55-1.3) 03/04/18 05:30 Random Glucose 113 mg/dL (74-106) H 03/04/18 05:30 Calcium 7.9 mg/dL (8.5-10.1) L 03/04/18 05:30 Blood Type O POSITIVE 03/03/18 10:05 Antibody Screen Negative 03/03/18 08:30 INR 1.25 (0.83-1.09) H 03/02/18 05:30 S/P repeat ERCP 03/04/18 CBD stone extraction, placement of 7FR x 4cm length double pigtail stent into right hepatic duct. A/P: 82 y.o. M w/ PMHx. HTN, HLD, BPH, admitted 02/28 after presenting with abdominal pain, nausea and vomiting, found to have acute pancreatitis 2/2 cholecystitis. Now S/P ERCP (03/03) w/ removal of stone fragments and sphincterotomy, OR cancelled 03/04 for uptrending LFTS/total Bilirubin, now s/p repeat ERCP (03/04) w/ CBD stone extraction, stent placement, planned for Laparoscopic cholecystectomy on 03/[address] Domingo. -NPO after midnight -Repeat cxr ordered (prior done 02/28 with atelectasis/early infiltrate) -Labs ordered (cbc, bmp, type and screen, coags, lfts, amylase/lipase) for AM -Consent per attending - IMAGING EKG: Report Reviewed (EKG 03/04 Sincus tachycardia with premature supraventicular complexes.) - ASSESSMENT/PLAN 1. Make NPO after midnight except po meds 2. GI/DVT PPX 3. Medical optimization / clearance
[2018-03-04] MEDS ORDERED: MORPHINE SULFATE 2 MG/ML VIAL IVPUSH ONE ×2 (16:39→21:19)
[2018-03-04] MEDS ORDERED: ONDANSETRON 4 MG/2 ML VIAL IVPUSH PRN (18:44)
[2018-03-04] MEDS ORDERED: PROMETHAZINE HCL 25 MG/1 ML VIAL IVPUSH PRN (18:44)
[2018-03-04] MEDS ORDERED: PROMETHAZINE HCL 25 MG/1 ML VIAL IVPB PRN (18:47)
[2018-03-04] MEDS: LACTATED RINGERS SOLUTION 1,000 ML/1,000 ML INFUS.BAG IV SCH (23:52)
[2018-03-05] MEDS ORDERED: AMPICILLIN NA/SULBACTAM NA 1.5 GM VIAL ONE ×3 (01:23→16:39)
[2018-03-05] MEDS ORDERED: SODIUM CHLORIDE 100 ML IVPB ONE ×3 (01:23→16:39)
[2018-03-05] MEDS: AMPICILLIN NA/SULBACTAM NA 1.5 GM in SODIUM CHLORIDE 100 ML IVPB SCH ×3 (02:47→17:12)
[2018-03-05 07:38] LABS: BASO % 0.3 % (0-2.0); EOS % 2.4 % (0-4.5); HEMATOCRIT 38.6 % (35.4-49); HEMOGLOBIN 12.9 GM/dL (11.7-16.9); LYMPH % 6.2 % (8-40); MCH 32.5 pg (25.7-33.7); MCHC 33.5 g/dl (32.0-35.9); MEAN CELL VOLUME 97.1 fl (80-96); MEAN PLT VOLUME 11.4 fl (7.5-11.1); MONO % 7.5 % (3.8-10.2); NEUT % 83.6 % (42.8-82.8); PLATELET COUNT 159 K/MM3 (134-434); RBC 3.97 M/mm3 (4.00-5.60); RDW 12.7 % (11.9-15.9)
[2018-03-05 08:27] LABS: ALBUMIN 2.5 g/dl (3.4-5.0); ALK PHOS 241 U/L (45-117); AMYLASE 38 U/L (25-115); ANION GAP 8 MMOL/L (8-16); BILIRUBIN,DIRECT 4.6 mg/dL (0.0-0.2); BILIRUBIN,TOTAL 6.2 mg/dL (0.2-1); BILIRUBIN,TOTAL 6.3 mg/dL (0.2-1); BLOOD UREA NITROGEN 8 mg/dL (7-18); CALCIUM 7.8 mg/dL (8.5-10.1); CHLORIDE 100 mmol/L (98-107); CO2 27 mmol/L (21-32); CREATININE 0.6 mg/dL (0.55-1.3); GLUCOSE,RANDOM 89 mg/dL (74-106); MAGNESIUM 1.8 mg/dL (1.8-2.4); PHOSPHOROUS 2.1 mg/dL (2.5-4.9); POTASSIUM 3.7 mmol/L (3.5-5.1); SGOT/AST 75 U/L (15-37); SGPT/ALT 89 U/L (13-61); SODIUM 135 mmol/L (136-145); TOT PROT 5.5 g/dl (6.4-8.2)
[2018-03-05] MEDS ORDERED: POTASSIUM PHOSPHATE 30 MM in DEXTROSE 5%-WATER - 500 ML IVPB ONE (09:15)
[2018-03-05] MEDS ORDERED: RAMIPRIL 5 MG CAPSULE (FP) PO SCH (10:00)
[2018-03-05] MEDS ORDERED: PANTOPRAZOLE SODIUM 40 MG VIAL IVPUSH SCH (10:00)
[2018-03-05] MEDS ORDERED: FINASTERIDE 5 MG TABLET (FP) PO SCH (10:00)
[2018-03-05] MEDS: LACTATED RINGERS SOLUTION 1,000 ML/1,000 ML INFUS.BAG IV SCH ×2 (10:37→21:30)
--- NOTE | 2018-03-05 11:09 | EKG ---
Test Reason : Blood Pressure : / mmHG Vent. Rate : 068 BPM Atrial Rate : 068 BPM P-R Int : 192 ms QRS Dur : 090 ms QT Int : 426 ms P-R-T Axes : 061 -14 009 degrees QTc Int : 452 ms SINUS RHYTHM WITH PREMATURE SUPRAVENTRICULAR COMPLEXES OTHERWISE NORMAL ECG WHEN COMPARED WITH ECG OF 03-MAR-2018 21:27, NO SIGNIFICANT CHANGE WAS FOUND Confirmed by JESUS SHEPHERD, MERYL ([id number]) on 03/05/2018 11:09:09 AM Referred By: Confirmed By:MERYL LEE MD
--- NOTE | 2018-03-05 13:09 | PN ---
Progress Note (short form) - Note Progress Note: Attending Surgeon Seen in f/u; no c/o; tolerating diet; events of last 24 hours noted VSS AF abdo-soft; flat and non tender labs noted IMP: choledocholithiasis and cholelithiasis PLAN: As per GI; once choledocholithiasis is resolved and biliary tract decompressed will proceed w/lap marcy; d/w the patient and his . Montrell Domingo MD FACS
--- NOTE | 2018-03-05 15:12 | PN ---
Physical Exam: SUBJECTIVE: Patient seen and examined. Per nurse, Pt. had 600ml of tea-colored urine. Overight Pt. complained of substernal chest pain. Was given 1mg morphine x 2, EKG, and Troponins were negative. OBJECTIVE: Vital Signs Period Temp Pulse Resp BP Sys/Mcbride Pulse Ox Last 24 Hr 98 F-99.1 F 65-79 20-20 124-160/66-97 96 GENERAL: The patient is awake, alert, and fully oriented, in no acute distress, jaundiced. HEAD: Normal with no signs of trauma. EYES: Sclera anicteric, conjunctiva clear. No ptosis. ENT: Ears normal, nares patent, oropharynx clear without exudates, jaundiced tongue, moist mucous membranes. NECK: Trachea midline, full range of motion, supple. LUNGS: Breath sounds equal, clear to auscultation bilaterally, no wheezes, no crackles, no accessory muscle use. HEART: Irregular rate and rhythm, S1, S2 without murmur ABDOMEN: Soft, mildly tender to palpation, nondistended, normoactive bowel sounds, no guarding, no rebound, dull to percussion EXTREMITIES: 2+ dorsal pedal pulses, warm, well-perfused, no calf tenderness, no edema. NEUROLOGICAL: Normal speech, gait not observed. PSYCH: Normal mood, normal affect. SKIN: Warm, dry Laboratory Results - last 24 hr 03/04/18 03/05/18 03/05/18 22:00 07:00 07:00 WBC RBC Hgb Hct MCV MCH MCHC RDW Plt Count MPV Absolute Neuts (auto) Neutrophils % Lymphocytes % Monocytes % Eosinophils % Basophils % Nucleated RBC % Sodium Potassium Chloride Carbon Dioxide Anion Gap BUN Creatinine Creat Clearance w eGFR Random Glucose Calcium Phosphorus Magnesium Total Bilirubin 6.3 H Direct Bilirubin 4.6 H AST 78 H ALT 88 H Alkaline Phosphatase 237 H Troponin I < 0.02 Total Protein 5.5 L Albumin 2.5 L Total Amylase Lipase 159 03/05/18 03/05/18 07:00 07:00 WBC 8.0 RBC 3.97 L Hgb 12.9 Hct 38.6 MCV 97.1 H MCH 32.5 MCHC 33.5 RDW 12.7 Plt Count 159 MPV 11.4 H Absolute Neuts (auto) 6.7 Neutrophils % 83.6 H Lymphocytes % 6.2 L D Monocytes % 7.5 Eosinophils % 2.4 D Basophils % 0.3 Nucleated RBC % 0 Sodium 135 L Potassium 3.7 Chloride 100 Carbon Dioxide 27 Anion Gap 8 BUN 8 Creatinine 0.6 Creat Clearance w eGFR > 60 Random Glucose 89 Calcium 7.8 L Phosphorus 2.1 L Magnesium 1.8 Total Bilirubin 6.2 H Direct Bilirubin AST 75 H ALT 89 H Alkaline Phosphatase 241 H Troponin I Total Protein 5.5 L Albumin 2.5 L Total Amylase 38 Lipase Active Medications Current Medications Fentanyl (Sublimaze Injection -) 50 mcg IVPUSH [id number] PRN PRN Reason: PAIN-PACU ORDER X 4 DOSES ONLY Finasteride (Proscar -) 5 mg PO DAILY [facility] Last Admin: 03/05/18 10:41 Dose: 5 mg Lactated Ringer's (Lactated Ringers Solution) 1,000 ml in 1,000 mls @ 125 mls/ hr IV ASDIR [facility] Last Admin: 03/05/18 10:37 Dose: 125 mls/hr Ampicillin Sodium/Sulbactam (Sodium 1.5 gm/ Sodium Chloride) 100 mls @ 200 mls/ hr IVPB Q8H-IV [facility] Last Admin: 03/05/18 17:12 Dose: 200 mls/hr Metronidazole (Flagyl 500mg Premixed Ivpb -) 500 mg in 100 mls @ 100 mls/hr IVPB Q8H-IV [facility] Last Admin: 03/05/18 09:00 Dose: 100 mls/hr Metoprolol Succinate (Toprol Xl -) 50 mg PO DAILY [facility] Last Admin: 03/05/18 10:40 Dose: 50 mg Ondansetron HCl (Zofran Injection) 4 mg IVPUSH Q6H PRN PRN Reason: NAUSEA AND/OR VOMITING Pantoprazole Sodium (Protonix Iv) 40 mg IVPUSH DAILY [facility] Last Admin: 03/05/18 10:38 Dose: 40 mg Promethazine HCl (Phenergan Injection -) 12.5 mg IVPB Q6H PRN PRN Reason: NAUSEA-FOR RESCUE AFTER 15 MIN Ramipril (Altace -) 5 mg PO DAILY [facility] Last Admin: 03/05/18 10:40 Dose: 5 mg Home Medications Medication Instructions Recorded Ramipril 5 mg PO DAILY 02/03/14 Metoprolol Succinate 50 mg PO DAILY 11/04/18 Finasteride [Proscar -] 5 mg PO DAILY 03/02/18 ASSESSMENT/PLAN: An 82 y.o. M w/ PMHx. of HTN, HLD, BPH, present to the ED with abdominal pain, nausea and vomiting, admitted for acute pancreatitis 2/2 cholecystitis. #Gastroenterology -Acute pancreatitis likely 2/[address]: showed fat stranding consistent with pancreatitis Abd US: thick walled gallbladder w/ stones and diffuse fatty liver infiltrates MRCP: cholelithiasis, distal choledocolithiasis, 8mm pancreatic tail lipoma, acute pancreatitis w/o ductal involvement or necrosis, trace b/l pleural effusions, f/u MRI in 1 year. surgery on board (Dr. Domingo) CCY cancelled d/t uptrending LFTs and total Bilirubin again. May need to be transferred for hepatobiliary surgery if continuing to uptrend. 2nd ERCP done emergently d/t concerns of developing cholangitis 1st ERCP: removed fragments of stones, s/p sphincterotomy; On Rpt. ERCP: 2 stones found that had moved from [place], 1 was in the CBD- removed, 1 in the left hepatic duct was unable to be removed, therefore stent (7 FR-4 cm length) was placed. abdominal pain c/w LR @ 125 NPO afer midnight Morphine PRN Lipase > 30k on admission now resolved. -Transaminitis likely 2/2 cholecystitis and pancreatitis LFTs and bilirubin up trending s/p ERCP trend LFTs Abd US as noted above c/w IVF #Cardiology -HTN c/w Lopressor 50mg c/w Ramipril 5mg -HLD Pt. no longer on statins f/u after resolution of pancreatitis if statins should be restarted Trigs wnl #Urology -BPH d/c flomax resumed Finasteride 5mg #F/E/N -decreased LR to 50ml/hr -monitor electrolytes, replete as needed -NPO after midnight, clear liquids this evening. #PPx -DVT d/c Hep SQ b/c of sphincterotomy during 1st ERCP -GI c/w Protonix 40mg Visit type - Emergency Visit Emergency Visit: Yes ED Registration Date: 02/28/18 Care time: The patient presented to the Emergency Department on the above date and was hospitalized for further evaluation of their emergent condition. - New Patient This patient is new to me today: No - Critical Care Critical Care patient: Yes Total Critical Care Time (in minutes): 15 - Discharge Referral Referred to [facility] Med P.C.: No
[2018-03-05] MEDS ORDERED: morphine SULFATE 4 MG/ML VIAL ONE (17:11)
[2018-03-05] MEDS ORDERED: MORPHINE SULFATE 2 MG/ML VIAL IM ONE (17:15)
[2018-03-05] MEDS ORDERED: PROMETHAZINE HCL 25 MG/1 ML VIAL IVPB PRN (18:42)
[2018-03-05] MEDS ORDERED: LACTATED RINGERS SOLUTION 1,000 ML/1,000 ML INFUS.BAG IV SCH (18:42)
[2018-03-05] MEDS ORDERED: ONDANSETRON 4 MG/2 ML VIAL IVPUSH PRN (18:42)
--- NOTE | 2018-03-05 19:19 | PN ---
Teaching Attending Note Name of Resident: Wes Stearns ATTENDING PHYSICIAN STATEMENT I saw and evaluated the patient. I reviewed the resident's note and discussed the case with the resident. I agree with the resident's findings and plan as documented. SUBJECTIVE: Patient is comfortable with no acute distress, no headache, no nausea or vomiting. OBJECTIVE: Vital Signs Temperature 99.1 F 03/05/18 17:04 Pulse Rate 73 03/05/18 17:04 Respiratory Rate 20 03/05/18 17:04 Blood Pressure 151/93 03/05/18 17:04 O2 Sat by Pulse Oximetry (%) 96 03/05/18 09:00 GENERAL: The patient is awake, alert, and fully oriented, in no acute distress. EYES: sclera anicteric, conjunctiva clear. ENT: Ears normal, moist mucous membranes LUNGS: Breath sounds equal, clear to auscultation bilaterally, no wheezes, no crackles. HEART: Regular rate and rhythm, S1, S2 without murmur ABDOMEN: Soft, NT,ND, normoactive bowel sounds, no guarding, no rebound EXTREMITIES: 2+ dorsal pedal pulses, warm, no calf tenderness, no edema. NEUROLOGICAL: Normal speech, gait not observed. PSYCH: Normal mood, normal affect. SKIN: Warm, dry, normal turgo CBCD WBC 8.0 K/mm3 (4.0-10.0) 03/05/18 07:00 RBC 3.97 M/mm3 (4.00-5.60) L 03/05/18 07:00 Hgb 12.9 GM/dL (11.7-16.9) 03/05/18 07:00 Hct 38.6 % (35.4-49) 03/05/18 07:00 MCV 97.1 fl (80-96) H 03/05/18 07:00 MCHC 33.5 g/dl (32.0-35.9) 03/05/18 07:00 RDW 12.7 % (11.9-15.9) 03/05/18 07:00 Plt Count 159 K/MM3 (134-434) 03/05/18 07:00 MPV 11.4 fl (7.5-11.1) H 03/05/18 07:00 CMP Sodium 135 mmol/L (136-145) L 03/05/18 07:00 Potassium 3.7 mmol/L (3.5-5.1) 03/05/18 07:00 Chloride 100 mmol/L (98-107) 03/05/18 07:00 Carbon Dioxide 27 mmol/L (21-32) 03/05/18 07:00 Anion Gap 8 MMOL/L (8-16) 03/05/18 07:00 BUN 8 mg/dL (7-18) 03/05/18 07:00 Creatinine 0.6 mg/dL (0.55-1.3) 03/05/18 07:00 Creat Clearance w eGFR > 60 (>60) 03/05/18 07:00 Random Glucose 89 mg/dL (74-106) 03/05/18 07:00 Calcium 7.8 mg/dL (8.5-10.1) L 03/05/18 07:00 Total Bilirubin 6.2 mg/dL (0.2-1) H 03/05/18 07:00 AST 75 U/L (15-37) H 03/05/18 07:00 ALT 89 U/L (13-61) H 03/05/18 07:00 Alkaline Phosphatase 241 U/L (45-117) H 03/05/18 07:00 Total Protein 5.5 g/dl (6.4-8.2) L 03/05/18 07:00 Albumin 2.5 g/dl (3.4-5.0) L 03/05/18 07:00 CARDIAC ENZYMES Creatine Kinase 78 IU/L (26-308) 02/28/18 21:45 Troponin I < 0.02 ng/ml (0.00-0.05) 03/05/18 17:45 Current Medications Generic Name Dose Route Start Last Admin Trade Name Freq PRN Reason Stop Dose Admin Fentanyl 50 mcg 03/05/18 18:42 Sublimaze Injection - IVPUSH [id number] PRN PAIN-PACU ORDER X 4 DOSES ONLY Finasteride 5 mg 03/06/18 10:00 Proscar - PO DAILY [facility] Ampicillin Sodium/Sulbactam 100 mls @ 200 mls/hr 03/06/18 02:00 Sodium 1.5 gm/ Sodium Chloride IVPB Q8H-IV [facility] Metronidazole 500 mg in 100 mls @ 100 mls/hr 03/06/18 02:00 Flagyl 500mg Premixed Ivpb - IVPB Q8H-IV [facility] Lactated Ringer's 1,000 ml in 1,000 mls @ 125 mls/hr 03/05/18 18:42 Lactated Ringers Solution IV ASDIR [facility] Metoprolol Succinate 50 mg 03/06/18 10:00 Toprol Xl - PO DAILY [facility] Ondansetron HCl 4 mg 03/05/18 18:42 Zofran Injection IVPUSH Q6H PRN NAUSEA AND/OR VOMITING Pantoprazole Sodium 40 mg 03/06/18 10:00 Protonix Iv IVPUSH DAILY [facility] Promethazine HCl 12.5 mg 03/05/18 18:42 Phenergan Injection - IVPB Q6H PRN NAUSEA-FOR RESCUE AFTER 15 MIN Ramipril 5 mg 03/06/18 10:00 Altace - PO DAILY [facility] Home Medications Medication Instructions Recorded Ramipril 5 mg PO DAILY 02/03/14 Metoprolol Succinate 50 mg PO DAILY 03/01/18 Finasteride [Proscar -] 5 mg PO DAILY 03/02/18 MRCP: cholelithiasis, distal choledocolithiasis, 8mm pancreatic tail lipoma, acute pancreatitis w/o ductal involvement or necrosis ASSESSMENT AND PLAN: Patient is a 82 y/o man with h/o HTN, HLP, and BPH who presented with abdominal pain and was found to have acute pancreatitis with transaminitis . # Acute gallstone pancreatitis: MRCP positive for choledocolithiasis , patient had the second ERCP ; 2 stones was found that had moved from [place], 1 was in the CBD- removed, 1 in the left hepatic duct was unable to be removed, therefore stent (7 FR-4 cm length) was placed. CCY is scheduled for Friday. # Acute cholecystitis : seen on MRCP; cont Abx ( Flagyl, Unasyn ), CCY for Friday by # HTN : cont meds continue Altace, Toprol Xl DVT Px: SCDs
--- NOTE | 2018-03-05 21:26 | PN ---
GI Progress Note Subjective: GI Note: Events noted. Now on telemetry for chest pain. LFTs are disconcerting so Hida scan and MRCP were ordered this morning. There is no isotope available for the Hida scan and MRCP is still pending. Twan has some RUQ pain but his amylase and lipase are normal It may be due to the stent. Tolerated solids - Objective Vital Signs: Vital Signs Temperature 99.1 F 03/05/18 17:04 Pulse Rate 73 03/05/18 17:04 Respiratory Rate 20 03/05/18 17:04 Blood Pressure 151/93 03/05/18 17:04 O2 Sat by Pulse Oximetry (%) 98 03/05/18 20:51 Laboratory Tests 03/04/18 03/05/18 03/05/18 05:30 07:00 07:00 Total Bilirubin 5.7 H 6.3 H Direct Bilirubin 3.5 H 4.6 H AST 150 H 78 H ALT 127 H 88 H Alkaline Phosphatase 319 H 237 H Total Amylase Lipase 159 03/05/18 07:00 Total Bilirubin Direct Bilirubin AST ALT Alkaline Phosphatase Total Amylase 38 Lipase Constitutional: Calm Eyes: Yes: Sclera Icterus HENT: Yes: Normocephalic ...Auscultate: Yes: Normoactive Bowel Sounds ...Palpate: Yes: Soft, Other (nontender) Labs: CBC, BMP 03/05/18 07:00 03/05/18 07:00 INR, PTT INR 1.25 (0.83-1.09) H 03/02/18 05:30 Assessment/Plan Jaundice related to CBD stone that was extracted yesterday and anticipate that LFTs will trend toward normalization by tomorrow. MRCP and Hida will help to exclude stent occlusion and bile leak Problem List - Problems (1) Jaundice with stoppage of bile flow Assessment/Plan: Suspect that the bilirubin will drop tomorrow and that today's LFTs may reflect a downward trend from a bilirubin that was probably higher by the time I completed his ERCP yesterday. Surgery deferred until the picture is clarified. Continue antibiotics Code(s): R17 - UNSPECIFIED JAUNDICE (2) Acute biliary pancreatitis Code(s): K85.10 - BILIARY ACUTE PANCREATITIS WITHOUT NECROSIS OR INFECTION (3) Abdominal pain Code(s): R10.9 - UNSPECIFIED ABDOMINAL PAIN (4) Vomiting Code(s): R11.10 - VOMITING, UNSPECIFIED (5) Abnormal liver function tests Code(s): R94.5 - ABNORMAL RESULTS OF LIVER FUNCTION STUDIES (6) Choledocholithiasis with obstruction Code(s): K80.51 - CALCULUS OF BILE DUCT W/O CHOLANGITIS OR CHOLECYST W OBST
[2018-03-06] MEDS ORDERED: AMPICILLIN NA/SULBACTAM NA 1.5 GM VIAL ONE ×3 (00:25→18:02)
[2018-03-06] MEDS ORDERED: SODIUM CHLORIDE 100 ML IVPB ONE ×3 (00:26→18:02)
[2018-03-06] MEDS: AMPICILLIN NA/SULBACTAM NA 1.5 GM in SODIUM CHLORIDE 100 ML IVPB SCH ×3 (01:08→18:05)
[2018-03-06 07:32] LABS: BASO % 0.5 % (0-2.0); EOS % 2.9 % (0-4.5); HEMOGLOBIN 13.6 GM/dL (11.7-16.9); LYMPH % 8.5 % (8-40); MCH 32.6 pg (25.7-33.7); MCHC 33.9 g/dl (32.0-35.9); MEAN PLT VOLUME 10.9 fl (7.5-11.1); MONO % 9.6 % (3.8-10.2); NEUT % 78.5 % (42.8-82.8); PLATELET COUNT 177 K/MM3 (134-434); RBC 4.16 M/mm3 (4.00-5.60); WHITE BLOOD COUNT 6.6 K/mm3 (4.0-10.0)
[2018-03-06 08:01] LABS: ALBUMIN 2.4 g/dl (3.4-5.0); BILIRUBIN,DIRECT 2.1 mg/dL (0.0-0.2); BILIRUBIN,TOTAL 2.9 mg/dL (0.2-1); TOT PROT 5.6 g/dl (6.4-8.2)
[2018-03-06 08:26] LABS: ALBUMIN 2.5 g/dl (3.4-5.0); ALK PHOS 216 U/L (45-117); ANION GAP 10 MMOL/L (8-16); BILIRUBIN,DIRECT 2.2 mg/dL (0.0-0.2); BILIRUBIN,TOTAL 3.1 mg/dL (0.2-1); BLOOD UREA NITROGEN 5 mg/dL (7-18); CALCIUM 7.7 mg/dL (8.5-10.1); CHLORIDE 99 mmol/L (98-107); CO2 27 mmol/L (21-32); CREATININE 0.6 mg/dL (0.55-1.3); GAMMA GLUTAMYL TRANSPEPTIDASE 359 U/L (5-85); GLUCOSE,RANDOM 104 mg/dL (74-106); POTASSIUM 3.6 mmol/L (3.5-5.1); SGOT/AST 71 U/L (15-37); SGPT/ALT 75 U/L (13-61); SODIUM 135 mmol/L (136-145); TOT PROT 5.6 g/dl (6.4-8.2)
[2018-03-06 08:31] LABS: INR 1.31 (0.83-1.09); PROTHROMBIN TIME (PATIENT) 15.5 SEC (9.7-13.0)
--- NOTE | 2018-03-06 09:19 | PN ---
Progress Note (short form) - Note Progress Note: Attending Surgeon Bilirubin has dropped; case d/w Dr. Mejia; for lap marcy Friday03/09/18; continue to trend bili and LFT's; please provide medical and/or cardiology clearance as dictated by clinical course.. Montrell Domingo MD FAC S
[2018-03-06] MEDS: PANTOPRAZOLE SODIUM 40 MG VIAL IVPUSH SCH (12:13)
[2018-03-06] MEDS: RAMIPRIL 5 MG CAPSULE (FP) PO SCH (12:14)
[2018-03-06] MEDS: FINASTERIDE 5 MG TABLET (FP) PO SCH (12:14)
--- NOTE | 2018-03-06 13:55 | PN ---
Physical Exam: SUBJECTIVE: Patient seen and examined. Pt. complained of substernal chest pain overnight. 2 mg morphine was given. EKG and Troponins were negative. Pt. denies nausea or vomiting at this time. OBJECTIVE: Vital Signs Period Temp Pulse Resp BP Sys/Mcbride Pulse Ox Last 24 Hr 98.3 F-99.1 F 73-80 18-20 142-154/74-93 98 GENERAL: The patient is awake, alert, and fully oriented, in no acute distress, decreased jaundice. EYES: sclera anicteric, conjunctiva clear. No ptosis. ENT: Ears normal, nares patent, oropharynx clear without exudates, moist mucous membranes. LUNGS: Breath sounds equal, clear to auscultation bilaterally, no wheezes, no crackles, no accessory muscle use. HEART: Iregular rate and rhythm, S1, S2 ABDOMEN: Soft, nontender, nondistended, hyperactive bowel sounds, no guarding, no rebound, no hepatomegaly EXTREMITIES: 2+ dorsal pedal pulses, warm, well-perfused, no calf tenderness, no edema. NEUROLOGICAL: Normal speech, gait not observed. PSYCH: Normal mood, normal affect. SKIN: Warm, dry, normal turgor, no rashes or lesions noted Laboratory Results - last 24 hr 03/05/18 03/06/18 03/06/18 17:45 06:15 06:15 WBC 6.6 RBC 4.16 Hgb 13.6 Hct 40.0 MCV 96.0 MCH 32.6 MCHC 33.9 RDW 13.0 Plt Count 177 MPV 10.9 Absolute Neuts (auto) 5.2 Neutrophils % 78.5 Lymphocytes % 8.5 D Monocytes % 9.6 Eosinophils % 2.9 Basophils % 0.5 Nucleated RBC % 0 PT with INR INR Sodium 135 L Potassium 3.6 Chloride 99 Carbon Dioxide 27 Anion Gap 10 BUN 5 L Creatinine 0.6 Creat Clearance w eGFR > 60 Random Glucose 104 Calcium 7.7 L Total Bilirubin 3.1 H Direct Bilirubin 2.2 H GGT 359 H AST 71 H ALT 75 H Alkaline Phosphatase 216 H Troponin I < 0.02 C-Reactive Protein 7.8 H Total Protein 5.6 L Albumin 2.5 L 03/06/18 03/06/18 06:15 06:15 WBC RBC Hgb Hct MCV MCH MCHC RDW Plt Count MPV Absolute Neuts (auto) Neutrophils % Lymphocytes % Monocytes % Eosinophils % Basophils % Nucleated RBC % PT with INR 15.50 H INR 1.31 H Sodium Potassium Chloride Carbon Dioxide Anion Gap BUN Creatinine Creat Clearance w eGFR Random Glucose Calcium Total Bilirubin 2.9 H Direct Bilirubin 2.1 H GGT AST 74 H ALT 74 H Alkaline Phosphatase 214 H Troponin I C-Reactive Protein Total Protein 5.6 L Albumin 2.4 L Active Medications Current Medications Fentanyl (Sublimaze Injection -) 50 mcg IVPUSH [id number] PRN PRN Reason: PAIN-PACU ORDER X 4 DOSES ONLY Finasteride (Proscar -) 5 mg PO DAILY [facility] Last Admin: 03/06/18 12:14 Dose: 5 mg Ampicillin Sodium/Sulbactam (Sodium 1.5 gm/ Sodium Chloride) 100 mls @ 200 mls/ hr IVPB Q8H-IV [facility] Last Admin: 03/06/18 12:13 Dose: 200 mls/hr Metronidazole (Flagyl 500mg Premixed Ivpb -) 500 mg in 100 mls @ 100 mls/hr IVPB Q8H-IV [facility] Last Admin: 03/06/18 12:13 Dose: 100 mls/hr Lactated Ringer's (Lactated Ringers Solution) 1,000 ml in 1,000 mls @ 50 mls/ hr IV ASDIR [facility] Last Admin: 03/05/18 21:30 Dose: 50 mls/hr Metoprolol Succinate (Toprol Xl -) 50 mg PO DAILY [facility] Last Admin: 03/06/18 12:15 Dose: 50 mg Ondansetron HCl (Zofran Injection) 4 mg IVPUSH Q6H PRN PRN Reason: NAUSEA AND/OR VOMITING Pantoprazole Sodium (Protonix Iv) 40 mg IVPUSH DAILY [facility] Last Admin: 03/06/18 12:13 Dose: 40 mg Promethazine HCl (Phenergan Injection -) 12.5 mg IVPB Q6H PRN PRN Reason: NAUSEA-FOR RESCUE AFTER 15 MIN Ramipril (Altace -) 5 mg PO DAILY [facility] Last Admin: 03/06/18 12:14 Dose: 5 mg Home Medications Medication Instructions Recorded Ramipril 5 mg PO DAILY 02/03/14 Metoprolol Succinate 50 mg PO DAILY 03/01/18 Finasteride [Proscar -] 5 mg PO DAILY 03/02/18 ASSESSMENT/PLAN: An 82 y.o. M w/ PMHx. of HTN, HLD, BPH, present to the ED with abdominal pain, nausea and vomiting, admitted for acute pancreatitis 2/2 cholecystitis. #Gastroenterology -Acute pancreatitis likely 2/[address]: showed fat stranding consistent with pancreatitis Abd US: thick walled gallbladder w/ stones and diffuse fatty liver infiltrates MRCP: cholelithiasis, distal choledocolithiasis, 8mm pancreatic tail lipoma, acute pancreatitis w/o ductal involvement or necrosis, trace b/l pleural effusions, f/u MRI in 1 year. Surgery on board (Dr. Domingo) CCY planned for Friday03/09/18. 2nd ERCP done emergently d/t concerns of developing cholangitis 1st ERCP: removed fragments of stones, s/p sphincterotomy; On Rpt. ERCP: 2 stones found that had moved from [place], 1 was in the CBD- removed, 1 in the left hepatic duct was unable to be removed, therefore stent (7 FR-4 cm length) was placed. c/w LR @ 125 NPO afer midnight Morphine PRN Lipase > 30k on admission now resolved. -Transaminitis likely 2/2 cholecystitis and pancreatitis LFTs and bilirubin up trending s/p ERCP trend LFTs Abd US as noted above c/w IVF #Cardiology -HTN c/w Lopressor 50mg c/w Ramipril 5mg -HLD Pt. no longer on statins f/u after resolution of pancreatitis if statins should be restarted Trigs wnl #Urology -BPH d/c flomax resumed Finasteride 5mg #F/E/N -decreased LR to 50ml/hr -monitor electrolytes, replete as needed -Regular diet #PPx -DVT d/c Hep SQ b/c of sphincterotomy during 1st ERCP, will discuss with cardio about when to restart anticoagulation -GI c/w Protonix 40mg Visit type - Emergency Visit Emergency Visit: Yes ED Registration Date: 02/28/18 Care time: The patient presented to the Emergency Department on the above date and was hospitalized for further evaluation of their emergent condition. - New Patient This patient is new to me today: No - Critical Care Critical Care patient: Yes Total Critical Care Time (in minutes): 20 - Discharge Referral Referred to [facility] Med P.C.: No
--- NOTE | 2018-03-06 14:06 | CON.CARD ---
Consult Consult Specialty:: Cardiology Referred by:: Salas Reason for Consultation:: chest pain - History of Present Illness Chief Complaint: chest pain History of Present Illness: 82M h/o HLD, HTN, gallstone pancreatitis initially p/w 3 days of abd pain, nausea, vomiting, now with chest pain. During this admission lipase >30k, worked up for gallstone pancreatitis with ERCP x2, MRCP today with plans for cholecystectomy next week. Has complained of several episodes of chest pain, most recently last night. Pain has been RUQ/LUQ, associated with vomiting on prior episodes. patient denies having chest pain last night as reported, he feels okay. no dyspnea, palps, edema, orthopnea, PND. No prior cardiac history or cardiac testing per patient. Ruled out for KS with negative troponins thus far, transferred to tele yesterday. EKG shows sinus with PVCs and PACs. - History Source History Provided By: Patient Limitations to Obtaining History: No Limitations - Past Medical History Cardio/Vascular: Yes: HTN Renal/: Yes: BPH - Past Surgical History Past Surgical History: Yes: Colonoscopy, Hernia Repair (RIH), Joint Replacement (right TKR), TURP, Upper Endoscopy - Alcohol/Substance Use Hx Alcohol Use: No History of Substance Use: reports: None - Smoking History Smoking history: Never smoked Have you smoked in the past 12 months: No Aproximately how many cigarettes per day: 0 - Social History Usual Living Arrangement: With Spouse ADL: Independent Occupation: [employer] [place] History of Recent Travel: No Home Medications - Allergies Allergies/Adverse Reactions: Allergies Allergy/AdvReac Type Severity Reaction Status Date / Time No Known Allergies Allergy Verified 02/28/18 21:11 - Home Medications Home Medications: Ambulatory Orders Ramipril 5 mg PO DAILY 02/03/14 Metoprolol Succinate 50 mg PO DAILY 03/01/18 Finasteride [Proscar -] 5 mg PO DAILY 03/02/18 Family Disease History - Family Disease History Family Disease History: Heart Disease: Mother ( 72 heart disease), CA: Father ( 83 throat cancer), Other: Father, Sister (Alzheimers) Review of Systems - Review of Systems Constitutional: reports: No Symptoms Eyes: reports: No Symptoms HENT: reports: No Symptoms Neck: reports: No Symptoms Cardiovascular: reports: No Symptoms Respiratory: reports: No Symptoms Gastrointestinal: reports: Abdominal Pain Genitourinary: reports: No Symptoms Musculoskeletal: reports: No Symptoms Integumentary: reports: No Symptoms Neurological: reports: No Symptoms Endocrine: reports: No Symptoms Hematology/Lymphatic: reports: No Symptoms Psychiatric: reports: No Symptoms Vital Signs: Vital Signs Temperature 99 F 03/06/18 05:35 Pulse Rate 80 03/06/18 08:07 Respiratory Rate 18 03/06/18 08:07 Blood Pressure 143/82 03/06/18 08:07 O2 Sat by Pulse Oximetry (%) 98 03/05/18 20:51 Constitutional: Yes: Well Nourished, No Distress, Calm Eyes: Yes: Conjunctiva Clear, EOM Intact HENT: Yes: Atraumatic, Normocephalic Neck: Yes: Supple, Trachea Midline Respiratory: Yes: Regular, CTA Bilaterally Gastrointestinal: Yes: Normal Bowel Sounds, Soft Cardiovascular: Yes: Regular Rate and Rhythm JVD: No Carotid Bruit: No PMI: Non-Displaced Heart Sounds: Yes: S1, S2 Edema: No Peripheral Pulses WNL: Yes Peripheral Pulses: 2+ Left Doralis Pedis, 2+ Right Dorsalis Pedis Integumentary: No: Erythema Neurological: Yes: Alert, Oriented Psychiatric: Yes: Alert, Oriented - Other Data Labs, Other Data: CBC, BMP 03/06/18 06:15 03/06/18 06:15 INR, PTT INR 1.31 (0.83-1.09) H 03/06/18 06:15 Troponin, BNP 03/05/18 17:45 Troponin I < 0.02 Troponin, BNP 03/05/18 17:45 Troponin I < 0.02 Assessment/Plan EKG: sinus with PVCs and PACs Tele: sinus, PACs, PVCs Chest pain, abnormal EKG, PVCs and PACs - neg trops this admission, now chest pain free - no ischemic changes on EKG - PACs and PVCs noted on tele and EKG, no h/o palps, on bb - history of chest pain/abd pain most likely in setting of pancreatitis/ cholecystitis - echo pending, if benign findings would dc telemetry Pancreatitis, cholecystitis - GI and surgery following, planned cholecystectomy next week - echo pending, if benign findings no further CV testing and would proceed with cholecystectomy as planned HTN - elevated today on lopressor, ramipril HLD - holding statin in setting of elevated LFTs
--- NOTE | 2018-03-06 18:46 | PN ---
GI Progress Note Subjective: GI Note: Jaundice finally resolving. Hida scan confirms stent patency. Will cancel MRCP - Objective Vital Signs: Vital Signs Temperature 97.9 F 03/06/18 17:00 Pulse Rate 99 H 03/06/18 17:00 Respiratory Rate 18 03/06/18 17:00 Blood Pressure 142/94 03/06/18 17:00 O2 Sat by Pulse Oximetry (%) 98 03/05/18 20:51 Laboratory Tests 03/04/18 03/05/18 03/05/18 05:30 07:00 07:00 Total Bilirubin 5.7 H 6.3 H AST ALT Alkaline Phosphatase 319 H 241 H Total Amylase 38 03/06/18 03/06/18 06:15 06:15 Total Bilirubin 3.1 H AST 74 H ALT 74 H Alkaline Phosphatase 214 H Total Amylase Constitutional: Calm Eyes: Yes: Sclera Icterus ...Auscultate: Yes: Normoactive Bowel Sounds ...Palpate: Yes: Soft, Other (nontender) Labs: CBC, BMP 03/06/18 06:15 03/06/18 06:15 INR, PTT INR 1.31 (0.83-1.09) H 03/06/18 06:15 Assessment/Plan Resolving jaundice, stent functioning well Discussed situation with Twan and his son For surgery Friday Will cancel MRCP Dr Jeffrey will be covering this Problem List - Problems (1) Jaundice with stoppage of bile flow Code(s): R17 - UNSPECIFIED JAUNDICE (2) Acute biliary pancreatitis Code(s): K85.10 - BILIARY ACUTE PANCREATITIS WITHOUT NECROSIS OR INFECTION (3) Abdominal pain Code(s): R10.9 - UNSPECIFIED ABDOMINAL PAIN (4) Vomiting Code(s): R11.10 - VOMITING, UNSPECIFIED (5) Abnormal liver function tests Code(s): R94.5 - ABNORMAL RESULTS OF LIVER FUNCTION STUDIES (6) Choledocholithiasis with obstruction Code(s): K80.51 - CALCULUS OF BILE DUCT W/O CHOLANGITIS OR CHOLECYST W OBST
--- NOTE | 2018-03-06 20:37 | PN ---
Teaching Attending Note Name of Resident: Wes Stearns ATTENDING PHYSICIAN STATEMENT I saw and evaluated the patient. I reviewed the resident's note and discussed the case with the resident. I agree with the resident's findings and plan as documented. SUBJECTIVE: Patient is comfortable with no acute distress. OBJECTIVE: Vital Signs Temperature 97.9 F 03/06/18 17:00 Pulse Rate 99 H 03/06/18 17:00 Respiratory Rate 18 03/06/18 17:00 Blood Pressure 142/94 03/06/18 17:00 O2 Sat by Pulse Oximetry (%) 98 03/05/18 20:51 GENERAL: The patient is awake, alert, and fully oriented, in no acute distress. EYES: sclera anicteric, conjunctiva clear. ENT: Ears normal, moist mucous membranes LUNGS: Breath sounds equal, clear to auscultation bilaterally, no wheezes, no crackles, no accessory muscle use. HEART: Regular rate and rhythm, S1, S2 without murmur ABDOMEN: Soft, nontender, nondistended, normoactive bowel sounds, no guarding, no rebound EXTREMITIES: 2+ dorsal pedal pulses, warm, no calf tenderness, well-perfused, no edema. NEUROLOGICAL: Normal speech, gait not observed. PSYCH: Normal mood, normal affect. SKIN: Warm, dry, normal turgo CBCD WBC 6.6 K/mm3 (4.0-10.0) 03/06/18 06:15 RBC 4.16 M/mm3 (4.00-5.60) 03/06/18 06:15 Hgb 13.6 GM/dL (11.7-16.9) 03/06/18 06:15 Hct 40.0 % (35.4-49) 03/06/18 06:15 MCV 96.0 fl (80-96) 03/06/18 06:15 MCHC 33.9 g/dl (32.0-35.9) 03/06/18 06:15 RDW 13.0 % (11.9-15.9) 03/06/18 06:15 Plt Count 177 K/MM3 (134-434) 03/06/18 06:15 MPV 10.9 fl (7.5-11.1) 03/06/18 06:15 CMP Sodium 135 mmol/L (136-145) L 03/06/18 06:15 Potassium 3.6 mmol/L (3.5-5.1) 03/06/18 06:15 Chloride 99 mmol/L (98-107) 03/06/18 06:15 Carbon Dioxide 27 mmol/L (21-32) 03/06/18 06:15 Anion Gap 10 MMOL/L (8-16) 03/06/18 06:15 BUN 5 mg/dL (7-18) L 03/06/18 06:15 Creatinine 0.6 mg/dL (0.55-1.3) 03/06/18 06:15 Creat Clearance w eGFR > 60 (>60) 03/06/18 06:15 Random Glucose 104 mg/dL (74-106) 03/06/18 06:15 Calcium 7.7 mg/dL (8.5-10.1) L 03/06/18 06:15 Total Bilirubin 3.1 mg/dL (0.2-1) H 03/06/18 06:15 AST 71 U/L (15-37) H 03/06/18 06:15 ALT 75 U/L (13-61) H 03/06/18 06:15 Alkaline Phosphatase 216 U/L (45-117) H 03/06/18 06:15 Total Protein 5.6 g/dl (6.4-8.2) L 03/06/18 06:15 Albumin 2.5 g/dl (3.4-5.0) L 03/06/18 06:15 CARDIAC ENZYMES Creatine Kinase 78 IU/L (26-308) 02/28/18 21:45 Troponin I < 0.02 ng/ml (0.00-0.05) 03/05/18 17:45 Current Medications Generic Name Dose Route Start Last Admin Trade Name Freq PRN Reason Stop Dose Admin Fentanyl 50 mcg 03/05/18 18:42 Sublimaze Injection - IVPUSH [id number] PRN PAIN-PACU ORDER X 4 DOSES ONLY Finasteride 5 mg 03/06/18 10:00 03/06/18 12:14 Proscar - PO 5 mg DAILY KONRAD Administration Ampicillin Sodium/Sulbactam 100 mls @ 200 mls/hr 03/06/18 02:00 03/06/18 18: 05 Sodium 1.5 gm/ Sodium Chloride IVPB 200 mls/hr Q8H-IV KONRAD Administration Metronidazole 500 mg in 100 mls @ 100 mls/hr 03/06/18 02:00 03/06/18 18:05 Flagyl 500mg Premixed Ivpb - IVPB 100 mls/hr Q8H-IV KONRAD Administration Lactated Ringer's 1,000 ml in 1,000 mls @ 50 mls/hr 03/05/18 21:30 03/05/18 21:30 Lactated Ringers Solution IV 50 mls/hr ASDIR KONRAD Administration Metoprolol Succinate 50 mg 03/06/18 10:00 03/06/18 12:15 Toprol Xl - PO 50 mg DAILY KONRAD Administration Ondansetron HCl 4 mg 03/05/18 18:42 Zofran Injection IVPUSH Q6H PRN NAUSEA AND/OR VOMITING Pantoprazole Sodium 40 mg 03/06/18 10:00 03/06/18 12:13 Protonix Iv IVPUSH 40 mg DAILY KONRAD Administration Promethazine HCl 12.5 mg 03/05/18 18:42 Phenergan Injection - IVPB Q6H PRN NAUSEA-FOR RESCUE AFTER 15 MIN Ramipril 5 mg 03/06/18 10:00 03/06/18 12:14 Altace - PO 5 mg DAILY KONRAD Administration Home Medications Medication Instructions Recorded Ramipril 5 mg PO DAILY 02/03/14 Metoprolol Succinate 50 mg PO DAILY 03/01/18 Finasteride [Proscar -] 5 mg PO DAILY 03/02/18 ASSESSMENT AND PLAN: Patient is a 82 y/o man with h/o HTN, HLP, and BPH who presented with abdominal pain and was found to have acute pancreatitis with transaminitis . # Acute gallstone pancreatitis: MRCP positive for choledocolithiasis , s/p ERCP x2 , 2 stones were found that had moved from GB, 1 was in the CBD- removed, 1 in the left hepatic duct was unable to be removed, therefore stent ( 7 FR-4 cm length) was placed. CCY is scheduled for Friday. Rest the abdomen before surgery. # Acute Transaminitis trending down. # Acute cholecystitis : s/p MRCP; cont Abx ( Flagyl, Unasyn ), CCY for Friday by # HTN : cont meds continue Altace, Toprol Xl DVT Px: SCDs
[2018-03-06] MEDS: LACTATED RINGERS SOLUTION 1,000 ML/1,000 ML INFUS.BAG IV SCH (23:14)
[2018-03-07] MEDS ORDERED: MORPHINE SULFATE 2 MG/ML VIAL IVPUSH ONE (01:15)
[2018-03-07] MEDS ORDERED: AMPICILLIN NA/SULBACTAM NA 1.5 GM VIAL ONE ×2 (01:19→10:28)
[2018-03-07] MEDS ORDERED: SODIUM CHLORIDE 100 ML IVPB ONE ×2 (01:20→10:28)
[2018-03-07] MEDS: AMPICILLIN NA/SULBACTAM NA 1.5 GM in SODIUM CHLORIDE 100 ML IVPB SCH ×3 (01:30→17:26)
[2018-03-07 07:56] LABS: BASO % 0.6 % (0-2.0); EOS % 2.6 % (0-4.5); HEMATOCRIT 41.2 % (35.4-49); HEMOGLOBIN 13.7 GM/dL (11.7-16.9); LYMPH % 17.3 % (8-40); MCH 32.2 pg (25.7-33.7); MCHC 33.3 g/dl (32.0-35.9); MEAN CELL VOLUME 96.8 fl (80-96); MEAN PLT VOLUME 10.3 fl (7.5-11.1); MONO % 11.1 % (3.8-10.2); NEUT % 68.4 % (42.8-82.8); PLATELET COUNT 181 K/MM3 (134-434); RBC 4.26 M/mm3 (4.00-5.60); RDW 13.1 % (11.9-15.9); WHITE BLOOD COUNT 6.1 K/mm3 (4.0-10.0)
[2018-03-07 08:37] LABS: ALBUMIN 2.3 g/dl (3.4-5.0); ALK PHOS 212 U/L (45-117); ANION GAP 7 MMOL/L (8-16); BILIRUBIN,TOTAL 1.6 mg/dL (0.2-1); BLOOD UREA NITROGEN 8 mg/dL (7-18); CALCIUM 7.8 mg/dL (8.5-10.1); CHLORIDE 97 mmol/L (98-107); CO2 31 mmol/L (21-32); CREATININE 0.7 mg/dL (0.55-1.3); GLUCOSE,RANDOM 96 mg/dL (74-106); POTASSIUM 3.6 mmol/L (3.5-5.1); SGOT/AST 57 U/L (15-37); SGPT/ALT 63 U/L (13-61); SODIUM 135 mmol/L (136-145); TOT PROT 5.4 g/dl (6.4-8.2)
[2018-03-07] MEDS ORDERED: KETOROLAC TROMETHAMINE 15 MG/ML VIAL IVPUSH ONE (09:20)
[2018-03-07] MEDS: PANTOPRAZOLE SODIUM 40 MG VIAL IVPUSH SCH (11:33)
[2018-03-07] MEDS: RAMIPRIL 5 MG CAPSULE (FP) PO SCH (11:33)
[2018-03-07] MEDS: FINASTERIDE 5 MG TABLET (FP) PO SCH (11:33)
--- NOTE | 2018-03-07 11:36 | PN ---
Progress Note (short form) - Note Progress Note: s: feels well, no cp sob palps dizzy o: Vital Signs Period Temp Pulse Resp BP Sys/Mcbride Pulse Ox Last 24 Hr 97.9 F-98.7 F 74-99 18-19 112-145/64-94 95 Constitutional: Yes: Well Nourished, No Distress, Calm Neck: Yes: Supple, Trachea Midline Respiratory: Yes: Regular, CTA Bilaterally Gastrointestinal: Yes: Normal Bowel Sounds, Soft Cardiovascular: Yes: Regular Rate and Rhythm JVD: No Heart Sounds: Yes: S1, S2 Edema: No Peripheral Pulses: 2+ Left Doralis Pedis, 2+ Right Dorsalis Pedis Integumentary: No: Erythema jaundice diaphoresis Neurological: Yes: Alert, Oriented Psychiatric: Yes: Alert, Oriented Current Medications Generic Name Dose Route Start Last Admin Trade Name Freq PRN Reason Stop Dose Admin Fentanyl 50 mcg 03/05/18 18:42 Sublimaze Injection - IVPUSH [id number] PRN PAIN-PACU ORDER X 4 DOSES ONLY Finasteride 5 mg 03/06/18 10:00 03/06/18 12:14 Proscar - PO 5 mg DAILY KONRAD Administration Ampicillin Sodium/Sulbactam 100 mls @ 200 mls/hr 03/06/18 02:00 03/07/18 01: 30 Sodium 1.5 gm/ Sodium Chloride IVPB 200 mls/hr Q8H-IV KONRAD Administration Metronidazole 500 mg in 100 mls @ 100 mls/hr 03/06/18 02:00 03/07/18 02:21 Flagyl 500mg Premixed Ivpb - IVPB 100 mls/hr Q8H-IV KONRAD Administration Lactated Ringer's 1,000 ml in 1,000 mls @ 50 mls/hr 03/05/18 21:30 03/06/18 23:14 Lactated Ringers Solution IV 50 mls/hr ASDIR KONRAD Administration Metoprolol Succinate 50 mg 03/06/18 10:00 03/06/18 12:15 Toprol Xl - PO 50 mg DAILY KONRAD Administration Ondansetron HCl 4 mg 03/05/18 18:42 Zofran Injection IVPUSH Q6H PRN NAUSEA AND/OR VOMITING Pantoprazole Sodium 40 mg 03/06/18 10:00 03/06/18 12:13 Protonix Iv IVPUSH 40 mg DAILY KONRAD Administration Promethazine HCl 12.5 mg 03/05/18 18:42 Phenergan Injection - IVPB Q6H PRN NAUSEA-FOR RESCUE AFTER 15 MIN Ramipril 5 mg 03/06/18 10:00 03/06/18 12:14 Altace - PO 5 mg DAILY KONRAD Administration CBC, BMP 03/07/18 05:30 03/07/18 05:30 EKG: sinus with PVCs and PACs Tele: sinus, PACs, PVCs echo 07/2015: nl lv/rv, mod tr, mild-mod ar, nl rvsp, mod ao root dil mibi 07/2015: nl mpi Assessment/Plan Chest pain, abnormal EKG, PVCs and PACs - neg trops this admission, now chest pain free - no ischemic changes on EKG - recent echo with nl lvef and recent nuclear stress test unremarkable - PACs and PVCs noted on tele and EKG, no h/o palps, on bb - history of chest pain/abd pain most likely in setting of pancreatitis/ cholecystitis Pancreatitis, cholecystitis - GI and surgery following, planned cholecystectomy next week - no cardiac contraindications to planned cholecystectomy HTN -cont current meds HLD - holding statin in setting of elevated LFTs
--- NOTE | 2018-03-07 21:35 | PN ---
Progress Note (short form) - Note Progress Note: Patient is comfortable with no acute distress. No further abdominal pain. Vital Signs Temperature 98.1 F 03/07/18 20:20 Pulse Rate 70 03/07/18 20:20 Respiratory Rate 18 03/07/18 20:20 Blood Pressure 133/74 03/07/18 20:20 O2 Sat by Pulse Oximetry (%) 95 03/07/18 20:20 GENERAL: The patient is awake, alert, and fully oriented, in no acute distress. EYES: sclera anicteric, conjunctiva clear. ENT: Ears normal, moist mucous membranes LUNGS: Breath sounds equal, clear to auscultation bilaterally, no wheezes, no crackles, no accessory muscle use. HEART: Regular rate and rhythm, S1, S2 without murmur ABDOMEN: Soft, nontender, nondistended, normoactive bowel sounds, no guarding, no rebound EXTREMITIES: 2+ dorsal pedal pulses, warm, no calf tenderness, well-perfused, no edema. NEUROLOGICAL: Normal speech, gait not observed. PSYCH: Normal mood, normal affect. SKIN: Warm, dry, normal turgor CBCD WBC 6.1 K/mm3 (4.0-10.0) 03/07/18 05:30 RBC 4.26 M/mm3 (4.00-5.60) 03/07/18 05:30 Hgb 13.7 GM/dL (11.7-16.9) 03/07/18 05:30 Hct 41.2 % (35.4-49) 03/07/18 05:30 MCV 96.8 fl (80-96) H 03/07/18 05:30 MCHC 33.3 g/dl (32.0-35.9) 03/07/18 05:30 RDW 13.1 % (11.9-15.9) 03/07/18 05:30 Plt Count 181 K/MM3 (134-434) 03/07/18 05:30 MPV 10.3 fl (7.5-11.1) 03/07/18 05:30 CMP Sodium 135 mmol/L (136-145) L 03/07/18 05:30 Potassium 3.6 mmol/L (3.5-5.1) 03/07/18 05:30 Chloride 97 mmol/L (98-107) L 03/07/18 05:30 Carbon Dioxide 31 mmol/L (21-32) 03/07/18 05:30 Anion Gap 7 MMOL/L (8-16) L 03/07/18 05:30 BUN 8 mg/dL (7-18) 03/07/18 05:30 Creatinine 0.7 mg/dL (0.55-1.3) 03/07/18 05:30 Creat Clearance w eGFR > 60 (>60) 03/07/18 05:30 Random Glucose 96 mg/dL (74-106) 03/07/18 05:30 Calcium 7.8 mg/dL (8.5-10.1) L 03/07/18 05:30 Total Bilirubin 1.6 mg/dL (0.2-1) H 03/07/18 05:30 AST 57 U/L (15-37) H 03/07/18 05:30 ALT 63 U/L (13-61) H 03/07/18 05:30 Alkaline Phosphatase 212 U/L (45-117) H 03/07/18 05:30 Total Protein 5.4 g/dl (6.4-8.2) L 03/07/18 05:30 Albumin 2.3 g/dl (3.4-5.0) L 03/07/18 05:30 CARDIAC ENZYMES Creatine Kinase 30 IU/L (26-308) 03/07/18 09:30 Troponin I < 0.02 ng/ml (0.00-0.05) 03/07/18 14:50 Current Medications Generic Name Dose Route Start Last Admin Trade Name Freq PRN Reason Stop Dose Admin Fentanyl 50 mcg 03/05/18 18:42 Sublimaze Injection - IVPUSH [id number] PRN PAIN-PACU ORDER X 4 DOSES ONLY Finasteride 5 mg 03/06/18 10:00 03/07/18 11:33 Proscar - PO 5 mg DAILY KONRAD Administration Ampicillin Sodium/Sulbactam 100 mls @ 200 mls/hr 03/06/18 02:00 03/07/18 17: 26 Sodium 1.5 gm/ Sodium Chloride IVPB 200 mls/hr Q8H-IV KONRAD Administration Metronidazole 500 mg in 100 mls @ 100 mls/hr 03/06/18 02:00 03/07/18 17:26 Flagyl 500mg Premixed Ivpb - IVPB 100 mls/hr Q8H-IV KONRAD Administration Lactated Ringer's 1,000 ml in 1,000 mls @ 50 mls/hr 03/05/18 21:30 03/06/18 23:14 Lactated Ringers Solution IV 50 mls/hr ASDIR KONRAD Administration Metoprolol Succinate 50 mg 03/06/18 10:00 03/07/18 11:33 Toprol Xl - PO 50 mg DAILY KONRAD Administration Ondansetron HCl 4 mg 03/05/18 18:42 Zofran Injection IVPUSH Q6H PRN NAUSEA AND/OR VOMITING Pantoprazole Sodium 40 mg 03/06/18 10:00 03/07/18 11:33 Protonix Iv IVPUSH 40 mg DAILY KONRAD Administration Promethazine HCl 12.5 mg 03/05/18 18:42 Phenergan Injection - IVPB Q6H PRN NAUSEA-FOR RESCUE AFTER 15 MIN Ramipril 5 mg 03/06/18 10:00 03/07/18 11:33 Altace - PO 5 mg DAILY KONRAD Administration Home Medications Medication Instructions Recorded Ramipril 5 mg PO DAILY 02/03/14 Metoprolol Succinate 50 mg PO DAILY 03/01/18 Finasteride [Proscar -] 5 mg PO DAILY 03/02/18 Laboratory Tests 02/28/18 03/01/18 03/02/18 21:45 06:08 05:30 Total Bilirubin Direct Bilirubin GGT AST 506 H 261 H 96 H ALT 334 H 288 H 153 H Alkaline Phosphatase 154 H 125 H 03/03/18 03/03/18 03/04/18 06:35 06:35 05:30 Total Bilirubin Direct Bilirubin GGT AST 45 H 45 H 150 H ALT 99 H 100 H 127 H Alkaline Phosphatase 83 319 H 03/05/18 03/05/18 03/06/18 07:00 07:00 06:15 Total Bilirubin 6.3 H 6.2 H 3.1 H Direct Bilirubin 4.6 H 2.2 H GGT 359 H AST 78 H 75 H 71 H ALT 88 H 89 H 75 H Alkaline Phosphatase 237 H 241 H 216 H 03/06/18 03/07/18 06:15 05:30 Total Bilirubin 2.9 H 1.6 H Direct Bilirubin 2.1 H 1.0 H GGT AST 74 H 57 H ALT 74 H 63 H Alkaline Phosphatase 214 H 212 H Assessment and Plan: Patient is a 82 y/o man with h/o HTN, HLP, and BPH who presented with abdominal pain and was found to have acute pancreatitis with transaminitis . # Acute gallstone pancreatitis: s/p MRCP positive for choledocolithiasis , s/ p ERCP x2 , 2 stones were found that had moved from GB, 1 was in the CBD- removed, 1 in the left hepatic duct was unable to be removed, therefore stent ( 7 FR-4 cm length) was placed. CCY is scheduled for Friday. Rest the abdomen before surgery. # Acute Transaminitis trending down. will continue to monitor # Acute cholecystitis : s/p MRCP; cont Abx ( Flagyl, Unasyn ), CCY for Friday by # HTN : cont meds continue Altace, Toprol Xl DVT Px: SCDs Visit type - Emergency Visit Emergency Visit: Yes ED Registration Date: 02/28/18 Care time: The patient presented to the Emergency Department on the above date and was hospitalized for further evaluation of their emergent condition. - New Patient This patient is new to me today: No - Critical Care Critical Care patient: No - Discharge Referral Referred to [facility] Med P.C.: No
[2018-03-08] MEDS: AMPICILLIN NA/SULBACTAM NA 1.5 GM in SODIUM CHLORIDE 100 ML IVPB SCH ×3 (02:30→17:39)
[2018-03-08] MEDS ORDERED: AMPICILLIN NA/SULBACTAM NA 1.5 GM VIAL ONE ×3 (03:28→17:20)
[2018-03-08] MEDS ORDERED: SODIUM CHLORIDE 100 ML IVPB ONE ×3 (03:28→17:20)
[2018-03-08] MEDS: LACTATED RINGERS SOLUTION 1,000 ML/1,000 ML INFUS.BAG IV SCH ×2 (03:37→21:00)
[2018-03-08 06:51] LABS: BASO % 0.5 % (0-2.0); EOS % 2.9 % (0-4.5); HEMATOCRIT 38.8 % (35.4-49); LYMPH % 18.2 % (8-40); MCH 32.3 pg (25.7-33.7); MCHC 33.6 g/dl (32.0-35.9); MEAN CELL VOLUME 96.2 fl (80-96); MEAN PLT VOLUME 10.5 fl (7.5-11.1); MONO % 9.4 % (3.8-10.2); PLATELET COUNT 204 K/MM3 (134-434); RBC 4.04 M/mm3 (4.00-5.60); RDW 12.9 % (11.9-15.9); WHITE BLOOD COUNT 6.7 K/mm3 (4.0-10.0)
[2018-03-08 07:33] LABS: ALBUMIN 2.4 g/dl (3.4-5.0); ALK PHOS 191 U/L (45-117); ANION GAP 8 MMOL/L (8-16); BILIRUBIN,DIRECT 0.8 mg/dL (0.0-0.2); BILIRUBIN,TOTAL 1.2 mg/dL (0.2-1); BLOOD UREA NITROGEN 8 mg/dL (7-18); CALCIUM 7.6 mg/dL (8.5-10.1); CHLORIDE 101 mmol/L (98-107); CO2 28 mmol/L (21-32); CREATININE 0.6 mg/dL (0.55-1.3); GLUCOSE,RANDOM 97 mg/dL (74-106); POTASSIUM 3.6 mmol/L (3.5-5.1); SGOT/AST 61 U/L (15-37); SGPT/ALT 58 U/L (13-61); SODIUM 137 mmol/L (136-145); TOT PROT 5.4 g/dl (6.4-8.2)
[2018-03-08] MEDS: PANTOPRAZOLE SODIUM 40 MG VIAL IVPUSH SCH (11:27)
[2018-03-08] MEDS: FINASTERIDE 5 MG TABLET (FP) PO SCH (11:27)
[2018-03-08] MEDS: RAMIPRIL 5 MG CAPSULE (FP) PO SCH (11:28)
--- NOTE | 2018-03-08 12:11 | PN ---
Progress Note (short form) - Note Progress Note: s: feels well, no cp sob palps dizzy o: Vital Signs Period Temp Pulse Resp BP Sys/Mcbride Pulse Ox Last 24 Hr 97.7 F-98.2 F 65-74 18-20 103-145/68-90 95 Constitutional: Yes: Well Nourished, No Distress, Calm Neck: Yes: Supple, Trachea Midline Respiratory: Yes: Regular, CTA Bilaterally Gastrointestinal: Yes: Normal Bowel Sounds, Soft Cardiovascular: Yes: Regular Rate and Rhythm JVD: No Heart Sounds: Yes: S1, S2 Edema: No Peripheral Pulses: 2+ Left Doralis Pedis, 2+ Right Dorsalis Pedis Integumentary: No: Erythema jaundice diaphoresis Neurological: Yes: Alert, Oriented Psychiatric: Yes: Alert, Oriented Current Medications Generic Name Dose Route Start Last Admin Trade Name Freq PRN Reason Stop Dose Admin Fentanyl 50 mcg 03/05/18 18:42 Sublimaze Injection - IVPUSH [id number] PRN PAIN-PACU ORDER X 4 DOSES ONLY Finasteride 5 mg 03/06/18 10:00 03/08/18 11:27 Proscar - PO 5 mg DAILY KONRAD Administration Ampicillin Sodium/Sulbactam 100 mls @ 200 mls/hr 03/06/18 02:00 03/08/18 11: 27 Sodium 1.5 gm/ Sodium Chloride IVPB 200 mls/hr Q8H-IV KONRAD Administration Metronidazole 500 mg in 100 mls @ 100 mls/hr 03/06/18 02:00 03/08/18 11:27 Flagyl 500mg Premixed Ivpb - IVPB 100 mls/hr Q8H-IV KONRAD Administration Lactated Ringer's 1,000 ml in 1,000 mls @ 50 mls/hr 03/05/18 21:30 03/08/18 03:37 Lactated Ringers Solution IV 50 mls/hr ASDIR KONRAD Administration Metoprolol Succinate 50 mg 03/06/18 10:00 03/08/18 11:27 Toprol Xl - PO 50 mg DAILY KONRAD Administration Ondansetron HCl 4 mg 03/05/18 18:42 Zofran Injection IVPUSH Q6H PRN NAUSEA AND/OR VOMITING Pantoprazole Sodium 40 mg 03/06/18 10:00 03/08/18 11:27 Protonix Iv IVPUSH 40 mg DAILY KONRAD Administration Promethazine HCl 12.5 mg 03/05/18 18:42 Phenergan Injection - IVPB Q6H PRN NAUSEA-FOR RESCUE AFTER 15 MIN Ramipril 5 mg 03/06/18 10:00 03/08/18 11:28 Altace - PO 5 mg DAILY KONRAD Administration CBC, BMP 03/08/18 05:20 03/08/18 05:20 EKG: sinus with PVCs and PACs Tele: sinus echo 07/2015: nl lv/rv, mod tr, mild-mod ar, nl rvsp, mod ao root dil mibi 07/2015: nl mpi Assessment/Plan Chest pain, abnormal EKG, PVCs and PACs - neg trops this admission, now chest pain free - no ischemic changes on EKG - recent echo with nl lvef and recent nuclear stress test unremarkable - PACs and PVCs noted on tele and EKG, no h/o palps, on bb - history of chest pain/abd pain most likely in setting of pancreatitis/ cholecystitis Pancreatitis, cholecystitis - GI and surgery following, planned cholecystectomy next week - no cardiac contraindications to planned cholecystectomy HTN -cont current meds HLD - holding statin in setting of elevated LFTs dc tele
--- NOTE | 2018-03-08 12:22 | PN ---
Physical Exam: SUBJECTIVE: Patient seen and examined at bedside. No complaints at this time. Per nurse, echo done but not read. OBJECTIVE: Vital Signs Period Temp Pulse Resp BP Sys/Mcbride Pulse Ox Last 24 Hr 97.7 F-98.2 F 65-74 18-20 103-145/68-90 95 Gen: NAD, sitting in bed HEENT: NCAT, EOMI Neck: supple, no jvd Cardio: rrr, normal s1s2, no mrg Pulm: cta b/l Abd: nondistended, soft nontender ext: no edema, 2+ pulses Laboratory Results - last 24 hr 03/07/18 03/08/18 03/08/18 14:50 05:20 05:20 WBC 6.7 RBC 4.04 Hgb 13.0 Hct 38.8 MCV 96.2 H MCH 32.3 MCHC 33.6 RDW 12.9 Plt Count 204 MPV 10.5 Absolute Neuts (auto) 4.6 Neutrophils % 69.0 Lymphocytes % 18.2 Monocytes % 9.4 Eosinophils % 2.9 Basophils % 0.5 Nucleated RBC % 0 Sodium 137 Potassium 3.6 Chloride 101 Carbon Dioxide 28 Anion Gap 8 BUN 8 Creatinine 0.6 Creat Clearance w eGFR > 60 Random Glucose 97 Calcium 7.6 L Total Bilirubin 1.2 H Direct Bilirubin 0.8 H AST 61 H ALT 58 Alkaline Phosphatase 191 H Troponin I < 0.02 Total Protein 5.4 L Albumin 2.4 L Active Medications Generic Name Dose Route Start Last Admin Trade Name Freq PRN Reason Stop Dose Admin Fentanyl 50 mcg 03/05/18 18:42 Sublimaze Injection - IVPUSH [id number] PRN PAIN-PACU ORDER X 4 DOSES ONLY Finasteride 5 mg 03/06/18 10:00 03/08/18 11:27 Proscar - PO 5 mg DAILY KONRAD Administration Ampicillin Sodium/Sulbactam 100 mls @ 200 mls/hr 03/06/18 02:00 03/08/18 11: 27 Sodium 1.5 gm/ Sodium Chloride IVPB 200 mls/hr Q8H-IV KONRAD Administration Metronidazole 500 mg in 100 mls @ 100 mls/hr 03/06/18 02:00 03/08/18 11:27 Flagyl 500mg Premixed Ivpb - IVPB 100 mls/hr Q8H-IV KON[facility] Administration Lactated Ringer's 1,000 ml in 1,000 mls @ 50 mls/hr 03/05/18 21:30 03/08/18 03:37 Lactated Ringers Solution IV 50 mls/hr ASDIR KONRAD Administration Metoprolol Succinate 50 mg 03/06/18 10:00 03/08/18 11:27 Toprol Xl - PO 50 mg DAILY KON[facility] Administration Ondansetron HCl 4 mg 03/05/18 18:42 Zofran Injection IVPUSH Q6H PRN NAUSEA AND/OR VOMITING Pantoprazole Sodium 40 mg 03/06/18 10:00 03/08/18 11:27 Protonix Iv IVPUSH 40 mg DAILY [facility]ON[facility] Administration Promethazine HCl 12.5 mg 03/05/18 18:42 Phenergan Injection - IVPB Q6H PRN NAUSEA-FOR RESCUE AFTER 15 MIN Ramipril 5 mg 03/06/18 10:00 03/08/18 11:28 Altace - PO 5 mg DAILY KONRAD Administration ASSESSMENT/PLAN: An 82 y.o. M w/ PMHx. of HTN, HLD, BPH, present to the ED with abdominal pain, nausea and vomiting, admitted for acute pancreatitis 2/2 cholecystitis. #Acute pancreatitis likely 2/2 cholecystitis -identified on imaging: u/s & CT -MRCP: cholelithiasis, distal choledocolithiasis, 8mm pancreatic tail lipoma, acute pancreatitis w/o ductal involvement or necrosis, trace b/l pleural effusions, f/u MRI in 1 year. -Surgery on board (Dr. Domingo) CCY planned for Friday03/09/18. -ERCP done emergently d/t concerns of developing cholangitis, stent (7 FR-4 cm length) was placed. -c/w LR @ 50 -NPO afer midnight -Morphine PRN -Transaminitis likely 2/2 cholecystitis and pancreatitis - resolving #HTN c/w Lopressor 50mg c/w Ramipril 5mg #HLD -Pt. no longer on statins -f/u after resolution of pancreatitis if statins should be restarted -Trigs wnl #BPH -d/c flomax -resumed Finasteride 5mg #F/E/N -LR -monitor electrolytes, replete as needed -Regular diet #PPx -DVT d/c Hep SQ b/c of sphincterotomy during 1st ERCP -GI c/w Protonix 40mg #Dispo -Tele Joby Armstrong MD PGY-2 IM Visit type - Emergency Visit Emergency Visit: No - New Patient This patient is new to me today: Yes Date on this admission: 03/08/18 - Critical Care Critical Care patient: No - Discharge Referral Referred to [facility] No
--- NOTE | 2018-03-08 12:22 | PN ---
Teaching Attending Note Name of Resident: Joby Armstrong ATTENDING PHYSICIAN STATEMENT I saw and evaluated the patient. I reviewed the resident's note and discussed the case with the resident. I agree with the resident's findings and plan as documented. SUBJECTIVE: Patient is comfortable with no acute distress, no nausea or vomiting. OBJECTIVE: Vital Signs Temperature 98.2 F 03/08/18 06:10 Pulse Rate 65 03/08/18 08:15 Respiratory Rate 18 03/08/18 08:15 Blood Pressure 135/77 03/08/18 08:15 O2 Sat by Pulse Oximetry (%) 95 03/07/18 20:20 GENERAL: The patient is awake, alert, and fully oriented, in no acute distress. EYES: sclera anicteric, conjunctiva clear. ENT: Ears normal, moist mucous membranes LUNGS: Breath sounds equal, clear to auscultation bilaterally, no wheezes, no crackles, no accessory muscle use. HEART: Regular rate and rhythm, S1, S2 without murmur ABDOMEN: Soft, nontender, nondistended, normoactive bowel sounds, no guarding, no rebound EXTREMITIES: 2+ dorsal pedal pulses, warm, no calf tenderness, well-perfused, no edema. NEUROLOGICAL: Normal speech, gait not observed. PSYCH: Normal mood, normal affect. SKIN: Warm, dry, normal turgor CBCD WBC 6.7 K/mm3 (4.0-10.0) 03/08/18 05:20 RBC 4.04 M/mm3 (4.00-5.60) 03/08/18 05:20 Hgb 13.0 GM/dL (11.7-16.9) 03/08/18 05:20 Hct 38.8 % (35.4-49) 03/08/18 05:20 MCV 96.2 fl (80-96) H 03/08/18 05:20 MCHC 33.6 g/dl (32.0-35.9) 03/08/18 05:20 RDW 12.9 % (11.9-15.9) 03/08/18 05:20 Plt Count 204 K/MM3 (134-434) 03/08/18 05:20 MPV 10.5 fl (7.5-11.1) 03/08/18 05:20 CMP Sodium 137 mmol/L (136-145) 03/08/18 05:20 Potassium 3.6 mmol/L (3.5-5.1) 03/08/18 05:20 Chloride 101 mmol/L (98-107) 03/08/18 05:20 Carbon Dioxide 28 mmol/L (21-32) 03/08/18 05:20 Anion Gap 8 MMOL/L (8-16) 03/08/18 05:20 BUN 8 mg/dL (7-18) 03/08/18 05:20 Creatinine 0.6 mg/dL (0.55-1.3) 03/08/18 05:20 Creat Clearance w eGFR > 60 (>60) 03/08/18 05:20 Random Glucose 97 mg/dL (74-106) 03/08/18 05:20 Calcium 7.6 mg/dL (8.5-10.1) L 03/08/18 05:20 Total Bilirubin 1.2 mg/dL (0.2-1) H 03/08/18 05:20 AST 61 U/L (15-37) H 03/08/18 05:20 ALT 58 U/L (13-61) 03/08/18 05:20 Alkaline Phosphatase 191 U/L (45-117) H 03/08/18 05:20 Total Protein 5.4 g/dl (6.4-8.2) L 03/08/18 05:20 Albumin 2.4 g/dl (3.4-5.0) L 03/08/18 05:20 CARDIAC ENZYMES Creatine Kinase 30 IU/L (26-308) 03/07/18 09:30 Troponin I < 0.02 ng/ml (0.00-0.05) 03/07/18 14:50 Current Medications Generic Name Dose Route Start Last Admin Trade Name Freq PRN Reason Stop Dose Admin Fentanyl 50 mcg 03/05/18 18:42 Sublimaze Injection - IVPUSH [id number] PRN PAIN-PACU ORDER X 4 DOSES ONLY Finasteride 5 mg 03/06/18 10:00 03/08/18 11:27 Proscar - PO 5 mg DAILY KONRAD Administration Ampicillin Sodium/Sulbactam 100 mls @ 200 mls/hr 03/06/18 02:00 03/08/18 11: 27 Sodium 1.5 gm/ Sodium Chloride IVPB 200 mls/hr Q8H-IV KONRAD Administration Metronidazole 500 mg in 100 mls @ 100 mls/hr 03/06/18 02:00 03/08/18 11:27 Flagyl 500mg Premixed Ivpb - IVPB 100 mls/hr Q8H-IV KONRAD Administration Lactated Ringer's 1,000 ml in 1,000 mls @ 50 mls/hr 03/05/18 21:30 03/08/18 03:37 Lactated Ringers Solution IV 50 mls/hr ASDIR KONRAD Administration Metoprolol Succinate 50 mg 03/06/18 10:00 03/08/18 11:27 Toprol Xl - PO 50 mg DAILY KONRAD Administration Ondansetron HCl 4 mg 03/05/18 18:42 Zofran Injection IVPUSH Q6H PRN NAUSEA AND/OR VOMITING Pantoprazole Sodium 40 mg 03/06/18 10:00 03/08/18 11:27 Protonix Iv IVPUSH 40 mg DAILY KONRAD Administration Promethazine HCl 12.5 mg 03/05/18 18:42 Phenergan Injection - IVPB Q6H PRN NAUSEA-FOR RESCUE AFTER 15 MIN Ramipril 5 mg 03/06/18 10:00 03/08/18 11:28 Altace - PO 5 mg DAILY KONRAD Administration Home Medications Medication Instructions Recorded Ramipril 5 mg PO DAILY 02/03/14 Metoprolol Succinate 50 mg PO DAILY 03/01/18 Finasteride [Proscar -] 5 mg PO DAILY 03/02/18 ASSESSMENT AND PLAN: Patient is a 82 y/o man with h/o HTN, HLP, and BPH who presented with abdominal pain and was found to have acute pancreatitis with transaminitis . # Acute gallstone pancreatitis: s/p MRCP positive for choledocolithiasis , s/ p ERCP x2 , 2 stones were found that had moved from GB, 1 was in the CBD- removed, 1 in the left hepatic duct was unable to be removed, therefore stent ( 7 FR-4 cm length) was placed. CCY is scheduled for Friday. # Acute Transaminitis trending down. # Acute cholecystitis : s/p MRCP; cont Abx ( Flagyl, Unasyn ), CCY for Friday by # HTN : cont meds continue Altace, Toprol Xl DVT Px: SCDs
--- NOTE | 2018-03-08 19:07 | EKG ---
Test Reason : Blood Pressure : / mmHG Vent. Rate : 106 BPM Atrial Rate : 277 BPM P-R Int : 000 ms QRS Dur : 084 ms QT Int : 370 ms P-R-T Axes : 000 -18 -06 degrees QTc Int : 491 ms ATRIAL FIBRILLATION WITH RAPID VENTRICULAR RESPONSE WITH PREMATURE VENTRICULAR OR ABERRANTLY CONDUCTED COMPLEXES NONSPECIFIC T WAVE ABNORMALITY ABNORMAL ECG WHEN COMPARED WITH ECG OF 07-MAR-2018 01:52, NO SIGNIFICANT CHANGE WAS FOUND Confirmed by ABDIAS SHEPHERD, MARIBEL ([id number]) on 03/08/2018 7:07:06 PM Referred By: Poncho QUINTANILLA Confirmed By:MARIBEL CALERO MD
--- NOTE | 2018-03-08 19:08 | EKG ---
Test Reason : Blood Pressure : / mmHG Vent. Rate : 093 BPM Atrial Rate : 267 BPM P-R Int : 000 ms QRS Dur : 082 ms QT Int : 384 ms P-R-T Axes : 000 -15 008 degrees QTc Int : 477 ms ATRIAL FIBRILLATION ABNORMAL ECG WHEN COMPARED WITH ECG OF 05-MAR-2018 18:05, ATRIAL FIBRILLATION HAS REPLACED SINUS RHYTHM Confirmed by MARIBEL CALERO MD ([id number]) on 03/08/2018 7:07:57 PM Referred By: Confirmed By:MARIBEL CALERO MD
--- NOTE | 2018-03-08 19:21 | EKG ---
Test Reason : Blood Pressure : / mmHG Vent. Rate : 081 BPM Atrial Rate : 081 BPM P-R Int : 190 ms QRS Dur : 084 ms QT Int : 392 ms P-R-T Axes : 036 -18 008 degrees QTc Int : 455 ms SINUS RHYTHM WITH OCCASIONAL PREMATURE VENTRICULAR COMPLEXES AND PREMATURE ATRIAL COMPLEXES OTHERWISE NORMAL ECG WHEN COMPARED WITH ECG OF 04-MAR-2018 22:55, NO SIGNIFICANT CHANGE WAS FOUND Confirmed by ABDIAS SHEPHERD, MARIBEL ([id number]) on 03/08/2018 7:21:21 PM Referred By: Confirmed By:MARIBEL CALERO MD
[2018-03-09] MEDS ORDERED: SODIUM CHLORIDE 100 ML IVPB ONE ×2 (02:51→07:57)
[2018-03-09] MEDS ORDERED: AMPICILLIN NA/SULBACTAM NA 1.5 GM VIAL ONE ×2 (02:51→07:57)
[2018-03-09] MEDS: AMPICILLIN NA/SULBACTAM NA 1.5 GM in SODIUM CHLORIDE 100 ML IVPB SCH ×2 (03:02→09:32)
[2018-03-09 06:58] LABS: BASO % 0.6 % (0-2.0); EOS % 2.8 % (0-4.5); HEMATOCRIT 39.1 % (35.4-49); HEMOGLOBIN 13.1 GM/dL (11.7-16.9); LYMPH % 18.4 % (8-40); MCH 32.5 pg (25.7-33.7); MCHC 33.6 g/dl (32.0-35.9); MEAN CELL VOLUME 96.7 fl (80-96); MEAN PLT VOLUME 10.5 fl (7.5-11.1); MONO % 9.4 % (3.8-10.2); NEUT % 68.8 % (42.8-82.8); PLATELET COUNT 211 K/MM3 (134-434); RBC 4.04 M/mm3 (4.00-5.60); RDW 13.2 % (11.9-15.9); WHITE BLOOD COUNT 7.1 K/mm3 (4.0-10.0)
[2018-03-09 07:01] LABS: ALBUMIN 2.4 g/dl (3.4-5.0); ALK PHOS 176 U/L (45-117); ANION GAP 7 MMOL/L (8-16); BILIRUBIN,DIRECT 0.7 mg/dL (0.0-0.2); BILIRUBIN,TOTAL 1.1 mg/dL (0.2-1); BLOOD UREA NITROGEN 7 mg/dL (7-18); CALCIUM 7.6 mg/dL (8.5-10.1); CHLORIDE 102 mmol/L (98-107); CO2 28 mmol/L (21-32); CREATININE 0.5 mg/dL (0.55-1.3); GLUCOSE,RANDOM 100 mg/dL (74-106); MAGNESIUM 1.8 mg/dL (1.8-2.4); POTASSIUM 3.6 mmol/L (3.5-5.1); SGOT/AST 74 U/L (15-37); SGPT/ALT 60 U/L (13-61); SODIUM 138 mmol/L (136-145); TOT PROT 5.6 g/dl (6.4-8.2)
--- NOTE | 2018-03-09 09:29 | PN ---
Progress Note, Physician - Current Medication List Current Medications: Active Medications Fentanyl (Sublimaze Injection -) 50 mcg IVPUSH [id number] PRN PRN Reason: PAIN-PACU ORDER X 4 DOSES ONLY Finasteride (Proscar -) 5 mg PO DAILY [facility] Last Admin: 03/08/18 11:27 Dose: 5 mg Ampicillin Sodium/Sulbactam (Sodium 1.5 gm/ Sodium Chloride) 100 mls @ 200 mls/ hr IVPB Q8H-IV [facility] Last Admin: 03/09/18 03:02 Dose: 200 mls/hr Metronidazole (Flagyl 500mg Premixed Ivpb -) 500 mg in 100 mls @ 100 mls/hr IVPB Q8H-IV [facility] Last Admin: 03/09/18 03:02 Dose: 100 mls/hr Lactated Ringer's (Lactated Ringers Solution) 1,000 ml in 1,000 mls @ 50 mls/ hr IV ASDIR [facility] Last Admin: 03/08/18 21:00 Dose: 50 mls/hr Metoprolol Succinate (Toprol Xl -) 50 mg PO DAILY [facility] Last Admin: 03/08/18 11:27 Dose: 50 mg Ondansetron HCl (Zofran Injection) 4 mg IVPUSH Q6H PRN PRN Reason: NAUSEA AND/OR VOMITING Pantoprazole Sodium (Protonix Iv) 40 mg IVPUSH DAILY [facility] Last Admin: 03/08/18 11:27 Dose: 40 mg Promethazine HCl (Phenergan Injection -) 12.5 mg IVPB Q6H PRN PRN Reason: NAUSEA-FOR RESCUE AFTER 15 MIN Ramipril (Altace -) 5 mg PO DAILY [facility] Last Admin: 03/08/18 11:28 Dose: 5 mg - Objective Vital Signs: Vital Signs Temperature 98.1 F 03/09/18 08:31 Pulse Rate 69 03/09/18 08:31 Respiratory Rate 20 03/09/18 08:31 Blood Pressure 139/87 03/09/18 08:31 O2 Sat by Pulse Oximetry (%) 96 03/09/18 08:31 Labs: CBC, BMP 03/09/18 05:30 03/09/18 05:30 INR, PTT INR 1.31 (0.83-1.09) H 03/06/18 06:15 Assessment/Plan EKG: sinus with PVCs and PACs echo 07/2015: nl lv/rv, mod tr, mild-mod ar, nl rvsp, mod ao root dil mibi 07/2015: nl mpi Assessment/Plan Chest pain, abnormal EKG, PVCs and PACs on telemetry: - neg trops this admission, now chest pain free - no ischemic changes on EKG - history of chest pain/abd pain most likely sec to pancreatitis/cholecystitis-- observe Pancreatitis, cholecystitis - GI and surgery following, planned cholecystectomy next week - no cardiac contraindications to planned cholecystectomy HTN -controlled -cont current meds HLD - holding statin in setting of elevated LFTs
[2018-03-09] MEDS: PANTOPRAZOLE SODIUM 40 MG VIAL IVPUSH SCH (09:31)
[2018-03-09] MEDS: RAMIPRIL 5 MG CAPSULE (FP) PO SCH (09:32)
[2018-03-09] MEDS: FINASTERIDE 5 MG TABLET (FP) PO SCH (09:32)
--- NOTE | 2018-03-09 09:34 | PN ---
Progress Note (short form) - Note Progress Note: Attending Surgeon No c/o VSS AF abdo-benign labs/ongoing w/u to date reviewed IMP: resolved gallstone pancreatitis; gallstone pancreatitis s/p ERCP and related procedures; cholelithiasis PLAN: lap marcy possible open today; r/b/t/a's d/w the patient in Indonesian and informed consent obtained. Montrell Lucio> Chayo SHEPHERD FACS
[2018-03-09] MEDS ORDERED: metroNIDAZOLE 250 MG/50 ML PREMIX BAG IVPB ONE (10:32)
[2018-03-09] MEDS ORDERED: PROPOFOL 20 ML ONE (10:47)
[2018-03-09] MEDS ORDERED: ROCURONIUM BROMIDE 50 MG/5 ML VIAL ONE (10:47)
[2018-03-09] MEDS ORDERED: MIDAZOLAM HCL 2 MG/2 ML SINGLE DOSE VIAL ONE (10:47)
[2018-03-09] MEDS ORDERED: fentaNYL CITRATE 250 MCG/5 ML VIAL ONE (10:47)
[2018-03-09] MEDS ORDERED: BUPIVACAINE HCL/PF 0.5% (5MG/ML) 10 ML VIAL ONE (11:10)
[2018-03-09] MEDS ORDERED: ePHEDrine SULFATE 50 MG/1 ML AMPULE ONE (11:36)
[2018-03-09] MEDS ORDERED: METOPROLOL TARTRATE 5 MG/5 ML VIAL ONE (11:53)
[2018-03-09] MEDS ORDERED: ENALAPRILAT DIHYDRATE 2.5 MG/2 ML VIAL IVPB ONE (12:33)
[2018-03-09] MEDS ORDERED: LABETALOL HCL 5 MG/1 ML (100MG/20 ML VIAL) ONE (12:34)
[2018-03-09] MEDS ORDERED: BUPIVACAINE HCL/PF (5 MG/ML) 30 ML VIAL IJ ONE (12:36)
[2018-03-09] MEDS ORDERED: NEOSTIGMINE METHYLSULFATE 0.5 MG/ML - 10 ML MDV ONE (12:49)
[2018-03-09] MEDS ORDERED: GLYCOPYRROLATE 0.2 MG/1 ML VIAL ONE (12:50)
--- NOTE | 2018-03-09 12:50 | OP ---
Operative Note - Note: Operative Date: 03/09/18 Pre-Operative Diagnosis: gallstone pancreatitis/cholelithiasis/ choledocholithiasis Operation: laparoscopic cholecystectomy Surgeon: Montrell Domingo Teacher Private: Joi Yoo Anesthesiologist/PREP MANAGER: Belem Odell Anesthesia: General Specimens Removed: gallbladder and contents Estimated Blood Loss (mls): 25
[2018-03-09] MEDS ORDERED: ONDANSETRON 4 MG/2 ML VIAL IVPUSH PRN ×2 (13:07→13:15)
[2018-03-09] MEDS ORDERED: PROMETHAZINE HCL 25 MG/1 ML VIAL IVPB PRN ×2 (13:07→15:52)
[2018-03-09] MEDS ORDERED: oxyCODONE HCL 5 MG TABLET PO PRN (13:07)
--- NOTE | 2018-03-09 13:14 | SURG ---
Surgery Tack Puller Note Tack Puller: Joi Yoo PA-C (Suzy) Date of Service: 03/09/18 Diagnosis: gallstone pancreatitis/cholelithiasis/choledocholithiasis Procedure: laparoscopic cholecystectomy I was present for the entirety of the operative procedure. For further detail, please refer to operative report. Visit type - Case Type Case Type: Scheduled - Emergency Emergency Visit: No - New patient This patient is new to me today: Yes Date on this admission: 03/09/18 - Critical Care Critical Care patient: No
[2018-03-09] MEDS ORDERED: LACTATED RINGERS SOLUTION 1,000 ML IV SCH (13:15)
[2018-03-09] MEDS: LACTATED RINGERS SOLUTION 1,000 ML/1,000 ML INFUS.BAG IV SCH (13:22)
[2018-03-09] MEDS ORDERED: PROMETHAZINE HCL 25 MG/1 ML VIAL ONE (14:04)
--- NOTE | 2018-03-09 14:10 | PN ---
Physical Exam: SUBJECTIVE: Patient seen and examined. No acute events overnight. Pt. denies any complaints. Pt. is NPO for CCY planned for today. OBJECTIVE: Vital Signs Period Temp Pulse Resp BP Sys/Mcbride Pulse Ox Last 24 Hr 98.1 F-98.8 F 69-74 18-20 125-157/76-92 96-97 GENERAL: The patient is awake, alert, and fully oriented, in no acute distress, decreased jaundice. EYES: sclera anicteric, conjunctiva clear. No ptosis. ENT: Ears normal, nares patent, oropharynx clear without exudates, moist mucous membranes. LUNGS: Breath sounds equal, clear to auscultation bilaterally, no wheezes, no crackles, no accessory muscle use. HEART: Iregular rate and rhythm, S1, S2 ABDOMEN: Soft, nontender, nondistended, hyperactive bowel sounds, no guarding, no rebound, no hepatomegaly EXTREMITIES: 2+ dorsal pedal pulses, warm, well-perfused, no calf tenderness, no edema. NEUROLOGICAL: Normal speech, gait not observed. PSYCH: Normal mood, normal affect. SKIN: Warm, dry, normal turgor, no rashes or lesions noted Laboratory Results - last 24 hr 03/09/18 03/09/18 05:30 05:30 WBC 7.1 RBC 4.04 Hgb 13.1 Hct 39.1 MCV 96.7 H MCH 32.5 MCHC 33.6 RDW 13.2 Plt Count 211 MPV 10.5 Absolute Neuts (auto) 4.9 Neutrophils % 68.8 Lymphocytes % 18.4 Monocytes % 9.4 Eosinophils % 2.8 Basophils % 0.6 Nucleated RBC % 0 Sodium 138 Potassium 3.6 Chloride 102 Carbon Dioxide 28 Anion Gap 7 L BUN 7 Creatinine 0.5 L Creat Clearance w eGFR > 60 Random Glucose 100 Calcium 7.6 L Magnesium 1.8 Total Bilirubin 1.1 H Direct Bilirubin 0.7 H AST 74 H ALT 60 Alkaline Phosphatase 176 H Total Protein 5.6 L Albumin 2.4 L Active Medications Current Medications Docusate Sodium (Colace -) 100 mg PO BID KONRAD Fentanyl (Sublimaze Injection -) 50 mcg IVPUSH [id number] PRN PRN Reason: PAIN-PACU ORDER X 4 DOSES ONLY Finasteride (Proscar -) 5 mg PO DAILY KONRAD Lactated Ringer's (Lactated Ringers Solution) 1,000 ml in 1,000 mls @ 50 mls/ hr IV ASDIR KONRAD Metoprolol Succinate (Toprol Xl -) 50 mg PO DAILY KONRAD Ondansetron HCl (Zofran Injection) 4 mg IVPUSH Q6H PRN PRN Reason: NAUSEA AND/OR VOMITING Ondansetron HCl (Zofran Injection) 4 mg IVPUSH Q6H PRN PRN Reason: NAUSEA AND/OR VOMITING Oxycodone HCl (Roxicodone -) 5 mg PO Q4H PRN PRN Reason: PAIN LEVEL 1-5 Pantoprazole Sodium (Protonix Iv) 40 mg IVPUSH DAILY KONRAD Ramipril (Altace -) 5 mg PO DAILY [facility] Home Medications Medication Instructions Recorded Ramipril 5 mg PO DAILY 02/03/14 Metoprolol Succinate 50 mg PO DAILY 03/01/18 Finasteride [Proscar -] 5 mg PO DAILY 03/02/18 ASSESSMENT/PLAN: An 82 y.o. M w/ PMHx. of HTN, HLD, BPH, present to the ED with abdominal pain, nausea and vomiting, admitted for acute pancreatitis 2/2 cholecystitis. #Gastroenterology -Acute pancreatitis likely 2/[address]: showed fat stranding consistent with pancreatitis Abd US: thick walled gallbladder w/ stones and diffuse fatty liver infiltrates MRCP: cholelithiasis, distal choledocolithiasis, 8mm pancreatic tail lipoma, acute pancreatitis w/o ductal involvement or necrosis, trace b/l pleural effusions, f/u MRI in 1 year. Surgery on board (Dr. Domingo) CCY planned for Friday03/09/18. 2nd ERCP done emergently d/t concerns of developing cholangitis 1st ERCP: removed fragments of stones, s/p sphincterotomy; On Rpt. ERCP: 2 stones found that had moved from GB, 1 was in the CBD- removed, 1 in the left hepatic duct was unable to be removed, therefore stent (7 FR-4 cm length) was placed. c/w LR @ 125 NPO afer midnight Morphine PRN Lipase > 30k on admission now resolved. -Transaminitis likely 2/2 cholecystitis and pancreatitis LFTs and bilirubin up trending s/p ERCP trend LFTs Abd US as noted above c/w IVF #Cardiology -HTN c/w Lopressor 50mg c/w Ramipril 5mg -HLD Pt. no longer on statins f/u after resolution of pancreatitis if statins should be restarted Trigs wnl #Urology -BPH d/c flomax resumed Finasteride 5mg #F/E/N -decreased LR to 50ml/hr -monitor electrolytes, replete as needed -Regular diet #PPx -DVT d/c Hep SQ b/c of sphincterotomy during 1st ERCP, will discuss with cardio about when to restart anticoagulation -GI c/w Protonix 40mg Visit type - Emergency Visit Emergency Visit: Yes ED Registration Date: 02/28/18 Care time: The patient presented to the Emergency Department on the above date and was hospitalized for further evaluation of their emergent condition. - New Patient This patient is new to me today: No - Critical Care Critical Care patient: No - Discharge Referral Referred to [facility] Med P.C.: No
--- NOTE | 2018-03-09 15:53 | PN ---
Progress Note (short form) - Note Progress Note: s: feels well, no cp sob palps dizzy. s/p cholecystectomy today o: Vital Signs Period Temp Pulse Resp BP Sys/Mcbride Pulse Ox Last 24 Hr 98.1 F-98.8 F 61-74 14-20 125-162/73-92 96-100 Constitutional: Yes: Well Nourished, No Distress, Calm Neck: Yes: Supple, Trachea Midline Respiratory: Yes: Regular, CTA Bilaterally Gastrointestinal: Yes: Normal Bowel Sounds, Soft Cardiovascular: Yes: Regular Rate and Rhythm JVD: No Heart Sounds: Yes: S1, S2 Edema: No Peripheral Pulses: 2+ Left Doralis Pedis, 2+ Right Dorsalis Pedis Integumentary: No: Erythema jaundice diaphoresis Neurological: Yes: Alert, Oriented Psychiatric: Yes: Alert, Oriented Current Medications Docusate Sodium (Colace -) 100 mg PO BID [facility] Fentanyl (Sublimaze Injection -) 50 mcg IVPUSH [id number] PRN PRN Reason: PAIN-PACU ORDER X 4 DOSES ONLY Last Admin: 03/09/18 13:53 Dose: 50 mcg Finasteride (Proscar -) 5 mg PO DAILY [facility] Lactated Ringer's (Lactated Ringers Solution) 1,000 ml in 1,000 mls @ 50 mls/ hr IV ASDIR KON[facility] Metoprolol Succinate (Toprol Xl -) 50 mg PO DAILY [facility] Ondansetron HCl (Zofran Injection) 4 mg IVPUSH Q6H PRN PRN Reason: NAUSEA AND/OR VOMITING Ondansetron HCl (Zofran Injection) 4 mg IVPUSH Q6H PRN PRN Reason: NAUSEA AND/OR VOMITING Oxycodone HCl (Roxicodone -) 5 mg PO Q4H PRN PRN Reason: PAIN LEVEL 1-5 Pantoprazole Sodium (Protonix Iv) 40 mg IVPUSH DAILY [facility] Ramipril (Altace -) 5 mg PO DAILY [facility] EKG: sinus with PVCs and PACs echo 07/2015: nl lv/rv, mod tr, mild-mod ar, nl rvsp, mod ao root dil mibi 07/2015: nl mpi Assessment/Plan Chest pain, abnormal EKG, PVCs and PACs - neg trops this admission, now chest pain free - no ischemic changes on EKG - recent echo with nl lvef and recent nuclear stress test unremarkable - PACs and PVCs noted on tele and EKG, no h/o palps, on bb - history of chest pain/abd pain most likely in setting of pancreatitis/ cholecystitis, now s/p cholecystectomy Pancreatitis, cholecystitis - GI and surgery following, s/p cholecystectomy HTN -cont current meds HLD - holding statin in setting of elevated LFTs
--- NOTE | 2018-03-09 20:02 | PN ---
Teaching Attending Note Name of Resident: Wes Stearns ATTENDING PHYSICIAN STATEMENT I saw and evaluated the patient. I reviewed the resident's note and discussed the case with the resident. I agree with the resident's findings and plan as documented. SUBJECTIVE: pATIENT IS GOING FOR SX TODAY . OBJECTIVE: Vital Signs Temperature 98.1 F 03/09/18 15:05 Pulse Rate 68 03/09/18 15:05 Respiratory Rate 18 03/09/18 15:05 Blood Pressure 153/85 03/09/18 15:05 O2 Sat by Pulse Oximetry (%) 98 03/09/18 15:05 CBCD WBC 7.1 K/mm3 (4.0-10.0) 03/09/18 05:30 RBC 4.04 M/mm3 (4.00-5.60) 03/09/18 05:30 Hgb 13.1 GM/dL (11.7-16.9) 03/09/18 05:30 Hct 39.1 % (35.4-49) 03/09/18 05:30 MCV 96.7 fl (80-96) H 03/09/18 05:30 MCHC 33.6 g/dl (32.0-35.9) 03/09/18 05:30 RDW 13.2 % (11.9-15.9) 03/09/18 05:30 Plt Count 211 K/MM3 (134-434) 03/09/18 05:30 MPV 10.5 fl (7.5-11.1) 03/09/18 05:30 GENERAL: The patient is awake, alert, and fully oriented, in no acute distress. EYES: sclera anicteric, conjunctiva clear. ENT: Ears normal, moist mucous membranes LUNGS: Breath sounds equal, clear to auscultation bilaterally, no wheezes, no crackles, no accessory muscle use. HEART: Regular rate and rhythm, S1, S2 without murmur ABDOMEN: Soft, nontender, nondistended, normoactive bowel sounds, no guarding, no rebound EXTREMITIES: 2+ dorsal pedal pulses, warm, no calf tenderness, well-perfused, no edema. NEUROLOGICAL: Normal speech, gait not observed. PSYCH: Normal mood, normal affect. SKIN: Warm, dry, normal turgor CMP Sodium 138 mmol/L (136-145) 03/09/18 05:30 Potassium 3.6 mmol/L (3.5-5.1) 03/09/18 05:30 Chloride 102 mmol/L (98-107) 03/09/18 05:30 Carbon Dioxide 28 mmol/L (21-32) 03/09/18 05:30 Anion Gap 7 MMOL/L (8-16) L 03/09/18 05:30 BUN 7 mg/dL (7-18) 03/09/18 05:30 Creatinine 0.5 mg/dL (0.55-1.3) L 03/09/18 05:30 Creat Clearance w eGFR > 60 (>60) 03/09/18 05:30 Random Glucose 100 mg/dL (74-106) 03/09/18 05:30 Calcium 7.6 mg/dL (8.5-10.1) L 03/09/18 05:30 Total Bilirubin 1.1 mg/dL (0.2-1) H 03/09/18 05:30 AST 74 U/L (15-37) H 03/09/18 05:30 ALT 60 U/L (13-61) 03/09/18 05:30 Alkaline Phosphatase 176 U/L (45-117) H 03/09/18 05:30 Total Protein 5.6 g/dl (6.4-8.2) L 03/09/18 05:30 Albumin 2.4 g/dl (3.4-5.0) L 03/09/18 05:30 CARDIAC ENZYMES Creatine Kinase 30 IU/L (26-308) 03/07/18 09:30 Troponin I < 0.02 ng/ml (0.00-0.05) 03/07/18 14:50 Current Medications Generic Name Dose Route Start Last Admin Trade Name Freq PRN Reason Stop Dose Admin Docusate Sodium 100 mg 03/09/18 22:00 Colace - PO BID KONRAD Finasteride 5 mg 03/10/18 10:00 Proscar - PO DAILY KONRAD Lactated Ringer's 1,000 ml in 1,000 mls @ 50 mls/hr 03/09/18 13:07 03/09/18 13:22 Lactated Ringers Solution IV 100 mls ASDIR KONRAD Administration Metoprolol Succinate 50 mg 03/10/18 10:00 Toprol Xl - PO DAILY KONRAD Ondansetron HCl 4 mg 03/09/18 13:07 Zofran Injection IVPUSH 03/10/18 03:00 Q6H PRN NAUSEA AND/OR VOMITING Ondansetron HCl 4 mg 03/09/18 13:15 Zofran Injection IVPUSH 03/10/18 03:00 Q6H PRN NAUSEA AND/OR VOMITING Oxycodone HCl 5 mg 03/09/18 13:07 Roxicodone - PO Q4H PRN PAIN LEVEL 1-5 Pantoprazole Sodium 40 mg 03/10/18 10:00 Protonix Iv IVPUSH DAILY [facility] Promethazine HCl 12.5 mg 03/09/18 15:52 Phenergan Injection - IVPB 03/10/18 03:00 Q6H PRN NAUSEA-FOR RESCUE AFTER 15 MIN Ramipril 5 mg 03/10/18 10:00 Altace - PO DAILY [facility] Home Medications Medication Instructions Recorded Ramipril 5 mg PO DAILY 02/03/14 Metoprolol Succinate 50 mg PO DAILY 03/01/18 Finasteride [Proscar -] 5 mg PO DAILY 03/02/18 ASSESSMENT AND PLAN: Patient is a 82 y/o man with h/o HTN, HLP, and BPH who presented with abdominal pain and was found to have acute pancreatitis with transaminitis . #pod #0 S/P lAP CHOLECYSTECTOMY DUE TO HAVING Acute gallstone pancreatitis: s/ p MRCP positive for choledocolithiasis , s/p ERCP x2 , 2 stones were found that had moved from GB, 1 was in the CBD- removed, 1 in the left hepatic duct was unable to be removed, therefore stent (7 FR-4 cm length) was placed. iNCENTIVE INSPIROMETER # Acute Transaminitis trending down. # Acute cholecystitis : s/p MRCP; cont Abx ( Flagyl, Unasyn ), S/P CCY # HTN : cont meds continue Altace, Toprol Xl DVT Px: SCDs
--- NOTE | 2018-03-09 21:26 | OP ---
DATE OF OPERATION: 03/09/2018 PREOPERATIVE DIAGNOSES: Gallstone pancreatitis, choledocholithiasis, and cholelithiasis. POSTOPERATIVE DIAGNOSES: Gallstone pancreatitis, choledocholithiasis, and cholelithiasis. PROCEDURE: Laparoscopic cholecystectomy. SURGEON: Montrell Domingo MD. APPLIANCE SERVICE SUPERVISOR: Luz Yoo PA-C ANESTHESIA: General. OPERATIVE FINDINGS: An edematous gallbladder containing multiple stones. The rest of the findings were unremarkable. DESCRIPTION OF PROCEDURE: The patient was placed on the operating table in supine position. After the induction of general anesthesia, the patient's abdomen was prepped with ChloraPrep and draped in sterile fashion. Time-out was taken and then pneumoperitoneum established above the umbilicus using a Veress needle. Once 15 mm of intra-abdominal pressure was obtained, a 5-mm port was placed at the umbilicus. Additional lateral 5-mm ports and a subxiphoid 12-mm port were placed and laparoscopy carried out, and the previously noted findings were observed. The gallbladder was placed on cephalad and lateral traction, and dissection was begun at the neck of the gallbladder where the peritoneum was opened medially and laterally using blunt and sharp dissection and electrocautery. Dissection continued in the triangle of Calot where the cystic duct was identified coursing from the neck of the gallbladder distally to the common bile duct. It was dissected proximally and distally for length. Similarly, the artery was similarly identified and dissected. A critical view of safety was taken, and then the cystic duct divided proximally and distally using Endo Fidel after it was clipped twice proximally and distally with large hemoclips. The artery was similarly clipped and divided. Hemostasis was checked for and noted to be good and then the gallbladder was removed from the liver bed in a retrograde fashion using electrocautery. Prior to removal from the edge of the liver, hemostasis was again verified and then the gallbladder removed from the edge of the liver, placed in an EndoCatch, and brought out through the subxiphoid port. Pneumoperitoneum was reestablished, hemostasis verified again, and then the 5-mm lateral and subxiphoid ports were removed under laparoscopic vision without evidence of bleeding from the port sites. The umbilical port was removed and the pneumoperitoneum evacuated. All port sites were infiltrated with 0.5% Marcaine and the skin edges closed with 4-0 Biosyn in a subcuticular and continuous fashion. Steri-Strips and Band-Aid dressings were placed and the procedure terminated at this point and the patient aroused from general anesthesia and transferred to the post anesthesia care unit in stable condition awake and alert. ESTIMATED BLOOD LOSS: 25 mL. REPLACEMENTS: Crystalloid. DRAINS: None. SPECIMEN: Gallbladder and contents to pathology. I, Montrell Domingo, was physically present in the operating room from the time the patient was placed on the operating room table until he was transferred to the post anesthesia care unit in my accompaniment. MD TAHIRA Cazares/[id number] MTDD
[2018-03-09] MEDS: DOCUSATE SODIUM 100 MG CAPSULE (FP) PO SCH (21:29)
[2018-03-10] MEDS: LACTATED RINGERS SOLUTION 1,000 ML/1,000 ML INFUS.BAG IV SCH (06:32)
--- NOTE | 2018-03-10 07:38 | PN ---
Progress Note (short form) - Note Progress Note: POD 1, s/p Laparoscopic cholecystectomy Pt seen and examined. States he is feeling well this AM. Has some discomfort/ pain at port sites. Tolerating clears, Has been oob to void. Denies cp/sob, n/v/ d, calf pain or edema. Vital Signs Temp 99 F 03/10/18 05:53 Pulse 78 03/10/18 05:53 Resp 20 03/10/18 05:53 BP 144/95 03/10/18 05:53 Pulse Ox 98 03/09/18 20:10 Intake & Output 03/09/18 03/09/18 03/10/18 11:59 23:59 11:59 Intake Total 1950 600 600 Output Total 1450 800 Balance 500 -200 600 Intake: IV 1750 300 600 LACTATED RINGERS SOLUTION 550 1,000 ml In 1,000 ml @ 50 mls/hr IV ASDIR KONRAD Rx #:[id number] LACTATED RINGERS SOLUTION 600 1,000 ml In 1,000 ml @ 50 mls/hr IV ASDIR KONRAD Rx #:[id number] IVPB 200 Oral 300 Output: Urine 1450 800 Void 1450 800 Other: Voiding Method Toilet Urinal Bowel Movement No No Gen: awake, alert, nad. Laying in bed Resp: cta b/l CV: rrr, s1s2 Abdomen: soft, minimally tender to palpation at port sites. Bandaids c/d/i, no surrounding hematoma or ecchymosis. Ext: soft, nt/nd A/P: 82 y/o M w/ PMHx HTN, HLD, BPH, admitted 02/28 after presenting with abdominal pain, nausea and vomiting, found to have acute pancreatitis 2/2 cholecystitis. Now S/P ERCP (03/03) w/ removal of stone fragments and sphincterotomy, OR cancelled 03/04 for uptrending LFTS/total Bilirubin, s/p repeat ERCP (03/04) w/ CBD stone extraction, stent placement, now s/p Laparoscopic cholecystectomy on 03/09. Doing well post op. Pain controlled. Tolerating clears. afebrile, vss. -F/U am labs -Advance diet as tolerated -Pain control -OOB -Likely home later today pending labs <Joi Yoo - Last Filed: 03/10/18 07:45> - Note Progress Note: CBC, BMP 03/10/18 06:30 03/10/18 06:30 Hepatic Panel Total Bilirubin 1.5 mg/dL (0.2-1) H 03/10/18 06:30 Direct Bilirubin 0.7 mg/dL (0.0-0.2) H 03/10/18 06:30 AST 77 U/L (15-37) H 03/10/18 06:30 ALT 63 U/L (13-61) H 03/10/18 06:30 Alkaline Phosphatase 163 U/L (45-117) H 03/10/18 06:30 Albumin 2.5 g/dl (3.4-5.0) L 03/10/18 06:30 Cleared for dc from a surgical standpoint. General surgery signing off. On behalf of Dr. Domingo, thank you for the opportunity to participate in your patient's care <Carlos Enrique Smith P - Last Filed: 03/10/18 10:34>
[2018-03-10 07:48] LABS: BASO % 0.5 % (0-2.0); EOS % 2.1 % (0-4.5); HEMATOCRIT 39.3 % (35.4-49); LYMPH % 11.6 % (8-40); MCHC 33.2 g/dl (32.0-35.9); MEAN CELL VOLUME 96.4 fl (80-96); MEAN PLT VOLUME 10.6 fl (7.5-11.1); MONO % 8.7 % (3.8-10.2); NEUT % 77.1 % (42.8-82.8); PLATELET COUNT 225 K/MM3 (134-434); RBC 4.07 M/mm3 (4.00-5.60); RDW 13.2 % (11.9-15.9); WHITE BLOOD COUNT 9.2 K/mm3 (4.0-10.0)
[2018-03-10 08:00] LABS: ALBUMIN 2.5 g/dl (3.4-5.0); ALK PHOS 163 U/L (45-117); ANION GAP 6 MMOL/L (8-16); BILIRUBIN,TOTAL 1.5 mg/dL (0.2-1); BLOOD UREA NITROGEN 5 mg/dL (7-18); CALCIUM 8.1 mg/dL (8.5-10.1); CHLORIDE 99 mmol/L (98-107); CO2 29 mmol/L (21-32); CREATININE 0.6 mg/dL (0.55-1.3); GLUCOSE,RANDOM 109 mg/dL (74-106); MAGNESIUM 1.9 mg/dL (1.8-2.4); PHOSPHOROUS 3.5 mg/dL (2.5-4.9); POTASSIUM 3.7 mmol/L (3.5-5.1); SGOT/AST 77 U/L (15-37); SGPT/ALT 63 U/L (13-61); SODIUM 134 mmol/L (136-145); TOT PROT 5.8 g/dl (6.4-8.2)
[2018-03-10] MEDS: DOCUSATE SODIUM 100 MG CAPSULE (FP) PO SCH (09:56)
[2018-03-10] MEDS ORDERED: RAMIPRIL 5 MG CAPSULE (FP) PO SCH (10:00)
[2018-03-10] MEDS ORDERED: PANTOPRAZOLE SODIUM 40 MG VIAL IVPUSH SCH (10:00)
[2018-03-10] MEDS ORDERED: FINASTERIDE 5 MG TABLET (FP) PO SCH (10:00)
--- NOTE | 2018-03-10 11:47 | DS ---
Physical Exam: SUBJECTIVE: Patient seen and examined. Pt. is POD# 1. No acute events overnight. Pt. denies any complaints at this time including chest pain, shortness of breath or fever. Pt. endorses mild tenderness to palpation of the abdomen. OBJECTIVE: Vital Signs Period Temp Pulse Resp BP Sys/Mcbride Pulse Ox Last 24 Hr 97.4 F-99.3 F 61-88 14-20 140-162/73-95 97-100 PHYSICAL EXAM GENERAL: The patient is awake, alert, and fully oriented, in no acute distress, decreased jaundice. EYES: sclera anicteric, conjunctiva clear. No ptosis. ENT: Ears normal, nares patent, oropharynx clear without exudates, moist mucous membranes. LUNGS: Breath sounds equal, clear to auscultation bilaterally, no wheezes, no crackles, no accessory muscle use. HEART: Regular rate and rhythm, S1, S2 ABDOMEN: Soft, mild tenderness to palpation, nondistended, hyperactive bowel sounds, no guarding, no rebound, no hepatomegaly EXTREMITIES: 2+ dorsal pedal pulses, warm, well-perfused, no calf tenderness, no edema. NEUROLOGICAL: Normal speech, gait not observed. PSYCH: Normal mood, normal affect. SKIN: Warm, dry, normal turgor, no rashes or lesions noted LABS Laboratory Results - last 24 hr 03/10/18 03/10/18 03/10/18 06:30 06:30 06:30 WBC 9.2 RBC 4.07 Hgb 13.0 Hct 39.3 MCV 96.4 H MCH 32.0 MCHC 33.2 RDW 13.2 Plt Count 225 MPV 10.6 Absolute Neuts (auto) 7.1 Neutrophils % 77.1 Lymphocytes % 11.6 D Monocytes % 8.7 Eosinophils % 2.1 Basophils % 0.5 Nucleated RBC % 0 Sodium 134 L Potassium 3.7 Chloride 99 Carbon Dioxide 29 Anion Gap 6 L BUN 5 L Creatinine 0.6 Creat Clearance w eGFR > 60 Random Glucose 109 H Calcium 8.1 L Phosphorus 3.5 Magnesium 1.9 Total Bilirubin 1.5 H Direct Bilirubin 0.7 H AST 77 H ALT 63 H Alkaline Phosphatase 163 H Total Protein 5.8 L Albumin 2.5 L HOSPITAL COURSE: Date of Admission:02/28/18 Date of Discharge: 03/10/18 Pt. admitted for abdominal pain 2/2 pancreatitis 2/2 cholecystitis. Pt. had Abdominal US and MRCP which showed thickened gall bladder with stones, distal choledocolithiasis and trace bilateral pleural effusion. Pt. had 1st ERCP as LFTs were trending upward with increasing bilirubin. Sphincterotomy was performed. The next day, LFTs were down trending but Bilirubin increased significantly and decision was made by Gastroeterologist to perform second ERCP( concern over ascending cholangitis) with stent placed in left hepatic duct because of a stone fragment that was unable to be reached. Pt. was monitored, had Repeat MRCP and HIDA scan which showed presences of intrahepatic stone fragment and cystic duct obstruction by stone respectively. HIDA scan did not show any biliary leak. Decision was made to monitor patient until cholecyctitis "cooled" down and then cholecystectomy was performed. Throughout hospital course until gallbladder was removed Pt. remained on antibiotics. After initial ERCP Pt. complained of Chest pain likely GI related as troponins and EKGs were negative for ACS. Echocardiogram showed mildly reduced LV function with mild global hypokinesis, EF:45-50% and moderate AR. Cardiology did note irregular rhythm and rate. Pt. referred for outpatient workup as detailed below. Pt. advised for GI and surgical follow up as detailed below. Gastroenterology, Infectious Disease, General Surgery and Cardiology consults were appreciated. Hospital course was discussed and agreed upon with Pt., family and medical staff. Minutes to complete discharge: 34 Discharge Summary Reason For Visit: CHEST PAIN, PANCREATITIS Current Active Problems Abdominal pain (Acute) Abnormal liver function tests (Acute) Acute biliary pancreatitis (Acute) Choledocholithiasis with obstruction (Acute) Gallstone pancreatitis (Acute) Jaundice with stoppage of bile flow (Acute) Pancreatitis (Acute) Vomiting (Acute) Condition: Improved - Instructions Diet, Activity, Other Instructions: You were admitted for abdominal pain and found to have pancreatitis and cholecystitis. You had 2 ERCPs performed and a Cholecystectomy. Please continue to take your home medications as prescribed. Please follow up with your Primary Care Physician within 1 week. Please follow up with your Research Coordinator, Dr. Andino, within 2 weeks for repeat echocardiogram. Please follow up with Dr. Mejia(Director Of Education) within 1 week. Please follow up for stent removal in 2-3 months period. Please call to make appointments. Dr. Domingo Discharge Instructions Dear MONIQUE RIVAS, Post Operative Instructions Physical activity Resume your normal everyday activity as tolerated no heavy lifting or exercise until seen by your surgeon. You may walk unlimited amounts of and climb stairs. You may resume driving the car when you feel safe and comfortable behind the wheel. Wound care If you have a bandage, leave it on, and keep dry for 72 hours. After that time discard the outer bandage. You have a liquid bandaid over your incision. This will begin to flake off over the next few days. DO NOT peel it. It will come off on its own. You may shower 2 days after surgery. Allow the soap and water to run over your incision, DO NOT SCRUB the incision. Pat dry well after showering. Diet There are no dietary restrictions. Eat healthy, high-fiber foods. Drink 6 to 8 glasses of liquid each day. This will assist in keeping your bowels are regular. Pain management You may take Tylenol (acetaminophen) or Ibuprofen (for example, Motrin, Advil etc.) Any pain prescription medication ordered should be taken as prescribed for moderate to severe pain. Call Dr. Domingo for any of the following: Severe pain not relieved by medication Fever of 101 or higher Excessive bleeding or drainage on dressing Inability to urinate ISTOP reference: [id number] Call the office of Dr. Domingo at [phone] for a post operative appointment in 7 - 10 days. Referrals: Montrell Domingo MD [Staff Physician] - David Andino MD [Staff Physician] - Gilma Mejia MD [Staff Physician] - Disposition: HOME - Home Medications Comprehensive Discharge Medication List: Ambulatory Orders Ramipril 5 mg PO DAILY 02/03/14 Metoprolol Succinate 50 mg PO DAILY 03/01/18 Finasteride [Proscar -] 5 mg PO DAILY 03/02/18 This patient is new to me today: No Emergency Visit: Yes ED Registration Date: 02/28/18 Care time: The patient presented to the Emergency Department on the above date and was hospitalized for further evaluation of their emergent condition. Critical Care patient: No - Discharge Referral Referred to [facility] No
--- NOTE | 2018-03-10 12:00 | PN ---
Progress Note (short form) - Note Progress Note: s: feels well, no cp sob palps dizzy o: Vital Signs Period Temp Pulse Resp BP Sys/Mcbrdie Pulse Ox Last 24 Hr 97.4 F-99.3 F 61-88 14-20 140-162/73-95 97-100 Constitutional: Yes: Well Nourished, No Distress, Calm Neck: Yes: Supple, Trachea Midline Respiratory: Yes: Regular, CTA Bilaterally Gastrointestinal: Yes: Normal Bowel Sounds, Soft Cardiovascular: Yes: Regular Rate and Rhythm JVD: No Heart Sounds: Yes: S1, S2 Edema: No Peripheral Pulses: 2+ Left Doralis Pedis, 2+ Right Dorsalis Pedis Integumentary: No: Erythema jaundice diaphoresis Neurological: Yes: Alert, Oriented Psychiatric: Yes: Alert, Oriented Current Medications Generic Name Dose Route Start Last Admin Trade Name Freq PRN Reason Stop Dose Admin Docusate Sodium 100 mg 03/09/18 22:00 03/10/18 09:56 Colace - PO 100 mg BID KONRAD Administration Finasteride 5 mg 03/10/18 10:00 03/10/18 09:56 Proscar - PO 5 mg DAILY KONRAD Administration Lactated Ringer's 1,000 ml in 1,000 mls @ 50 mls/hr 03/09/18 13:07 03/10/18 06:32 Lactated Ringers Solution IV 50 mls/hr ASDIR KONRAD Administration Metoprolol Succinate 50 mg 03/10/18 10:00 03/10/18 09:56 Toprol Xl - PO 50 mg DAILY KONRAD Administration Oxycodone HCl 5 mg 03/09/18 13:07 Roxicodone - PO Q4H PRN PAIN LEVEL 1-5 Pantoprazole Sodium 40 mg 03/10/18 10:00 03/10/18 09:56 Protonix Iv IVPUSH 40 mg DAILY KONRAD Administration Ramipril 5 mg 03/10/18 10:00 03/10/18 09:56 Altace - PO 5 mg DAILY KONRAD Administration CBC, BMP 03/10/18 06:30 03/10/18 06:30 EKG: sinus with PVCs and PACs echo 07/2015: nl lv/rv, mod tr, mild-mod ar, nl rvsp, mod ao root dil echo 02/2018: mild dec lvef, global hk, nl rv, mod ar, mild mr, mild tr, mild ao root dil mibi 07/2015: nl mpi Assessment/Plan Chest pain, abnormal EKG, PVCs and PACs - neg trops this admission, now chest pain free - no ischemic changes on EKG - recent nuclear stress test unremarkable - PACs and PVCs noted on tele and EKG, no h/o palps, on bb - history of chest pain/abd pain most likely in setting of pancreatitis/ cholecystitis Pancreatitis, cholecystitis - GI and surgery following, s/p cholecystectomy HTN -cont current meds HLD - holding statin in setting of elevated LFTs cardiomyopathy: -echo here showing mild dec lvef, new from 2016 echo -no signs chf or acs -likely reduced lvef related to acute illness (pancreatitis, marcy). Cont junaid, bb. Outpt f/u with cardio with plans for repeat echo after recovers from acute issues.
[2018-03-10 15:10] VITALS: BP 140/75; PULSE 80; TEMP 98.5
--- NOTE | 2018-03-10 16:16 | PATH ---
Surgical Pathology Report Patient Name: MONIQUE RIVAS Med. Rec. #: [id number] /Age/Gender: 1935 (Age: 82) / M Account: [id number] Location: [address] [place] [address]/[facility] Taken: 03/09/2018 Received: 03/09/2018 Reported: 03/10/2018 Physicians: MD Amber Martinez M.D. Specimen(s) Received GALLBLADDER Clinical History Choledocholithiasis Final Diagnosis GALLBLADDER, LAPAROSCOPIC CHOLECYSTECTOMY: CHRONIC CHOLECYSTITIS AND CHOLELITHIASIS. ONE BENIGN PERIDUCTAL LYMPH NODE (0/1). Electronically Signed Elvira Quintanilla M.D. Gross Description Received in formalin, labeled "gallbladder," is an 8.7 x 3.4 x 2.6 cm. gallbladder with a 0.2 cm. in length portion of cystic duct attached. There is a 0.7 cm in greatest dimension buck-red possible periductal lymph node present. The outer surface is buck-pink and varies from smooth to shaggy. The lumen contains buck, tenacious bile as well as abundant black, irregular to fragmented choleliths ranging from 0.1-0.4 cm in greatest dimension. The mucosa is buck-red and velvety. The wall of the gallbladder ranges from 0.1-0.3 cm. in thickness. Machinist Job Setter sections are submitted in one cassette. /03/09/201803/09/2018
--- NOTE | 2018-03-10 21:34 | PN ---
Teaching Attending Note Name of Resident: Wes Stearns ATTENDING PHYSICIAN STATEMENT I saw and evaluated the patient. I reviewed the resident's note and discussed the case with the resident. I agree with the resident's findings and plan as documented. SUBJECTIVE: pATIENT IS BETTER TODAY , NO FEVR OR CHILLS, ABLE TO TOLERATE LIQUID DIET. OBJECTIVE: Vital Signs Temperature 98.5 F 03/10/18 09:00 Pulse Rate 80 03/10/18 09:00 Respiratory Rate 20 03/10/18 09:00 Blood Pressure 140/75 03/10/18 09:00 O2 Sat by Pulse Oximetry (%) 98 03/09/18 20:10 GENERAL: The patient is awake, alert, and fully oriented, in no acute distress. EYES: sclera anicteric, conjunctiva clear. ENT: Ears normal, moist mucous membranes LUNGS: Breath sounds equal, clear to auscultation bilaterally, no wheezes, no crackles, no accessory muscle use. HEART: Regular rate and rhythm, S1, S2 without murmur ABDOMEN: Soft, nontender, nondistended, normoactive bowel sounds, no guarding, no rebound EXTREMITIES: 2+ dorsal pedal pulses, warm, no calf tenderness, well-perfused, no edema. NEUROLOGICAL: Normal speech, gait not observed. PSYCH: Normal mood, normal affect. SKIN: Warm, dry, normal turgor CBCD WBC 9.2 K/mm3 (4.0-10.0) 03/10/18 06:30 RBC 4.07 M/mm3 (4.00-5.60) 03/10/18 06:30 Hgb 13.0 GM/dL (11.7-16.9) 03/10/18 06:30 Hct 39.3 % (35.4-49) 03/10/18 06:30 MCV 96.4 fl (80-96) H 03/10/18 06:30 MCHC 33.2 g/dl (32.0-35.9) 03/10/18 06:30 RDW 13.2 % (11.9-15.9) 03/10/18 06:30 Plt Count 225 K/MM3 (134-434) 03/10/18 06:30 MPV 10.6 fl (7.5-11.1) 03/10/18 06:30 CMP Sodium 134 mmol/L (136-145) L 03/10/18 06:30 Potassium 3.7 mmol/L (3.5-5.1) 03/10/18 06:30 Chloride 99 mmol/L (98-107) 03/10/18 06:30 Carbon Dioxide 29 mmol/L (21-32) 03/10/18 06:30 Anion Gap 6 MMOL/L (8-16) L 03/10/18 06:30 BUN 5 mg/dL (7-18) L 03/10/18 06:30 Creatinine 0.6 mg/dL (0.55-1.3) 03/10/18 06:30 Creat Clearance w eGFR > 60 (>60) 03/10/18 06:30 Random Glucose 109 mg/dL (74-106) H 03/10/18 06:30 Calcium 8.1 mg/dL (8.5-10.1) L 03/10/18 06:30 Total Bilirubin 1.5 mg/dL (0.2-1) H 03/10/18 06:30 AST 77 U/L (15-37) H 03/10/18 06:30 ALT 63 U/L (13-61) H 03/10/18 06:30 Alkaline Phosphatase 163 U/L (45-117) H 03/10/18 06:30 Total Protein 5.8 g/dl (6.4-8.2) L 03/10/18 06:30 Albumin 2.5 g/dl (3.4-5.0) L 03/10/18 06:30 CARDIAC ENZYMES Creatine Kinase 30 IU/L (26-308) 03/07/18 09:30 Troponin I < 0.02 ng/ml (0.00-0.05) 03/07/18 14:50 Home Medications Medication Instructions Recorded RX: Ramipril 5 mg PO DAILY 02/03/14 RX: Metoprolol Succinate 50 mg PO DAILY 03/01/18 RX: Finasteride [Proscar -] 5 mg PO DAILY 03/02/18 ASSESSMENT AND PLAN: Patient is a 82 y/o man with h/o HTN, HLP, and BPH who presented with abdominal pain and was found to have acute pancreatitis with transaminitis . #pod #1 S/P lAP CHOLECYSTECTOMY DUE TO HAVING Acute gallstone pancreatitis: s/ p MRCP positive for choledocolithiasis , s/p ERCP x2 , 2 stones were found that had moved from GB, 1 was in the CBD- removed, 1 in the left hepatic duct was unable to be removed, therefore stent (7 FR-4 cm length) was placed. iNCENTIVE INSPIROMETER. # Acute Transaminitis trending down. # Acute cholecystitis : s/p MRCP; cont Abx ( Flagyl, Unasyn ), S/P CCY # HTN : cont meds continue Altace, Toprol Xl oK TO DISCHARGE THE PATIENT HOME PER SURGEON.
== END 2018-03-10 17:43 | disposition home or self-care (01) | DRG 417 ==
LOC: JER 21:06 → JERBED 23:31 → J4W 03-01 06:47 → J8W 03-04 18:33 → J4W 03-05 18:55 → J6S 03-09 15:36
PROVIDERS: ADMIT Internal Medicine; ATTEND Internal Medicine
PROC: 0FC98ZZ Extirpation of Matter from Common Bile Duct, Via Natural or Artificial Opening Endoscopic (ICD-10-PCS; 2018-03-03)
PROC: 0F798DZ Dilation of Common Bile Duct with Intraluminal Device, Via Natural or Artificial Opening Endoscopic (ICD-10-PCS; 2018-03-04)
PROC: 0FT44ZZ Resection of Gallbladder, Percutaneous Endoscopic Approach (ICD-10-PCS; principal; 2018-03-09 13:30)
DX: K80.43 Calculus of bile duct with acute cholecystitis with obstruction (principal); K85.10 Biliary acute pancreatitis without necrosis or infection; I10 Essential (primary) hypertension; E78.5 Hyperlipidemia, unspecified; N40.0 Benign prostatic hyperplasia without lower urinary tract symptoms; R74.0 Nonspecific elevation of levels of transaminase and lactic acid dehydrogenase [LDH]; R94.5 Abnormal results of liver function studies; I49.3 Ventricular premature depolarization
CPT/HCPCS: 36415; 71045-TC-FY; 74177-TC; 74182-TC; 74330-TC; 76705-TC; 78226-TC; 80048; 80053; 80076; 82150; 82248; 82550; 82977; 83690; 83735; 84100; 84478; 84484; 85025; 85610; 86140; 86704; 86705; 86706; 86708; 86803; 86850; 86900; 86901; 87040; 87340; 88304-TC; 93005; 93010; 93306-TC; 94760; 99284-25; A9537; J7030

== ENCOUNTER 2022-07-03 04:34 | Day surgery (SDC) | payer OTHER ==
[2022-06-28 17:54] VITALS: BMI 25.0
[2022-07-03] MEDS ORDERED: PROPOFOL 20 ML ONE (13:16)
[2022-07-03] MEDS ORDERED: LIDOCAINE HCL/PF 2% SDV 5ML VIAL ONE (13:16)
[2022-07-03] MEDS ORDERED: SUCCINYLCHOLINE CHLORIDE 200 MG/10 ML SYRINGE ONE (13:18)
[2022-07-03] MEDS ORDERED: ceFAZolin SODIUM 1 GM VIAL IVPB ONE (13:35)
[2022-07-03] MEDS ORDERED: oxyCODONE HCL 5 MG TABLET PO PRN (13:52)
[2022-07-03] MEDS ORDERED: ONDANSETRON 4 MG/2 ML VIAL IVPUSH PRN (13:52)
[2022-07-03] MEDS ORDERED: LACTATED RINGERS SOLUTION 1,000 ML IV SCH (14:00)
[2022-07-03] MEDS ORDERED: LABETALOL HCL 5 MG/1 ML (100MG/20 ML VIAL) IVPUSH ONE (14:58)
[2022-07-03 17:13] VITALS: BP 180/89; PULSE 64; RESP 20; TEMP 97.7
== END 2022-07-03 16:50 | disposition home or self-care (01) ==
LOC: JASU-SURG 04:34
PROVIDERS: ATTEND Urology
PROC: 0VT08ZZ Resection of Prostate, Via Natural or Artificial Opening Endoscopic (ICD-10-PCS; principal; 2022-07-03 13:30)
DX: N40.1 Benign prostatic hyperplasia with lower urinary tract symptoms (principal); R33.9 Retention of urine, unspecified
CPT/HCPCS: 94760